=== PATIENT | male | born 1945 | race Caucasian/White ===

== ENCOUNTER → 2020-05-01 11:20 | Outpatient (CLI) | payer MEDICARE, OTHER, SELFPAY ==
[2020-05-03 08:48] LABS: COVID19 Sendout Not Detected (Not Detect)
== END ==
PROVIDERS: Family Provider Internal Medicine; PCP Internal Medicine; Visit Provider Nurse Practitioner
DX: Z01.812 Encounter for preprocedural laboratory examination (principal)
CPT/HCPCS: 87635

== ENCOUNTER 2020-05-04 10:13 | Day surgery (SDC) | payer MEDICARE, OTHER, SELFPAY ==
--- NOTE | 2020-05-03 12:05 | PM.PREOP ---
Pre-operative Note COVID-19 COVID-19 status: Negative Interval Note History & Physical reviewed/Exam performed by Physician: Yes Changes to H&P: No
--- NOTE | 2020-05-03 12:10 | PM.OP.1 ---
Operative Date/Time/Diagnoses Date of procedure: 05/04/20 Time of procedure: 11:45 Procedure & Clinicians Procedure: Preoperative diagnoses: 1. Right complex advanced nuclear sclerotic and cortical cataract. 2. Myopia and astigmatism which he likes to correct with a toric intraocular lens implant with a nearsighted target 3. Atrial fibrillation 4. Coronary artery disease 5. Pre diabetes Postoperative diagnoses: 1. Complex cataract removed by phacoemulsification with placement of a toric posterior chamber intraocular lens. 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 He is a high myope and has high astigmatism The patient wants surgery to improve vision. He chooses a toric intraocular lens implant with a target -2.50. His cataract is very advanced and there was poor red reflex use of capsular extra safety is planned. The patient was taken to the operating room and in a sitting position topical proparacaine drops were placed. Indelible ink amezcua were placed at the 90 and 180 degree meridian. He was then given IV sedation. A drop of proparacaine is planning and he is prepped using Betadine solution, and draped in the usual sterile fashion. Topical lidocaine jelly was then placed. Temporal approach was made, a 1 mm side-port incision was made 90? from the proposed clear corneal incision position. Phenylephrine 1.5% mixed with 1% xylocaine 0.2 cc was placed into the anterior chamber. Due to poor red reflex and air bubble was placed followed by Visudyne capsular dye onto the anterior capsule. This was then irrigated out with BSS. Viscoat followed by Healon was then placed. A 2.6 mm clear incision with a 2.6 mm blade was placed. A 360 degree capsulorrhexis style capsulotomy was then performed with a cystitome needle on a Healon greatly aided by the capsular dye. Hydrodelineation and hydrodissection were performed. The phacoemulsification unit is introduced, and sculpting notice used to groove the central lens. It had a very dense nuclear core. It is then removed in chopping mode. Epi nucleus is removed with epinuclear mode and irrigation aspiration was used to remove the peripheral cortex. The posterior capsule is polished. The intraocular lens is selected, inspected, power confirmed, and placed in the posterior chamber and rotated to the desired axis of 86?. The wound was stromally hydrated and tested for leaks, there was none and it was left sutureless. Vigamox 0.1 cc was placed into the anterior chamber. Kenalog 0.2 cc was placed in the superior subconjunctival space. A drop of antibiotic and was placed and a bandage contact lens placed and the eye shielded. The patient was stable and returned to the recovery room in excellent condition. Dictated by: Nirali Guevara MD Copy to: [facility] Same procedure as scheduled: Yes
[2020-05-04] MEDS: PROPARACAINE 0.5% OPHTH SOL 2 DROPS EYE-OP ×3 (11:12→12:22)
[2020-05-04 11:13] VITALS: BP 118/72; PULSE 66; RESP 16; TEMP 37; O2SAT 99; BMI 29.0
[2020-05-04] MEDS: CATARACT EYE COMPOUND (10 DROPS/SYRINGE) 3 DROPS EYE-OP (11:24)
[2020-05-04] MEDS: CHONDROIDTIN/SOD HYALURONATE 1.05 ML SYRINGE INTRAOCULA ×2 (12:27→13:06)
[2020-05-04] MEDS: ERYTHROMYCIN OPHTH 1 GM OINT 1 APPLIC EYE-RIGHT (12:28)
[2020-05-04] MEDS: HYALURONATE SODIUM 10 MG/ML SYRINGE INJ (12:28)
[2020-05-04] MEDS: LIDOCAINE JELLY 2% 5 ML 1 APPLIC TOP (12:28)
[2020-05-04] MEDS: MOXIFLOXACIN INJ 5 MG/ML VIAL EYE-OP (12:29)
[2020-05-04] MEDS: BALANCED SALT IRRIG SOLN NO.2 500 ML, EPINEPHrine 1 MG IRR (12:29)
[2020-05-04] MEDS: PHENYLEPHRINE/LIDOCAINE VIAL (OR) 0.2 ML EYE-OP (12:29)
[2020-05-04] MEDS: TRIAMCINOLONE 50 MG/5 ML VIAL INJ (12:29)
[2020-05-04] MEDS: TRYPAN BLUE 0.5 ML SYRINGE INJ (12:32)
[2020-05-04 13:18] VITALS: BP 104/66; PULSE 58; RESP 12; TEMP 36.9; O2SAT 97
== END 2020-05-04 13:35 | disposition home or self-care (01) ==
LOC: OR 10:20
PROVIDERS: Family Provider Internal Medicine; PCP Internal Medicine; Referring Provider Ophthalmology; Visit Provider Ophthalmology
PROC: (CPT 66982; principal; 2020-05-04 11:45)
DX: H25.811 Combined forms of age-related cataract, right eye (principal); H52.11 Myopia, right eye; H52.201 Unspecified astigmatism, right eye; I48.91 Unspecified atrial fibrillation; I25.10 Atherosclerotic heart disease of native coronary artery without angina pectoris; R73.03 Prediabetes
CPT/HCPCS: 66982; J0171; J2250; J2704; J3301; V2787

== ENCOUNTER → 2020-05-16 14:51 | Outpatient (CLI) | payer MEDICARE, OTHER, SELFPAY ==
[2020-05-16 16:48] LABS: COVID19 -Nasal RAPID Negative (Negative)
== END ==
PROVIDERS: Family Provider Internal Medicine; PCP Internal Medicine; Visit Provider Physician Assistant
DX: Z11.59 Encounter for screening for other viral diseases (principal)
CPT/HCPCS: 87635

== ENCOUNTER 2020-05-18 08:59 | Day surgery (SDC) | payer MEDICARE, OTHER, SELFPAY ==
--- NOTE | 2020-05-18 07:47 | PM.PREOP ---
Pre-operative Note COVID-19 COVID-19 status: Negative Interval Note History & Physical reviewed/Exam performed by Physician: Yes Changes to H&P: No
--- NOTE | 2020-05-18 07:48 | PM.OP.1 ---
Operative Date/Time/Diagnoses Date of procedure: 05/18/20 Time of procedure: 10:45 Procedure & Clinicians Procedure: Preoperative diagnoses: 1. Complex advanced mature Nuclear sclerotic cataract with need for capsular dye. 2. Astigmatism which is to be corrected with a toric intraocular lens implant. 3. Pre diabetes 4. Multiple vessel coronary artery disease 5. Status post myocardial infarction 6. Atrial fibrillation Postoperative diagnoses: 1. Complex cataract removal with phacoemulsification with toric posterior chamber intraocular lens implant placed and use of capsular dye. Procedure: Complex Phacoemulsification with posterior chamber toric intraocular lens implant. 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 He is a high myope and has had successful surgery in his right eye with a myopic target. The patient wants surgery to improve vision and astigmatism. He desires topical anesthesia and a myopic target. The patient was taken to the operating room and proparacaine drops placed. Indelible ink amezcua were placed at the 90 and 180 degree meridian. The patient was placed on the operating room table and given IV sedation. A additional topical proparacaine was placed , prepped using Betadine solution, and draped in the usual sterile fashion. 2% topical xylocaine jelly and cornea. Temporal approach was made, a 1 mm side-port incision was made 90? from the proposed corneal wound. Phenylephrine 1.5% mixed with 1% xylocaine 0.2 cc was placed into the anterior chamber. An air bubble was placed followed byVisudyne capsular dye. Dye was then irrigated out using BSS. Viscoat followed by Healon was then placed. A 2.6 mm clear incision with a 2.6 mm blade was placed at the 170 degree meridian. A 360 degree capsulorrhexis style capsulotomy was then performed with a cystitome needle on a Healon greatly aided by the capsular dye. Very deep-set orbit. Completed with Utrata forceps Hydrodelineation and hydrodissection were performed. The phacoemulsification unit is introduced, and sculpting used to groove the central lens. It is then removed in chopping mode. Epi nucleus is removed with epinuclear mode and irrigation aspiration was used to remove the peripheral cortex. The posterior capsule is polished. The intraocular lens is selected, inspected, power confirmed, and placed in the posterior chamber at the desired meridian of 092 ?. The pupil was not constricted. The wound was stromally hydrated and tested for leaks, there was none and it was left sutureless. Vigamox 0.1 cc was placed into the anterior chamber. Kenalog 0.2 cc was placed in the superior subconjunctival space. A drop of antibiotic and was placed and the eye was shielded. The patient was stable and returned to the recovery room in excellent condition. Dictated by: Nriali Guevara MD Copy to: [facility] Same procedure as scheduled: Yes
[2020-05-18] MEDS: PROPARACAINE 0.5% OPHTH SOL 2 DROPS EYE-OP ×3 (09:24→10:24)
[2020-05-18 09:26] VITALS: BP 142/68; PULSE 62; RESP 12; TEMP 36.8; O2SAT 99; BMI 28.6
[2020-05-18] MEDS: CATARACT EYE COMPOUND (10 DROPS/SYRINGE) 3 DROPS EYE-OP (09:36)
[2020-05-18] MEDS: MOXIFLOXACIN INJ 5 MG/ML VIAL EYE-OP (10:37)
[2020-05-18] MEDS: HYALURONATE SODIUM 10 MG/ML SYRINGE INJ (10:37)
[2020-05-18] MEDS: CHONDROIDTIN/SOD HYALURONATE 1.05 ML SYRINGE INTRAOCULA (10:37)
[2020-05-18] MEDS: PHENYLEPHRINE/LIDOCAINE VIAL (OR) 0.2 ML EYE-OP (10:38)
[2020-05-18] MEDS: TRIAMCINOLONE 50 MG/5 ML VIAL INJ (10:38)
[2020-05-18] MEDS: BALANCED SALT IRRIG SOLN NO.2 500 ML, EPINEPHrine 1 MG IRR (10:38)
[2020-05-18] MEDS: TRYPAN BLUE 0.5 ML SYRINGE INJ (10:39)
[2020-05-18 14:42] VITALS: BP 98/64; PULSE 67; RESP 12; TEMP 36.6; O2SAT 93
== END 2020-05-18 11:38 | disposition home or self-care (01) ==
LOC: OR 09:07
PROVIDERS: Family Provider Internal Medicine; PCP Internal Medicine; Referring Provider Internal Medicine; Visit Provider Ophthalmology
PROC: (CPT 66982; principal; 2020-05-18 10:45)
DX: H25.12 Age-related nuclear cataract, left eye (principal); I48.91 Unspecified atrial fibrillation; I10 Essential (primary) hypertension; R73.03 Prediabetes; I25.10 Atherosclerotic heart disease of native coronary artery without angina pectoris; I25.2 Old myocardial infarction; G43.909 Migraine, unspecified, not intractable, without status migrainosus
CPT/HCPCS: 66982; J0171; J2250; J3301; V2787

== ENCOUNTER 2022-03-14 13:30 | Emergency (ER) | payer MEDICARE, OTHER, SELFPAY ==
[2022-03-14] VITALS (11 sets, daily range): BP systolic 125–172; BP diastolic 61–92; PULSE 52–72; RESP 12–29; TEMP 37.1; O2SAT 97–99; BMI 29.1
--- NOTE | 2022-03-14 14:20 | DI.RAD.S_ITS ---
PROCEDURE: XR CHEST 1V INDICATIONS: chest pain TECHNIQUE: One view of the chest was acquired. COMPARISON: [facility], , CHEST 1 VIEW, 01/10/2017, 16:10. FINDINGS: Surgical changes and devices: None. Lungs and pleura: Lungs are clear. No pleural effusions or pneumothorax. Mediastinum: Mediastinal contours appear normal. Heart size is normal. Bones and chest wall: No suspicious bony lesions. Overlying soft tissues appear unremarkable. IMPRESSION: No acute cardiopulmonary findings Approved by: Jacob Burt M.D. on 03/14/2022 at 14:20
[2022-03-14 14:44] LABS: Add Manual Diff / Slide Review NO; Basophils Absolute Auto 0 /uL (0-100); Basophils Percent Auto 0.4 % (0-2); Eosinophils Absolute Auto 100 /uL (0-450); Eosinophils Percent Auto 1.9 % (2-4); Hematocrit 39.9 % (41-53); Hemoglobin 13.8 g/dL (13.5-17.5); Lymphocytes Absolute Auto 1500 /uL (1100-4500); Lymphocytes Percent Auto 24.4 % (25-40); Mean Corpuscular HGB Conc 34.5 % (30-36); Mean Corpuscular Hemoglobin 31.1 PG (26-34); Monocytes Absolute Auto 700 /uL (0-900); Monocytes Percent Auto 11.2 % (3-14); Neutrophils Absolute Auto 3800 /uL (1500-7000); Neutrophils Percent Auto 62.1 % (50-75); Platelet Count 157 X10^3/uL (150-400); Red Blood Cell Count 4.43 X10^6/uL (4.5-5.9); White Blood Cell Count 6.1 X10^3/uL (4.5-11.0)
[2022-03-14 14:47] LABS: Prothrombin Time 11.6 SECONDS (10.1-12.7)
[2022-03-14 14:49] LABS: PTT Partial Thromboplastin Tim 32 SECONDS (26-36)
[2022-03-14 14:51] LABS: Alanine Aminotransferase 31 IU/L (<50); Albumin 4.7 g/dL (3.5-5.0); Albumin Globulin Ratio 1.6 (1.0-2.8); Alkaline Phosphatase 47 U/L (38-126); Aspartate Aminotransferase 36 IU/L (17-59); BUN Creatinine Ratio 19.2 (6-22); Bilirubin Total 0.6 mg/dL (0.2-1.3); Blood Urea Nitrogen 24 mg/dL (9-20); Calcium 10.4 mg/dL (8.4-10.2); Carbon Dioxide 30 mmol/L (22-32); Chloride 100 mmol/L (98-107); Creatine Kinase 264 U/L (55-170); Estimated Glomerular Filt Rate > 60 mL/min (>60); Globulin 2.9 g/dL (1.7-4.1); Glucose 93 mg/dL (80-110); HEMOLYSIS < 15 (0-50); Lipase 81 U/L (23-300); Magnesium 2.1 mg/dL (1.6-2.3); Potassium 4.4 mmol/L (3.4-5.1); Sodium 139 mmol/L (137-145); Total Protein 7.6 g/dL (6.3-8.2)
[2022-03-14 15:02] LABS: Troponin I < 0.012 ng/mL (0.01-0.034)
[2022-03-14 15:06] LABS: CKMB % Relative Index 2.2 % (1.5-5.0); Creatine Kinase MB 5.83 ng/mL (<2.37)
--- NOTE | 2022-03-14 17:05 | ED_ITS ---
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 Patient states that he has a history of atrial fibrillation, eventually atrial flutter with 29 cardioversions in his past, no recent sustained arrhythmias but he states he feels his PACs and occasional bigeminy which has captured on his home monitoring device. Patient also endorses history of 5 alcohol ablation for atrial fibrillation and flutter, the 1st time was failed because he had an active MD and instead received a stent to his RCA. Has since had clean cardiac angiography. He is not on anticoagulants. Patient states he has not been able to capture any arrhythmia on EKG yet and he is not had any chest pain, shortness of breath, weakness, nausea, vomiting or other symptom at all. He states he has worn a Holter monitor in the past without any signs of an abnormal rhythm. He states he discontinued this compounded supplement 2 days ago and has had improvement in his episodes PACs. Patient's clothespin drier operator is Dr. Tyrone haddad out of [place], his primary care provider is Dr. Neumann. Related Data Home Medications Medication Instructions Recorded Confirmed metformin 500 mg tablet,extended 500 mg PO BIDAC ##0 09/27/16 05/18/20 release 24 hr (Glucophage XR) [DHEA] 50 mg PO QDAY ##0 01/10/17 05/04/20 [PHOSPHATIDYL SERINE] 100 mg PO HS ##0 01/10/17 05/04/20 [PREGNENOLONE] 100 mg PO QDAY ##0 01/10/17 05/04/20 [ULTRA VITAMIN K] 1 PO QDAY ##0 01/10/17 [VINPOCETINE] 1 tab PO HS ##0 01/10/17 05/04/20 gabapentin 300 mg capsule 600 mg PO BID ##0 01/10/17 05/18/20 (Neurontin) lutein 25 mg-zeaxanthin 5 mg 1 cap PO QDAY ##0 01/10/17 05/18/20 capsule metoprolol succinate 50 mg 50 mg PO BID ##0 01/10/17 05/18/20 tablet,extended release 24 hr dofetilide 250 mcg capsule 500 mcg PO BID ##0 06/02/17 05/18/20 simvastatin 20 mg tablet 20 mg PO BEDTIME ##0 06/02/17 05/18/20 Aspirin Low Dose 81 mg PO DAILY 05/04/20 05/18/20 lisinopril 30 mg tablet 30 mg PO DAILY 05/04/20 05/18/20 levothyroxine 75 mcg capsule 75 mcg PO BID 05/18/20 05/18/20 Allergies Allergy/AdvReac Type Severity Reaction Status Date / Time No Known Drug Allergies Allergy Verified 05/04/20 10:59 Review of Systems <CHAI Collazo - Last Filed: 03/14/22 20:15> Review of Systems Narrative: Review of systems is negative for acute abnormalities unless otherwise noted in HPI Patient History <CHAI Collazo - Last Filed: 03/14/22 20:15> Social History household members: spouse Smoking Status: Former smoker alcohol intake: current Smoking Status: Former smoker alcohol intake frequency: a few times a week Substance Use Type: does not use Exam <CHAI Collazo - Last Filed: 03/14/22 20:15> Narrative Exam Narrative: Reviewed vitals signs and nursing notes. General: cooperative, comfortable, in no acute distress, well groomed HEENT: symmetrical facial expressions, moist mucous membranes Cardiovascular: regular rate and rhythm, occasional PACs on the monitor, transient bigeminy without any persistent arrhythmia, no peripheral edema, warm extremities, S1-S2 without murmur Respiratory: normal effort, able to speak in complete sentences, without wheezing, stridor, or abnormal breath sounds. No retractions or tachypnea. GI: abdomen soft, nontender to palpation, nondistended, without masses, rebound tenderness or exquisite tenderness with exam. MSK: moves all extremities, neurovascularly intact, no weakness, normal tone Skin: brisk capillary refill, without pallor or erythema Neuro: normal speech and cognition, A&O x3, ambulatory, clear speech Psych: mental status is grossly normal, congruent mood, normal affect, pleasant and cooperative Initial Vital Signs Initial Vital Signs: Vital Signs Temperature 98.8 F 03/14/22 14:11 Pulse Rate 60 03/14/22 14:11 Respiratory Rate 16 03/14/22 14:11 Blood Pressure 172/76 H 03/14/22 14:11 Pulse Oximetry 99 03/14/22 14:11 Oxygen Delivery Method 03/14/22 14:11 <Lanette Klein DO - Last Filed: 03/15/22 08:32> Initial Vital Signs Initial Vital Signs: Vital Signs Temperature 98.8 F 03/14/22 14:11 Pulse Rate 60 03/14/22 14:11 Respiratory Rate 16 03/14/22 14:11 Blood Pressure 172/76 H 03/14/22 14:11 Pulse Oximetry 99 03/14/22 14:11 Oxygen Delivery Method 03/14/22 14:11 Scores <CHAI Collazo - Last Filed: 03/14/22 20:15> HEART Score Heart Score history: Slightly Suspicious Heart Score EKG: Normal Heart Score Age: > or = 65 years old Heart Score risk factors: 1-2 risk factors Heart Score troponin: < or = to normal limit Heart Score Total: 3 <Lanette Klein DO - Last Filed: 03/15/22 08:32> HEART Score Heart Score Total: 3 Course <CHAI Collazo - Last Filed: 03/14/22 20:15> Orders Ordered: ED Orders 03/14/22 14:20 XR chest 1V Stat EKG-12 Lead Stat 03/14/22 14:30 Complete Blood Count AUTO DIFF Stat Comprehensive Metabolic Panel Stat Lipase Stat Magnesium Stat Partial Thromboplastin Time Stat Prothrombin Time INR Stat Troponin & CK Cardiac Panel Stat 03/14/22 16:41 UA Complete [Urinalysis and Microscopic] Stat 03/14/22 17:04 EKG-12 Lead Stat 03/14/22 17:05 Consult to Cardiology Stat Vital Signs Vital signs: Vital Signs - 8 hr 03/14/22 14:11 03/14/22 16:00 03/14/22 16:02 Temperature 98.8 F Pulse Rate 60 55 L 72 Respiratory Rate 16 12 12 Blood Pressure 172/76 H 146/68 H 125/63 Pulse Oximetry 99 98 98 Oxygen Delivery Method Room Air Room Air Room Air 03/14/22 16:19 03/14/22 16:31 03/14/22 16:32 Temperature Pulse Rate 52 L 70 Respiratory Rate 13 17 Blood Pressure 135/61 Pulse Oximetry 97 99 Oxygen Delivery Method 03/14/22 16:32 03/14/22 17:00 03/14/22 17:01 Temperature Pulse Rate 60 60 64 Respiratory Rate 14 25 H 29 H Blood Pressure Pulse Oximetry 98 98 98 Oxygen Delivery Method 03/14/22 17:01 03/14/22 17:30 03/14/22 17:31 Temperature Pulse Rate 57 L Respiratory Rate 12 Blood Pressure 168/92 H 125/63 Pulse Oximetry 97 Oxygen Delivery Method 03/14/22 17:31 03/14/22 18:00 03/14/22 18:00 Temperature Pulse Rate 56 L 67 Respiratory Rate 13 23 Blood Pressure 158/85 H Pulse Oximetry 97 97 Oxygen Delivery Method <Lanette Klein, DO - Last Filed: 03/15/22 08:32> Orders Ordered: ED Orders 03/14/22 14:20 XR chest 1V Stat EKG-12 Lead Stat 03/14/22 14:30 Complete Blood Count AUTO DIFF Stat Comprehensive Metabolic Panel Stat Lipase Stat Magnesium Stat Partial Thromboplastin Time Stat Prothrombin Time INR Stat Troponin & CK Cardiac Panel Stat 03/14/22 16:41 UA Complete [Urinalysis and Microscopic] Stat 03/14/22 17:04 EKG-12 Lead Stat 03/14/22 17:05 Consult to Cardiology Stat Vital Signs Vital signs: Vital Signs - 8 hr 03/14/22 14:11 03/14/22 16:00 03/14/22 16:02 Temperature 98.8 F Pulse Rate 60 55 L 72 Respiratory Rate 16 12 12 Blood Pressure 172/76 H 146/68 H 125/63 Pulse Oximetry 99 98 98 Oxygen Delivery Method Room Air Room Air Room Air 03/14/22 16:19 03/14/22 16:31 03/14/22 16:32 Temperature Pulse Rate 52 L 70 Respiratory Rate 13 17 Blood Pressure 135/61 Pulse Oximetry 97 99 Oxygen Delivery Method 03/14/22 16:32 09/14/22 17:00 03/14/22 17:01 Temperature Pulse Rate 60 60 64 Respiratory Rate 14 25 H 29 H Blood Pressure Pulse Oximetry 98 98 98 Oxygen Delivery Method 03/14/22 17:01 03/14/22 17:30 03/14/22 17:31 Temperature Pulse Rate 57 L Respiratory Rate 12 Blood Pressure 168/92 H 125/63 Pulse Oximetry 97 Oxygen Delivery Method 03/14/22 17:31 03/14/22 18:00 03/14/22 18:00 Temperature Pulse Rate 56 L 67 Respiratory Rate 13 23 Blood Pressure 158/85 H Pulse Oximetry 97 97 Oxygen Delivery Method MDM - Arrhythmia/Palpitations <CHAI Collazo - Last Filed: 03/14/22 20:15> Lab Data Result diagrams: 03/14/22 14:30 03/14/22 14:30 Labs: Lab Results 03/14/22 03/14/22 03/14/22 Range/Units 14:30 14:30 14:30 WBC 6.1 (4.5-11.0) X10^3/uL RBC 4.43 L (4.5-5.9) X10^6/uL Hgb 13.8 (13.5-17.5) g/dL Hct 39.9 L (41-53) % MCV 90.0 (80-100) fL MCH 31.1 (26-34) PG MCHC 34.5 (30-36) % RDW 13.0 (11.6-14.8) % Plt Count 157 (150-400) X10^3/uL Neut % (Auto) 62.1 (50-75) % Lymph % (Auto) 24.4 L (25-40) % Williams % (Auto) 11.2 (3-14) % Eos % (Auto) 1.9 L (2-4) % Baso % (Auto) 0.4 (0-2) % Neut # (Auto) 3800 (6232-4046) /uL Lymph # (Auto) 1500 (0262-6545) /uL Williams # (Auto) 700 (0-900) /uL Eos # (Auto) 100 (0-450) /uL Baso # (Auto) 0 (0-100) /uL PT 11.6 (10.1-12.7) SECONDS INR 1.0 (0.9-1.3) APTT 32 (26-36) SECONDS Sodium 139 (137-145) mmol/L Potassium 4.4 (3.4-5.1) mmol/L Chloride 100 (98-107) mmol/L Carbon Dioxide 30 (22-32) mmol/L BUN 24 H (9-20) mg/dL Creatinine 1.25 (0.66-1.25) mg/dL Estimated GFR > 60 (>60) mL/min BUN/Creatinine Ratio 19.2 (6-22) Glucose 93 (80-110) mg/dL Calcium 10.4 H (8.4-10.2) mg/dL Magnesium 2.1 (1.6-2.3) mg/dL Total Bilirubin 0.6 (0.2-1.3) mg/dL AST 36 (17-59) IU/L ALT 31 (<50) IU/L Alkaline Phosphatase 47 (38-126) U/L Total Creatine Kinase 264 H (55-170) U/L CK-MB (CK-2) 5.83 H (<2.37) ng/mL CK-MB (CK-2) Rel Index 2.2 (1.5-5.0) % Troponin I < 0.012 (0.01-0.034) ng/mL Total Protein 7.6 (6.3-8.2) g/dL Albumin 4.7 (3.5-5.0) g/dL Globulin 2.9 (1.7-4.1) g/dL Albumin/Globulin Ratio 1.6 (1.0-2.8) Lipase 81 (23-300) U/L Urine Color Urine Appearance Urine pH (4.5-8.0) Ur Specific [place] (1.000-1.035) Urine Protein (Negative) Urine Glucose (UA) (Negative) g/dL Urine Ketones (NEGATIVE) Urine Occult Blood (Negative) Urine Nitrate (Negative) Urine Bilirubin (NEGATIVE) Urine Urobilinogen (0.2) E.U./dL Ur Leukocyte Esterase (NEGATIVE) Urine RBC (0-5/HPF) Urine WBC (0-5/HPF) Urine Bacteria (None) Ur Culture Indicated? 03/14/22 Range/Units 16:41 WBC (4.5-11.0) X10^3/uL RBC (4.5-5.9) X10^6/uL Hgb (13.5-17.5) g/dL Hct (41-53) % MCV (80-100) fL MCH (26-34) PG MCHC (30-36) % RDW (11.6-14.8) % Plt Count (150-400) X10^3/uL Neut % (Auto) (50-75) % Lymph % (Auto) (25-40) % Williams % (Auto) (3-14) % Eos % (Auto) (2-4) % Baso % (Auto) (0-2) % Neut # (Auto) (5794-0622) /uL Lymph # (Auto) (7632-8269) /uL Williams # (Auto) (0-900) /uL Eos # (Auto) (0-450) /uL Baso # (Auto) (0-100) /uL PT (10.1-12.7) SECONDS INR (0.9-1.3) APTT (26-36) SECONDS Sodium (137-145) mmol/L Potassium (3.4-5.1) mmol/L Chloride (98-107) mmol/L Carbon Dioxide (22-32) mmol/L BUN (9-20) mg/dL Creatinine (0.66-1.25) mg/dL Estimated GFR (>60) mL/min BUN/Creatinine Ratio (6-22) Glucose (80-110) mg/dL Calcium (8.4-10.2) mg/dL Magnesium (1.6-2.3) mg/dL Total Bilirubin (0.2-1.3) mg/dL AST (17-59) IU/L ALT (<50) IU/L Alkaline Phosphatase (38-126) U/L Total Creatine Kinase (55-170) U/L CK-MB (CK-2) (<2.37) ng/mL CK-MB (CK-2) Rel Index (1.5-5.0) % Troponin I (0.01-0.034) ng/mL Total Protein (6.3-8.2) g/dL Albumin (3.5-5.0) g/dL Globulin (1.7-4.1) g/dL Albumin/Globulin Ratio (1.0-2.8) Lipase (23-300) U/L Urine Color Yellow Urine Appearance Clear Urine pH 7.0 (4.5-8.0) Ur Specific [place] 1.010 (1.000-1.035) Urine Protein Negative (Negative) Urine Glucose (UA) Negative (Negative) g/dL Urine Ketones Negative (NEGATIVE) Urine Occult Blood Negative (Negative) Urine Nitrate Negative (Negative) Urine Bilirubin Negative (NEGATIVE) Urine Urobilinogen 0.2 (0.2) E.U./dL Ur Leukocyte Esterase Negative (NEGATIVE) Urine RBC None seen (0-5/HPF) Urine WBC None seen (0-5/HPF) Urine Bacteria None seen (None) Ur Culture Indicated? Cult not indicated Urine Dip Bedside Urine Glucose Negative Bedside Urine Bilirubin - Negative Bedside Urine Ketone - Negative Urine Specific [place] 1.010 Bedside Urine Occult Blood - Negative Bedside Urine pH 6.5 Bedside Urine Protein - Negative Bedside Urine Urobilinogen - Negative Bedside Urine Nitrite - Negative Bedside Urine Leukocytes - Negative Esterase Imaging Data Chest x-ray: Radiologist's Impresson: PROCEDURE:? XR CHEST 1V ? INDICATIONS:? chest pain ? TECHNIQUE:? One view of the chest was acquired.? ? COMPARISON:? [facility], , CHEST 1 VIEW, 01/10/2017, 16:10. ? FINDINGS:? ? Surgical changes and devices:? None.? ? Lungs and pleura:? Lungs are clear.? No pleural effusions or pneumothorax.? ? Mediastinum:? Mediastinal contours appear normal.? Heart size is normal.? ? Bones and chest wall:? No suspicious bony lesions.? Overlying soft tissues appear unremarkable.? ? IMPRESSION:? No acute cardiopulmonary findings ? ? ? Approved by: Jacob Burt M.D. on 03/14/2022 at 14:20 ECG Data Interpretation: EKG independently reviewed by myself at 1431 reveals normal sinus rhythm at 70 bpm with regular axis and intervals. No STEMI, ST segment changes, arrhythmia, or acute ischemic changes. Repeat : EKG independently reviewed by myself at 1737 reveals sinus bradycardia at 59 bpm with regular axis and intervals. No STEMI, ST segment changes, arrhythmia, or acute ischemic changes. MDM Narrative Medical decision making narrative: This is a 76-year-old male presents to the emergency department with concern about increasing PACs, bigeminy, and transient arrhythmia episodes which he has sensation of over the last week since he has been on a supplement called [email or web address] for urinary health. Please see HPI for active ingredients. Patient discontinued this medication 2 days ago and states that he still has sensation of PACs and has capture them on his home monitor which he calls an omicron. In the emergency department today on cardiac monitoring he did have occasional PACs and very short episodes of bigeminy which did not last longer than 10 seconds. Two EKGs were completed approximately 3 hours apart without any PACs, arrhythmia noted. Patient denies any chest pain, shortness of breath, exertional worsening of symptoms, edema in his bilateral extremities, weakness, altered mental status or any other symptom. Patient has recent cardiac catheterization without abnormality. Discussion with on-call clothespin drier operator for Dr. Bar at [facility] who does not recommend any medications today or any treatment today but will forward to Dr. Bar who will arrange for Holter monitoring and follow-up in clinic. Patient understands to also call for scheduled follow-up. Records and images were sent to [facility] and patient will follow-up accordingly. Lab work is reassuring overall, troponin was not elevated without any electrolyte abnormalities. Patient does not have any leukocytosis, INR is 1.0, creatinine is 1.25 above his baseline of 1.1, mild hypercalcemia of 10.4, total CK is elevated at 264 with CK-MB of 5.83, this is elevated and these labs were discussed with cardiology. Troponin of 0.012 and no elevation in liver enzymes, UA is negative for WBCs RBCs and leukocyte esterase. Chest x-ray without acute abnormality, normal heart size. Patient is appropriate and amenable to discharge home. Vital signs are stable on repeat examination is unremarkable. Patient has been informed of results. Patient has been given strict return to ER precautions for any new or worsening symptoms. Patient understands to follow up closely with outpatient providers as instructed. Patient understands plan and agrees to discharge home. All questions and concerns answered at this time. <Lanette Klein, DO - Last Filed: 03/15/22 08:32> Lab Data Labs: Lab Results 03/14/22 03/14/22 03/14/22 Range/Units 14:30 14:30 14:30 WBC 6.1 (4.5-11.0) X10^3/uL RBC 4.43 L (4.5-5.9) X10^6/uL Hgb 13.8 (13.5-17.5) g/dL Hct 39.9 L (41-53) % MCV 90.0 (80-100) fL MCH 31.1 (26-34) PG MCHC 34.5 (30-36) % RDW 13.0 (11.6-14.8) % Plt Count 157 (150-400) X10^3/uL Neut % (Auto) 62.1 (50-75) % Lymph % (Auto) 24.4 L (25-40) % Williams % (Auto) 11.2 (3-14) % Eos % (Auto) 1.9 L (2-4) % Baso % (Auto) 0.4 (0-2) % Neut # (Auto) 3800 (7754-1675) /uL Lymph # (Auto) 1500 (2356-9383) /uL Williams # (Auto) 700 (0-900) /uL Eos # (Auto) 100 (0-450) /uL Baso # (Auto) 0 (0-100) /uL PT 11.6 (10.1-12.7) SECONDS INR 1.0 (0.9-1.3) APTT 32 (26-36) SECONDS Sodium 139 (137-145) mmol/L Potassium 4.4 (3.4-5.1) mmol/L Chloride 100 (98-107) mmol/L Carbon Dioxide 30 (22-32) mmol/L BUN 24 H (9-20) mg/dL Creatinine 1.25 (0.66-1.25) mg/dL Estimated GFR > 60 (>60) mL/min BUN/Creatinine Ratio 19.2 (6-22) Glucose 93 (80-110) mg/dL Calcium 10.4 H (8.4-10.2) mg/dL Magnesium 2.1 (1.6-2.3) mg/dL Total Bilirubin 0.6 (0.2-1.3) mg/dL AST 36 (17-59) IU/L ALT 31 (<50) IU/L Alkaline Phosphatase 47 (38-126) U/L Total Creatine Kinase 264 H (55-170) U/L CK-MB (CK-2) 5.83 H (<2.37) ng/mL CK-MB (CK-2) Rel Index 2.2 (1.5-5.0) % Troponin I < 0.012 (0.01-0.034) ng/mL Total Protein 7.6 (6.3-8.2) g/dL Albumin 4.7 (3.5-5.0) g/dL Globulin 2.9 (1.7-4.1) g/dL Albumin/Globulin Ratio 1.6 (1.0-2.8) Lipase 81 (23-300) U/L Urine Color Urine Appearance Urine pH (4.5-8.0) Ur Specific [place] (1.000-1.035) Urine Protein (Negative) Urine Glucose (UA) (Negative) g/dL Urine Ketones (NEGATIVE) Urine Occult Blood (Negative) Urine Nitrate (Negative) Urine Bilirubin (NEGATIVE) Urine Urobilinogen (0.2) E.U./dL Ur Leukocyte Esterase (NEGATIVE) Urine RBC (0-5/HPF) Urine WBC (0-5/HPF) Urine Bacteria (None) Ur Culture Indicated? 03/14/22 Range/Units 16:41 WBC (4.5-11.0) X10^3/uL RBC (4.5-5.9) X10^6/uL Hgb (13.5-17.5) g/dL Hct (41-53) % MCV (80-100) fL MCH (26-34) PG MCHC (30-36) % RDW (11.6-14.8) % Plt Count (150-400) X10^3/uL Neut % (Auto) (50-75) % Lymph % (Auto) (25-40) % Williams % (Auto) (3-14) % Eos % (Auto) (2-4) % Baso % (Auto) (0-2) % Neut # (Auto) (9013-0706) /uL Lymph # (Auto) (9314-6475) /uL Williams # (Auto) (0-900) /uL Eos # (Auto) (0-450) /uL Baso # (Auto) (0-100) /uL PT (10.1-12.7) SECONDS INR (0.9-1.3) APTT (26-36) SECONDS Sodium (137-145) mmol/L Potassium (3.4-5.1) mmol/L Chloride (98-107) mmol/L Carbon Dioxide (22-32) mmol/L BUN (9-20) mg/dL Creatinine (0.66-1.25) mg/dL Estimated GFR (>60) mL/min BUN/Creatinine Ratio (6-22) Glucose (80-110) mg/dL Calcium (8.4-10.2) mg/dL Magnesium (1.6-2.3) mg/dL Total Bilirubin (0.2-1.3) mg/dL AST (17-59) IU/L ALT (<50) IU/L Alkaline Phosphatase (38-126) U/L Total Creatine Kinase (55-170) U/L CK-MB (CK-2) (<2.37) ng/mL CK-MB (CK-2) Rel Index (1.5-5.0) % Troponin I (0.01-0.034) ng/mL Total Protein (6.3-8.2) g/dL Albumin (3.5-5.0) g/dL Globulin (1.7-4.1) g/dL Albumin/Globulin Ratio (1.0-2.8) Lipase (23-300) U/L Urine Color Yellow Urine Appearance Clear Urine pH 7.0 (4.5-8.0) Ur Specific [place] 1.010 (1.000-1.035) Urine Protein Negative (Negative) Urine Glucose (UA) Negative (Negative) g/dL Urine Ketones Negative (NEGATIVE) Urine Occult Blood Negative (Negative) Urine Nitrate Negative (Negative) Urine Bilirubin Negative (NEGATIVE) Urine Urobilinogen 0.2 (0.2) E.U./dL Ur Leukocyte Esterase Negative (NEGATIVE) Urine RBC None seen (0-5/HPF) Urine WBC None seen (0-5/HPF) Urine Bacteria None seen (None) Ur Culture Indicated? Cult not indicated Urine Dip Bedside Urine Glucose Negative Bedside Urine Bilirubin - Negative Bedside Urine Ketone - Negative Urine Specific [place] 1.010 Bedside Urine Occult Blood - Negative Bedside Urine pH 6.5 Bedside Urine Protein - Negative Bedside Urine Urobilinogen - Negative Bedside Urine Nitrite - Negative Bedside Urine Leukocytes - Negative Esterase ECG Data Interpretation: EKG independently reviewed by myself at 1431 reveals normal sinus rhythm at 70 bpm with regular axis and intervals. No STEMI, ST segment changes, arrhythmia, or acute ischemic changes. Repeat : EKG independently reviewed by myself at 1737 reveals sinus bradycardia at 59 bpm with regular axis and intervals. No STEMI, ST segment changes, arrhythmia, or acute ischemic changes. Latoya EKG 1.:Sinus rhythm rate 70, p.r. interval 144 QRS [address] changes EKG 2: normal sinus rhythm rate 59 TN interval 160 QRS [address] changes no T-wave inversions Discharge Plan Departure Patient Disposition: Home Clinical Impression: History of palpitations Activity Restrictions/Additional Instructions: *You have been diagnosed with palpitations and PACs and PVCs which were visualized on the monitor without any captured on EKG today unfortunately. When comparing your EKGs with priors, there are no acute changes and this is a great thing. Your lab work today is significant for mildly elevated calcium at 10.4, lower limit is 10.2, total CK elevated at 264, CK-MB is 5.83 without any elevation in troponin. Both of your EKGs do not show any arrhythmia but it was visible that you have occasional PACs and bigeminy on the laboratory monitor. Please follow-up with Dr. Haddad and you will likely wear a Holter monitor again. Please continue avoiding the men's formula and see if this was your trigger. Your records have been sent to [facility] your chest x-ray does not show any acute cardiopulmonary changes, your heart size is normal. It was a pleasure to meet you today, thank you for being a good historian and sharing your story and allowing me to consult your providers on your behalf. I wish you the best and look forward to seeing you if you return in the future. I did not give me any additional information as you already know much more about your own arrhythmias then our Handy handouts. Our transaction advisory services manager is Radha, her phone number is [phone], and our current hospital aides and assistants teacher who is going to fulfill her role is Gem and her number is [phone]. *What to do: *Please continue to take your regular medications as directed. [ ] New medication prescriptions sent to your pharmacy: [ ] [ ] New medication written as a paper prescription [x ] No new medications given *Please follow up with your primary care provider in 2-3 days, call for an appointment. Let them know you were seen in the Emergency Department and that we asked that you be seen for follow-up. We will electronically transmit a record of today's note if your PCP is in our system *If you do not have a primary care provider please contact [phone] to establish care with one of the [facility] primary care providers. *Return to Emergency Department if you should have any new, worsening, or concerning symptoms, such as [fever greater than 101F, chills, worsening pain, persistent vomiting or other bothersome symptoms]. Prescriptions: No Action metformin [Glucophage XR] 500 MG tablet extended release 24 hr 500 mg PO BIDAC Qty: 0 [DHEA] 50 mg PO QDAY Qty: 0 metoprolol succinate 50 MG tablet extended release 24 hr 50 mg PO BID Qty: 0 [PREGNENOLONE] 100 mg PO QDAY Qty: 0 gabapentin [Neurontin] 300 MG capsule 600 mg PO BID Qty: 0 lutein-zeaxanthin 1 EACH capsule 1 cap PO QDAY Qty: 0 [PHOSPHATIDYL SERINE] 100 mg PO HS Qty: 0 [ULTRA VITAMIN K] 1 PO QDAY Qty: 0 [VINPOCETINE] 1 tab PO HS Qty: 0 dofetilide 250 MCG capsule 500 mcg PO BID Qty: 0 simvastatin 20 MG tablet 20 mg PO BEDTIME Qty: 0 lisinopril 30 mg Tablet 30 mg PO DAILY Aspirin Low Dose tablet 81 mg PO DAILY levothyroxine 75 mcg Capsule 75 mcg PO BID Referrals: Gertrude Finney MD [Primary Care Provider] - Visit Report Forms: Patient Portal/API <Lanette lKein DO - Last Filed: 03/15/22 08:32> Cosign ED Attending Nadya Attestation: I was immediately available in the department for consultation. Documentation has been reviewed. I agree with assessment and plan.
[2022-03-14 18:10] LABS: Appearance Urine UA CLEAR; Bilirubin Urine UA NEGATIVE (NEGATIVE); Color Urine UA YELLOW; Glucose Urine UA NEGATIVE (Negative); Ketones Urine UA NEGATIVE (NEGATIVE); Leukocyte Esterase Urine UA NEGATIVE (NEGATIVE); Nitrite Urine UA NEGATIVE (Negative); Occult Blood Urine UA NEGATIVE (Negative); Protein Urine UA NEGATIVE (Negative); Urobilinogen Urine UA 0.2 E.U./dL (0.2)
[2022-03-14 18:30] LABS: Bacteria Urine None Seen; Culture Indicated Urine Cult Not Indicated; RBC Urine None Seen (0-5/HPF); WBC Urine None Seen (0-5/HPF)
== END 2022-03-14 18:27 | disposition home or self-care (01) ==
PROVIDERS: Emergency Medicine; Emergency Provider Nurse Practitioner Critical Care Medicine; Family Provider Internal Medicine; PCP Internal Medicine
DX: R00.2 Palpitations (principal); R07.9 Chest pain, unspecified
CPT/HCPCS: 36415; 71045; 80053; 81001; 81003; 82550; 82553; 83690; 83735; 84484; 85025; 85610; 85730; 93005; 99284

== ENCOUNTER 2022-10-04 11:00 | Emergency (ER) | payer MEDICARE, OTHER, SELFPAY ==
[2022-10-04] VITALS (14 sets, daily range): BP systolic 108–158; BP diastolic 58–76; PULSE 51–76; RESP 14–21; TEMP 36.3; O2SAT 97–100; BMI 29.7
--- NOTE | 2022-10-04 11:07 | DI.RAD.S_ITS ---
PROCEDURE: XR CHEST 1V INDICATIONS: chest pain TECHNIQUE: One view of the chest was acquired. COMPARISON: [facility], CR, XR CHEST 1V, 03/14/2022, 14:41. FINDINGS: Surgical changes and devices: None. Lungs and pleura: Lungs are clear. No pleural effusions or pneumothorax. Mediastinum: Mediastinal contours appear normal. Heart size is normal. Bones and chest wall: No suspicious bony lesions. Overlying soft tissues appear unremarkable. IMPRESSION: No evidence acute pulmonary process. Dictated by: Jaek Lin M.D. on 10/04/2022 at 11:36 Approved by: Jake Lin M.D. on 10/04/2022 at 11:36
--- NOTE | 2022-10-04 11:08 | DI.US.S_ITS ---
PROCEDURE: US ABDOMEN LIMITED INDICATIONS: RUQ PAIN TECHNIQUE: Real-time focused scanning was performed of the abdomen, with image documentation. COMPARISON: None. FINDINGS: Liver is diffusely echogenic, consistent with fatty change. No focal liver mass. Gallbladder is unremarkable without stones or wall thickening. Common duct is not dilated, measuring 4 mm. Visualized portions the pancreas are unremarkable. IMPRESSION: 1. Echogenic liver suggests probable diffuse hepatic steatosis. 2. No evidence of gallstone disease. Dictated by: Jake Lin M.D. on 10/04/2022 at 13:44 Approved by: Jake Lin M.D. on 10/04/2022 at 13:45
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
[2022-10-04 11:23] LABS: Add Manual Diff / Slide Review NO; Basophils Absolute Auto 0 /uL (0-100); Basophils Percent Auto 0.5 % (0-2); Eosinophils Absolute Auto 100 /uL (0-450); Eosinophils Percent Auto 1.9 % (2-4); Hematocrit 40.3 % (41-53); Hemoglobin 13.8 g/dL (13.5-17.5); Lymphocytes Absolute Auto 1600 /uL (1100-4500); Lymphocytes Percent Auto 24.3 % (25-40); Mean Corpuscular HGB Conc 34.3 % (30-36); Mean Corpuscular Hemoglobin 30.9 PG (26-34); Mean Corpuscular Volume 90.1 fL (80-100); Monocytes Absolute Auto 600 /uL (0-900); Monocytes Percent Auto 8.3 % (3-14); Neutrophils Absolute Auto 4300 /uL (1500-7000); Platelet Count 183 X10^3/uL (150-400); Red Blood Cell Count 4.47 X10^6/uL (4.5-5.9); Red Cell Distribution Width 12.8 % (11.6-14.8); White Blood Cell Count 6.7 X10^3/uL (4.5-11.0)
[2022-10-04 11:30] LABS: INR 0.9 (0.9-1.3); Prothrombin Time 10.7 SECONDS (10.1-12.7)
[2022-10-04 11:33] LABS: PTT Partial Thromboplastin Tim 31 SECONDS (26-36)
[2022-10-04 11:35] LABS: Alanine Aminotransferase 46 IU/L (<50); Albumin 4.7 g/dL (3.5-5.0); Albumin Globulin Ratio 1.5 (1.0-2.8); Alkaline Phosphatase 52 U/L (38-126); Aspartate Aminotransferase 45 IU/L (17-59); BUN Creatinine Ratio 16.9 (6-22); Bilirubin Total 0.5 mg/dL (0.2-1.3); Blood Urea Nitrogen 21 mg/dL (9-20); Calcium 10.2 mg/dL (8.4-10.2); Carbon Dioxide 31 mmol/L (22-32); Chloride 99 mmol/L (98-107); Creatine Kinase 277 U/L (55-170); Estimated Glomerular Filt Rate > 60 mL/min (>60); Globulin 3.2 g/dL (1.7-4.1); Glucose 118 mg/dL (80-110); Lipase 87 U/L (23-300); Magnesium 2.2 mg/dL (1.6-2.3); Potassium 4.3 mmol/L (3.4-5.1); Sodium 136 mmol/L (137-145); Total Protein 7.9 g/dL (6.3-8.2)
[2022-10-04 11:46] LABS: Troponin I < 0.012 ng/mL (0.01-0.034)
[2022-10-04 11:50] LABS: CKMB % Relative Index 1.9 % (1.5-5.0); HEMOLYSIS 29 (0-50)
--- NOTE | 2022-10-04 12:16 | ED.CHESTPAIN ---
HPI - Chest Pain General Chief Complaint: Chest Pain Stated Complaint: chest pain T-7 getting worse Time Seen by Provider: 10/04/22 11:08 Source: patient Mode of arrival: Ambulatory Limitations: no limitations History of Present Illness HPI narrative: This is a 76-year-old male with cardiac history of coronary artery disease prior stent, patient has had 31 cardioversions for paroxysmal atrial fibrillation that then had proceeded to atrial flutter. He is had cryo and radiofrequency ablation in the past. Patient has currently on aspirin 81 mg, dofetilide, simvastatin, metoprolol and lisinopril as his daily medications. States for the past week he is had intermittent left-sided chest pressure or pain which has become more frequent and persistent without any clear exacerbating alleviating factors. Patient states yesterday radiated to his left elbow which was the 1st time that had occurred. Otherwise he has not had any radiation. He denies shortness of breath, no diaphoresis, no nausea or vomiting, no lightheadedness or passing out. It has been happening several times daily. It does not seem to be associated specifically with exertion although he notes he exercise today while it was present got worse and then got better when he stopped. Patient states he is had 1 cardiac stent he was told he had 3 vessels that had some partial occlusion but warned stentable. He would follow up with his sheet metal installer Dr. Viera at [facility] last month had EKG and echo which he states had improved from his priors. He had a nuclear med stress test in November of 2021 which showed some residual change but no new changes. He states he is had some prior hand and finger surgeries. L3-L4 disc surgery in 1996. No known drug allergies. No tobacco, 1 or 2 alcoholic drinks weekly, no illicit. Related Data Home Medications Medication Instructions Recorded Confirmed metformin 500 mg tablet,extended 500 mg PO BIDAC ##0 09/27/16 05/18/20 release 24 hr (Glucophage XR) [DHEA] 50 mg PO QDAY ##0 01/10/17 05/04/20 [PHOSPHATIDYL SERINE] 100 mg PO HS ##0 01/10/17 05/04/20 [PREGNENOLONE] 100 mg PO QDAY ##0 01/10/17 05/04/20 [ULTRA VITAMIN K] 1 PO QDAY ##0 01/10/17 [VINPOCETINE] 1 tab PO HS ##0 01/10/17 05/04/20 gabapentin 300 mg capsule 600 mg PO BID ##0 01/10/17 05/18/20 (Neurontin) lutein 25 mg-zeaxanthin 5 mg 1 cap PO QDAY ##0 01/10/17 05/18/20 capsule metoprolol succinate 50 mg 50 mg PO BID ##0 01/10/17 05/18/20 tablet,extended release 24 hr dofetilide 250 mcg capsule 500 mcg PO BID ##0 06/02/17 05/18/20 simvastatin 20 mg tablet 20 mg PO BEDTIME ##0 06/02/17 05/18/20 Aspirin Low Dose 81 mg PO DAILY 05/04/20 05/18/20 lisinopril 30 mg tablet 30 mg PO DAILY 05/04/20 05/18/20 levothyroxine 75 mcg capsule 75 mcg PO BID 05/18/20 05/18/20 Previous Rx's Medication Instructions Recorded nitroglycerin 0.4 mg sublingual 0.4 mg sublingual Q5-15M PRN chest 10/04/22 tablet pain #10 tabs Allergies Allergy/AdvReac Type Severity Reaction Status Date / Time No Known Drug Allergies Allergy Verified 10/04/22 11:08 Review of Systems Review of Systems ROS Unobtainable: All systems reviewed & are unremarkable except as noted in HPI and below Patient History Social History household members: spouse Smoking Status: Former smoker alcohol intake: current Smoking Status: Former smoker alcohol intake frequency: a few times a week Substance Use Type: does not use Exam Narrative Exam Narrative: GENERAL: Alert and oriented x three, well-nourished, well-appearing male in mild distress. HEENT: Head normocephalic, atraumatic, EOMI, pupils reactive, face symmetric, moist mucous membranes NECK: Supple, full range of motion CARDIOVASCULAR: Regular rate and rhythm without murmurs, rubs or gallops. No reproducible chest pain. RESPIRATORY: Breath sounds equal bilaterally, no wheezes rales or rhonchi. No tachypnea or accessory muscle use. ABDOMEN: Soft, nontender. Normoactive bowel sounds all 4 quadrants. No guarding or rebound, rigidity, no mass, no bruit or pulsatile mass. : No CVA tenderness EXTREMITIES: Normal range of motion, no clubbing or edema. Neurovascularly intact NEUROLOGICAL: Cranial nerves II through XII grossly intact. Moving all extremities SKIN: Warm, dry, no petechiae, no rashes or lesions. Initial Vital Signs Initial Vital Signs: Vital Signs Temperature 97.4 F L 10/04/22 11:02 Pulse Rate 76 10/04/22 11:02 Respiratory Rate 16 10/04/22 11:02 Blood Pressure 158/76 H 10/04/22 11:02 Pulse Oximetry 99 10/04/22 11:02 Oxygen Delivery Method Room Air 10/04/22 11:02 Course Orders Ordered: ED Orders 10/04/22 11:07 XR chest 1V Stat 10/04/22 11:08 US abdomen limited Stat 10/04/22 11:16 Complete Blood Count AUTO DIFF Stat Comprehensive Metabolic Panel Stat Lipase Stat Magnesium Stat PTT Partial Thromboplastin Javy Stat Prothrombin Time INR Stat Troponin & CK Cardiac Panel Stat 10/04/22 13:19 EKG-12 Lead Stat EKG-12 Lead Stat 10/04/22 13:30 Trop I [Troponin I] Stat Discontinued Medications Aspirin (Aspirin 81 Mg Chew Tab) 324 mg PO NOW ONE Stop: 10/04/22 11:08 Last Admin: 10/04/22 13:28 Dose: Not Given Documented By: KOSTA Aspirin (Aspirin 81 Mg Chew Tab) 324 mg PO NOW ONE Stop: 10/04/22 13:21 Last Admin: 10/04/22 13:33 Dose: 324 mg Documented By: KOSTA Ketorolac Tromethamine (Ketorolac 30 Mg/Ml Vial) 15 mg IV NOW ONE Stop: 10/04/22 11:09 Last Admin: 10/04/22 11:23 Dose: Not Given Documented By: CECIL Metoprolol Succinate (Metoprolol Er 50 Mg Tablet) 50 mg PO NOW ONE Stop: 10/04/22 13:42 Last Admin: 10/04/22 14:25 Dose: 50 mg Documented By: KOSTA(2) Nitroglycerin (Nitroglycerin 0.4 Mg Sl Tab) 0.4 mg SL [id number] PRN PRN Reason: Chest Pain Vital Signs Vital signs: Vital Signs - 8 hr 10/04/22 11:02 10/04/22 14:25 10/04/22 11:05 Temperature 97.4 F L Pulse Rate 76 55 L Respiratory Rate 16 Blood Pressure 158/76 H 108/60 158/76 H Pulse Oximetry 99 Oxygen Delivery Method Room Air 10/04/22 11:05 10/04/22 11:30 10/04/22 12:18 Temperature Pulse Rate 69 59 L Respiratory Rate 16 Blood Pressure 118/58 L Pulse Oximetry 100 98 Oxygen Delivery Method 10/04/22 12:18 10/04/22 12:30 10/04/22 13:00 Temperature Pulse Rate 57 L 58 L 63 Respiratory Rate 21 16 19 Blood Pressure Pulse Oximetry 99 98 98 Oxygen Delivery Method 10/04/22 13:30 10/04/22 13:31 10/04/22 13:31 Temperature Pulse Rate 54 L 57 L Respiratory Rate 20 16 Blood Pressure 134/64 Pulse Oximetry 98 97 Oxygen Delivery Method 10/04/22 13:35 10/04/22 13:35 10/04/22 14:00 Temperature Pulse Rate 62 Respiratory Rate 21 Blood Pressure 141/67 H 108/60 Pulse Oximetry 99 Oxygen Delivery Method 10/04/22 14:00 10/04/22 14:30 10/04/22 14:30 Temperature Pulse Rate 52 L 51 L Respiratory Rate 18 16 Blood Pressure 124/58 L Pulse Oximetry 97 97 Oxygen Delivery Method 10/04/22 15:00 10/04/22 15:00 10/04/22 15:49 Temperature Pulse Rate 52 L 56 L Respiratory Rate 14 18 Blood Pressure 115/60 Pulse Oximetry 99 97 Oxygen Delivery Method Room Air MDM - Chest Pain Lab Data 10/04/22 11:16 10/04/22 11:16 Labs: Lab Results 10/04/22 10/04/22 10/04/22 Range/Units 11:16 11:16 11:16 WBC 6.7 (4.5-11.0) X10^3/uL RBC 4.47 L (4.5-5.9) X10^6/uL Hgb 13.8 (13.5-17.5) g/dL Hct 40.3 L (41-53) % MCV 90.1 (80-100) fL MCH 30.9 (26-34) PG MCHC 34.3 (30-36) % RDW 12.8 (11.6-14.8) % Plt Count 183 (150-400) X10^3/uL Neut % (Auto) 65.0 (50-75) % Lymph % (Auto) 24.3 L (25-40) % [place] % (Auto) 8.3 (3-14) % Eos % (Auto) 1.9 L (2-4) % Baso % (Auto) 0.5 (0-2) % Neut # (Auto) 4300 (3211-2210) /uL Lymph # (Auto) 1600 (6710-0272) /uL [place] # (Auto) 600 (0-900) /uL Eos # (Auto) 100 (0-450) /uL Baso # (Auto) 0 (0-100) /uL PT 10.7 (10.1-12.7) SECONDS INR 0.9 (0.9-1.3) APTT 31 (26-36) SECONDS Sodium 136 L (137-145) mmol/L Potassium 4.3 (3.4-5.1) mmol/L Chloride 99 (98-107) mmol/L Carbon Dioxide 31 (22-32) mmol/L BUN 21 H (9-20) mg/dL Creatinine 1.24 (0.66-1.25) mg/dL Estimated GFR > 60 (>60) mL/min BUN/Creatinine Ratio 16.9 (6-22) Glucose 118 H (80-110) mg/dL Calcium 10.2 (8.4-10.2) mg/dL Magnesium 2.2 (1.6-2.3) mg/dL Total Bilirubin 0.5 (0.2-1.3) mg/dL AST 45 (17-59) IU/L ALT 46 (<50) IU/L Alkaline Phosphatase 52 (38-126) U/L Total Creatine Kinase 277 H (55-170) U/L CK-MB (CK-2) 5.40 H (<2.37) ng/mL CK-MB (CK-2) Rel Index 1.9 (1.5-5.0) % Troponin I < 0.012 (0.01-0.034) ng/mL Total Protein 7.9 (6.3-8.2) g/dL Albumin 4.7 (3.5-5.0) g/dL Globulin 3.2 (1.7-4.1) g/dL Albumin/Globulin Ratio 1.5 (1.0-2.8) Lipase 87 (23-300) U/L 10/04/22 Range/Units 13:30 WBC (4.5-11.0) X10^3/uL RBC (4.5-5.9) X10^6/uL Hgb (13.5-17.5) g/dL Hct (41-53) % MCV (80-100) fL MCH (26-34) PG MCHC (30-36) % RDW (11.6-14.8) % Plt Count (150-400) X10^3/uL Neut % (Auto) (50-75) % Lymph % (Auto) (25-40) % [place] % (Auto) (3-14) % Eos % (Auto) (2-4) % Baso % (Auto) (0-2) % Neut # (Auto) (8867-9712) /uL Lymph # (Auto) (9604-0375) /uL [place] # (Auto) (0-900) /uL Eos # (Auto) (0-450) /uL Baso # (Auto) (0-100) /uL PT (10.1-12.7) SECONDS INR (0.9-1.3) APTT (26-36) SECONDS Sodium (137-145) mmol/L Potassium (3.4-5.1) mmol/L Chloride (98-107) mmol/L Carbon Dioxide (22-32) mmol/L BUN (9-20) mg/dL Creatinine (0.66-1.25) mg/dL Estimated GFR (>60) mL/min BUN/Creatinine Ratio (6-22) Glucose (80-110) mg/dL Calcium (8.4-10.2) mg/dL Magnesium (1.6-2.3) mg/dL Total Bilirubin (0.2-1.3) mg/dL AST (17-59) IU/L ALT (<50) IU/L Alkaline Phosphatase (38-126) U/L Total Creatine Kinase (55-170) U/L CK-MB (CK-2) (<2.37) ng/mL CK-MB (CK-2) Rel Index (1.5-5.0) % Troponin I < 0.012 (0.01-0.034) ng/mL Total Protein (6.3-8.2) g/dL Albumin (3.5-5.0) g/dL Globulin (1.7-4.1) g/dL Albumin/Globulin Ratio (1.0-2.8) Lipase (23-300) U/L Imaging Data Chest x-ray: Radiologist's Impression: [place] [id number] [place] [id number] XRay Report Signed Patient: Froy Scanlon MR#: [id number] : 1945 Acct:[id number] Age/Sex: 76 / M Date of Service: 10/04/22 Loc: ED Accession Number: [id number] ?? Procedure: XR chest 1V Ordering Provider: Claribel Curtis D.O. PROCEDURE:? XR CHEST 1V ? INDICATIONS:? chest pain ? TECHNIQUE:? One view of the chest was acquired.? ? COMPARISON:? [facility], CR, XR CHEST 1V, 03/14/2022, 14:41. ? FINDINGS:? ? Surgical changes and devices:? None.? ? Lungs and pleura:? Lungs are clear.? No pleural effusions or pneumothorax.? ? Mediastinum:? Mediastinal contours appear normal.? Heart size is normal.? ? Bones and chest wall:? No suspicious bony lesions.? Overlying soft tissues appear unremarkable.? ? IMPRESSION:? No evidence acute pulmonary process. ? ? ? Dictated by: Jake Lni M.D. on 10/04/2022 at 11:36 ? ? Approved by: Jake Lin M.D. on 10/04/2022 at 11:36?? ECG Data Attestation: I personally reviewed and interpreted this ECG as follows: Prior ECG tracings: available for review Interpretation: Sinus bradycardia rate of 59 GA 164 QRS of 96 and QTC of 437. Patient's only changes T-wave is inverted in V1 was little bit more upright on prior EKG from 09/04/2022 which patient provided from [facility]. Sinus bradycardia rate of 57 GA 160 QRS of 98 QTC 445. No acute ST changes appreciated. No dynamic changes. MDM Narrative Medical decision making narrative: This is a 76-year-old male with known coronary artery disease who presents with intermittent chest discomfort not clearly exacerbated or worsened with exertion. Patient's initial workup including chest x-ray and EKG do not show clear changes, labs including CBC, CMP and troponin show sodium 136 BUN 21 glucose of 118, renal functions normal, CK-MB is elevated 5.4 CK index is 1.9 with a troponin initially negative. EKG and troponin are repeated is negative no dynamic changes. Patient notes his max chest pain was 5/10 today unresolved here with arrival. Patient case was discussed with hospitalist, Dr. Angulo for stress testing. We have stress testing available Saturday there are no additional test available tomorrow. Spoke with his cardiology team, Dr. Cheek, we discussed return to get a stress test locally but will be available until Saturday. This would be everyone's preference but isn't available. Dr. Cheek will order as an outpatient, they do recommend adding nitrates sublingual to his current medications we reviewed all of these. Patient is comfortable and agreeable with this plan and does not wish to stay throughout the weekend. Discussed strict return precautions and patient to picker and sorter load and unload nitro SL today. Discharge Plan Departure Patient Disposition: Home Clinical Impression: Chest pain Instructions: DI for Chest Pain Activity Restrictions/Additional Instructions: Follow up with your cardiology team. They should be reaching out to set up a stress test. Continue home medications as prescribed. You may take nitro sublingual 1 every 5 minutes for chest pain. If you require more than 2 or 3 nitro or your chest pain is persisting please return to the ER. Prescription sent to [email or web address] in [place]. Please return for new or worsening chest pain, shortness of breath, lightheadedness or passing out, if you require multiple doses of sublingual nitro, new swelling of the extremities or other new or concerning changes. Prescriptions: New nitroglycerin 0.4 mg tablet, sublingual 0.4 mg sublingual Q5-15M PRN (Reason: chest pain) Qty: 10 0RF Rx Instructions: do not exceed 3 doses per episode No Action metformin [Glucophage XR] 500 MG tablet extended release 24 hr 500 mg PO BIDAC Qty: 0 [DHEA] 50 mg PO QDAY Qty: 0 metoprolol succinate 50 MG tablet extended release 24 hr 50 mg PO BID Qty: 0 [PREGNENOLONE] 100 mg PO QDAY Qty: 0 gabapentin [Neurontin] 300 MG capsule 600 mg PO BID Qty: 0 lutein-zeaxanthin 1 EACH capsule 1 cap PO QDAY Qty: 0 [PHOSPHATIDYL SERINE] 100 mg PO HS Qty: 0 [ULTRA VITAMIN K] 1 PO QDAY Qty: 0 [VINPOCETINE] 1 tab PO HS Qty: 0 dofetilide 250 MCG capsule 500 mcg PO BID Qty: 0 simvastatin 20 MG tablet 20 mg PO BEDTIME Qty: 0 lisinopril 30 mg Tablet 30 mg PO DAILY Aspirin Low Dose tablet 81 mg PO DAILY levothyroxine 75 mcg Capsule 75 mcg PO BID Referrals: Gertrude Finney MD [Primary Care Provider] - Stand Alone Forms: Patient Portal/API
[2022-10-04] MEDS: ASPIRIN 81 MG CHEW TAB 324 MG PO (13:33)
[2022-10-04 14:03] LABS: Troponin I < 0.012 ng/mL (0.01-0.034)
--- NOTE | 2022-10-04 14:24 | PC.NURSE ---
Pts HR 53 BP 108/systolic. Order for Metoprolol 50mg. Vitals outside of admin parameters. Spoke to Dr Curtis. This is pt's home med and it is to be given.
[2022-10-04] MEDS: METOPROLOL ER 50 MG TABLET PO (14:25)
== END 2022-10-04 15:50 | disposition home or self-care (01) ==
PROVIDERS: Emergency Provider Emergency Medicine; Family Provider Internal Medicine; PCP Internal Medicine
DX: R07.9 Chest pain, unspecified (principal); R00.1 Bradycardia, unspecified; I25.10 Atherosclerotic heart disease of native coronary artery without angina pectoris
CPT/HCPCS: 36415; 71045; 76705; 80053; 82550; 82553; 83690; 83735; 84484; 85025; 85610; 85730; 93005; 99284

== ENCOUNTER 2023-07-01 10:17 | Emergency (ER) | payer MEDICARE, OTHER, SELFPAY ==
[2023-07-01] VITALS (15 sets, daily range): BP systolic 112–147; BP diastolic 71–88; PULSE 101–109; RESP 14–24; TEMP 36.4; O2SAT 98–100; BMI 29.4
--- NOTE | 2023-07-01 10:22 | DI.RAD.S_ITS ---
PROCEDURE: XR CHEST 1V INDICATIONS: chest pain TECHNIQUE: One view of the chest was acquired. COMPARISON: [facility], CR, XR CHEST 1V, 03/14/2022, 14:41. [facility], CR, XR CHEST 1V, 10/04/2022, 11:07. FINDINGS: Surgical changes and devices: None. Lungs and pleura: An incomplete inspiratory result is noted, causing a crowded appearance to the lung markings. No focal infiltrates are seen. No pneumothorax or significant pleural effusions are seen. Mediastinum: Mediastinal contours appear normal. Heart size is normal. Bones and chest wall: No suspicious bony lesions. Age-appropriate bony degenerative changes are seen. Overlying soft tissues appear unremarkable. IMPRESSION: Low lung volumes, without an acute abnormality seen by plain film. Dictated by: Moiz Cruz M.D. on 07/01/2023 at 9:41 Approved by: Moiz Cruz M.D. on 07/01/2023 at 9:41
[2023-07-01 10:50] LABS: Add Manual Diff / Slide Review NO; Basophils Absolute Auto 0 /uL (0-100); Basophils Percent Auto 0.6 % (0-2); Eosinophils Absolute Auto 200 /uL (0-450); Eosinophils Percent Auto 2.1 % (2-4); Hematocrit 41.1 % (41-53); Lymphocytes Absolute Auto 2000 /uL (1100-4500); Lymphocytes Percent Auto 25.7 % (25-40); Mean Corpuscular HGB Conc 34.1 % (30-36); Mean Corpuscular Hemoglobin 30.3 PG (26-34); Mean Corpuscular Volume 88.8 fL (80-100); Monocytes Absolute Auto 800 /uL (0-900); Monocytes Percent Auto 10.7 % (3-14); Neutrophils Absolute Auto 4700 /uL (1500-7000); Neutrophils Percent Auto 60.9 % (50-75); Platelet Count 187 X10^3/uL (150-400); Red Blood Cell Count 4.62 X10^6/uL (4.5-5.9); Red Cell Distribution Width 12.9 % (11.6-14.8); White Blood Cell Count 7.7 X10^3/uL (4.5-11.0)
[2023-07-01 10:53] LABS: PTT Partial Thromboplastin Tim 29 SECONDS (25.1-36.5)
[2023-07-01 10:54] LABS: Alanine Aminotransferase 45 IU/L (<50); Albumin 4.3 g/dL (3.5-5.0); Albumin Globulin Ratio 1.4 (1.0-2.8); Alkaline Phosphatase 60 U/L (38-126); Aspartate Aminotransferase 35 IU/L (17-59); BUN Creatinine Ratio 22.2 (6-22); Bilirubin Total 0.6 mg/dL (0.2-1.3); Blood Urea Nitrogen 26 mg/dL (9-20); Calcium 10.3 mg/dL (8.4-10.2); Carbon Dioxide 27 mmol/L (22-32); Chloride 99 mmol/L (98-107); Creatine Kinase 134 U/L (55-170); Estimated Glomerular Filt Rate > 60 mL/min (>60); Globulin 3.1 g/dL (1.7-4.1); Glucose 127 mg/dL (80-110); HEMOLYSIS < 15 (0-50); Lipase 70 U/L (23-300); Magnesium 2.2 mg/dL (1.6-2.3); Potassium 4.4 mmol/L (3.4-5.1); Sodium 134 mmol/L (137-145); Total Protein 7.4 g/dL (6.3-8.2)
[2023-07-01 11:06] LABS: Troponin I < 0.012 ng/mL (0.01-0.034)
--- NOTE | 2023-07-01 11:28 | ED_ITS ---
HPI - Arrhythmia/Palpitations General Chief Complaint: Arrhythmia/Palpitations Stated Complaint: tachi arythmia Time Seen by Provider: 07/01/23 10:24 Source: patient Mode of arrival: Ambulatory History of Present Illness HPI narrative: Patient is 77-year-old male history of paroxysmal atrial flutter he has been cardioverted greater than 30 times not continuously taking Eliquis on dofetilide presents today with elevated heart rate. He is reports that for the last 4 days he has had a steady heart rate of 108-109. It is unchanged. He is followed by [facility] cardiology, his health concierge previously gave him prescription for metoprolol to take when his heart rate elevated. He took 4 doses yesterday without any change. Today he came here for evaluation. He has not dizzy or lightheaded. But he says his normal heart rate is in the 60s. He feels just an elevated heart rate. He has an bottle of Eliquis at home that is over 6 years old. He says he has been very well controlled and in sinus rhythm on dofetilide for a long time. Related Data Home Medications Medication Instructions Recorded Confirmed metformin 500 mg tablet,extended 500 mg PO BIDAC ##0 09/27/16 07/01/23 release 24 hr (Glucophage XR) [DHEA] 50 mg PO QDAY ##0 01/10/17 05/04/20 [PHOSPHATIDYL SERINE] 100 mg PO HS ##0 01/10/17 05/04/20 [PREGNENOLONE] 100 mg PO QDAY ##0 01/10/17 05/04/20 [ULTRA VITAMIN K] 1 PO QDAY ##0 01/10/17 [VINPOCETINE] 1 tab PO HS ##0 01/10/17 05/04/20 gabapentin 300 mg capsule 900 mg PO BID ##0 01/10/17 07/01/23 (Neurontin) lutein 25 mg-zeaxanthin 5 mg 1 cap PO QDAY ##0 01/10/17 05/18/20 capsule metoprolol succinate 50 mg 50 mg PO BID ##0 01/10/17 07/01/23 tablet,extended release 24 hr dofetilide 250 mcg capsule 500 mcg PO BID ##0 06/02/17 07/01/23 simvastatin 20 mg tablet 20 mg PO BEDTIME ##0 06/02/17 07/01/23 lisinopril 30 mg tablet 30 mg PO BEDTIME 05/04/20 07/01/23 aspirin 81 mg tablet 81 mg PO DAILY 07/01/23 07/01/23 thyroid (pork) 120 mg tablet (Niva 120 mg PO BID 07/01/23 07/01/23 Thyroid) zolpidem 10 mg tablet 10 mg PO ONCE PM PRN Insomnia 07/01/23 07/01/23 Previous Rx's Medication Instructions Recorded nitroglycerin 0.4 mg sublingual 0.4 mg sublingual Q5-15M PRN chest 10/04/22 tablet pain #10 tabs apixaban 5 mg tablet (Eliquis) 5 mg PO BID #60 tabs 07/01/23 Allergies Allergy/AdvReac Type Severity Reaction Status Date / Time No Known Drug Allergies Allergy Verified 07/01/23 12:01 Patient History Social History household members: spouse Smoking Status: Former smoker alcohol intake: current Smoking Status: Former smoker alcohol intake frequency: a few times a week Substance Use Type: does not use Exam Initial Vital Signs Initial Vital Signs: Vital Signs Pulse Rate 109 H 07/01/23 10:23 Respiratory Rate 24 07/01/23 10:23 Pulse Oximetry 99 07/01/23 10:23 Course Orders Ordered: ED Orders 07/01/23 10:22 XR chest 1V Stat 07/01/23 10:29 Complete Blood Count AUTO DIFF Stat Comprehensive Metabolic Panel Stat Lipase Stat Magnesium Stat PTT Partial Thromboplastin Javy Stat Prothrombin Time INR Stat Troponin & CK Cardiac Panel Stat EKG-12 Lead Stat 07/01/23 11:53 EKG-12 Lead Stat 07/01/23 12:44 EKG-12 Lead Stat Discontinued Medications Apixaban (Apixaban 5 Mg Tablet) 5 mg PO NOW ONE Stop: 07/01/23 12:04 Last Admin: 07/01/23 12:10 Dose: 5 mg Documented By: CECIL Diltiazem HCl (Diltiazem 5 Mg/Ml Sdv) 10 mg IV NOW ONE Stop: 07/01/23 12:03 Last Admin: 07/01/23 12:12 Dose: 10 mg Documented By: CECIL Vital Signs Vital signs: Vital Signs - 8 hr 07/01/23 10:23 07/01/23 10:26 07/01/23 10:26 Temperature Pulse Rate 109 H 108 H Respiratory Rate 24 22 Blood Pressure 147/84 H Pulse Oximetry 99 99 Oxygen Delivery Method Room Air 07/01/23 10:29 07/01/23 10:30 07/01/23 10:30 Temperature 97.6 F Pulse Rate 109 H 108 H Respiratory Rate 18 15 Blood Pressure 147/84 H 142/84 H Pulse Oximetry 100 100 Oxygen Delivery Method Room Air Room Air 07/01/23 11:00 07/01/23 11:00 07/01/23 11:30 Temperature Pulse Rate 109 H Respiratory Rate Blood Pressure 127/72 120/75 Pulse Oximetry 99 Oxygen Delivery Method 07/01/23 11:30 07/01/23 12:00 07/01/23 12:00 Temperature Pulse Rate 109 H 108 H Respiratory Rate 19 Blood Pressure 120/71 Pulse Oximetry 99 99 Oxygen Delivery Method 07/01/23 12:10 07/01/23 12:10 07/01/23 12:12 Temperature Pulse Rate 109 H 108 H Respiratory Rate 18 Blood Pressure 122/75 122/75 Pulse Oximetry 98 Oxygen Delivery Method 07/01/23 12:13 07/01/23 12:15 07/01/23 12:15 Temperature Pulse Rate 108 H 107 H Respiratory Rate 14 19 Blood Pressure 122/75 135/88 Pulse Oximetry 99 Oxygen Delivery Method Room Air 07/01/23 12:30 07/01/23 12:30 07/01/23 12:45 Temperature Pulse Rate 106 H Respiratory Rate Blood Pressure 114/73 112/75 Pulse Oximetry Oxygen Delivery Method 07/01/23 12:45 07/01/23 13:00 07/01/23 13:00 Temperature Pulse Rate 101 H 106 H Respiratory Rate 14 16 Blood Pressure 120/81 Pulse Oximetry Oxygen Delivery Method 07/01/23 13:05 07/01/23 13:05 Temperature Pulse Rate 106 H Respiratory Rate 16 Blood Pressure 116/81 Pulse Oximetry Oxygen Delivery Method MDM - Arrhythmia/Palpitations Lab Data 07/01/23 10:29 07/01/23 10:29 Labs: Lab Results 07/01/23 Range/Units 10:29 WBC 7.7 (4.5-11.0) X10^3/uL RBC 4.62 (4.5-5.9) X10^6/uL Hgb 14.0 (13.5-17.5) g/dL Hct 41.1 (41-53) % MCV 88.8 (80-100) fL MCH 30.3 (26-34) PG MCHC 34.1 (30-36) % RDW 12.9 (11.6-14.8) % Plt Count 187 (150-400) X10^3/uL Neut % (Auto) 60.9 (50-75) % Lymph % (Auto) 25.7 (25-40) % [place] % (Auto) 10.7 (3-14) % Eos % (Auto) 2.1 (2-4) % Baso % (Auto) 0.6 (0-2) % Neut # (Auto) 4700 (1049-7480) /uL Lymph # (Auto) 2000 (7954-2438) /uL [place] # (Auto) 800 (0-900) /uL Eos # (Auto) 200 (0-450) /uL Baso # (Auto) 0 (0-100) /uL PT 11.0 (9.4-12.5) SECONDS INR 1.0 (0.9-1.3) APTT 29 (25.1-36.5) SECONDS Sodium 134 L (137-145) mmol/L Potassium 4.4 (3.4-5.1) mmol/L Chloride 99 (98-107) mmol/L Carbon Dioxide 27 (22-32) mmol/L BUN 26 H (9-20) mg/dL Creatinine 1.17 (0.66-1.25) mg/dL Estimated GFR > 60 (>60) mL/min BUN/Creatinine Ratio 22.2 H (6-22) Glucose 127 H (80-110) mg/dL Calcium 10.3 H (8.4-10.2) mg/dL Magnesium 2.2 (1.6-2.3) mg/dL Total Bilirubin 0.6 (0.2-1.3) mg/dL AST 35 (17-59) IU/L ALT 45 (<50) IU/L Alkaline Phosphatase 60 (38-126) U/L Total Creatine Kinase 134 (55-170) U/L Troponin I < 0.012 (0.01-0.034) ng/mL Total Protein 7.4 (6.3-8.2) g/dL Albumin 4.3 (3.5-5.0) g/dL Globulin 3.1 (1.7-4.1) g/dL Albumin/Globulin Ratio 1.4 (1.0-2.8) Lipase 70 (23-300) U/L Imaging Data Chest x-ray: Radiologist's Impresson: PROCEDURE: XR CHEST 1V INDICATIONS: chest pain TECHNIQUE: One view of the chest was acquired. COMPARISON: [facility], CR, XR CHEST 1V, 03/14/2022, 14:41. [facility], CR, XR CHEST 1V, 10/04/2022, 11:07. FINDINGS: Surgical changes and devices: None. Lungs and pleura: An incomplete inspiratory result is noted, causing a crowded appearance to the lung markings. No focal infiltrates are seen. No pneumothorax or significant pleural effusions are seen. Mediastinum: Mediastinal contours appear normal. Heart size is normal. Bones and chest wall: No suspicious bony lesions. Age-appropriate bony degenerative changes are seen. Overlying soft tissues appear unremarkable. IMPRESSION: Low lung volumes, without an acute abnormality seen by plain film. Dictated by: Moiz Cruz M.D. on 07/01/2023 at 9:41 ECG Data Interpretation: EKG 1. Atrial flutter 2-[address] changes do not agree with sinus rhythm rate EKG 2. Atrial flutter rate 109 similar to prior EKG 3. Atrial flutter rate 80 MDM Narrative Medical decision making narrative: Patient is 77-year-old male history of paroxysmal atrial flutter multiple cardioversions on dofetilide noncompliant with Eliquis presents today with ongoing elevated heart rate. He is out of the window for cardioversion symptoms have been ongoing for about 4 days and not currently taking Eliquis. Heart rate seems to be control he is minimally symptomatic. Heart rate very consistently no weight 08/01/2008 in the emergency department. I do suspect that there is an atrial flutter with a 2-1 block on his EKGs. He was given a small dose Cardizem which he actually did respond to in heart rate slowed into the 50s and was very clear atrial flutter on the EKGs. He is closely followed with health concierge at [facility]. At this time recommend he follow up with Cardiology in regards to medication changes. Blood work has been reviewed no clinical significant abnormalities Chest x-ray reviewed no clinical significance Patient is given copies of his EKGs Discharge Plan Departure Patient Disposition: Home Clinical Impression: Atrial flutter Instructions: DI for Atrial Flutter Activity Restrictions/Additional Instructions: *You have been diagnosed with atrial flutter *What to do: At this time please call your health concierge tomorrow may or may not need medication adjustment. You did not respond to Cardizem *Continue to take medications as directed Eliquis 5 mg twice a day--> [facility] *Follow up with your primary care provider in 2-3 days or call [phone] *Return to ER if you should have increasing palpitations dizziness chest pain shortness of breath [or] any new, worsening or concerning symptoms Prescriptions: New Eliquis 5 mg tablet 5 mg PO BID Qty: 60 0RF No Action metformin [Glucophage XR] 500 MG tablet extended release 24 hr 500 mg PO BIDAC Qty: 0 [DHEA] 50 mg PO QDAY Qty: 0 metoprolol succinate 50 MG tablet extended release 24 hr 50 mg PO BID Qty: 0 [PREGNENOLONE] 100 mg PO QDAY Qty: 0 gabapentin [Neurontin] 300 MG capsule 900 mg PO BID Qty: 0 lutein-zeaxanthin 1 EACH capsule 1 cap PO QDAY Qty: 0 [PHOSPHATIDYL SERINE] 100 mg PO HS Qty: 0 [ULTRA VITAMIN K] 1 PO QDAY Qty: 0 [VINPOCETINE] 1 tab PO HS Qty: 0 dofetilide 250 MCG capsule 500 mcg PO BID Qty: 0 simvastatin 20 MG tablet 20 mg PO BEDTIME Qty: 0 lisinopril 30 mg Tablet 30 mg PO BEDTIME nitroglycerin 0.4 mg tablet, sublingual 0.4 mg sublingual Q5-15M PRN (Reason: chest pain) Qty: 10 0RF Rx Instructions: do not exceed 3 doses per episode Adult Low Dose Aspirin 81 mg Tablet 81 mg PO DAILY thyroid (pork) [Niva Thyroid] 120 mg tablet 120 mg PO BID zolpidem 10 mg tablet 10 mg PO ONCE PM PRN (Reason: Insomnia) Referrals: Gertrude Garcia MD [Primary Care Provider] - Stand Alone Forms: Patient Portal/API
[2023-07-01] MEDS: APIXABAN 5 MG TABLET PO (12:10)
[2023-07-01] MEDS: dilTIAZem 5 MG/ML SDV 10 MG IV (12:12)
== END 2023-07-01 13:18 | disposition home or self-care (01) ==
PROVIDERS: Emergency Provider Emergency Medicine; Family Provider Internal Medicine; PCP Internal Medicine
DX: I48.92 Unspecified atrial flutter (principal)
CPT/HCPCS: 36415; 71045; 80053; 82550; 83690; 83735; 84484; 85025; 85610; 85730; 93005; 96374; 99284

== ENCOUNTER 2023-08-29 23:35 | Emergency (ER) | payer MEDICARE, OTHER, SELFPAY ==
[2023-08-29 23:44] VITALS: BP 98/68; PULSE 63; RESP 18; TEMP 36.6; O2SAT 97; BMI 29.5
[2023-08-29 23:50] VITALS: PULSE 75; O2SAT 97
[2023-08-30] VITALS (9 sets, daily range): BP systolic 96–153; BP diastolic 58–73; PULSE 54–88; RESP 14–27; O2SAT 93–98
--- NOTE | 2023-08-30 00:02 | ED.ARRPALP ---
HPI - Arrhythmia/Palpitations General Chief Complaint: Arrhythmia/Palpitations Stated Complaint: pvc Time Seen by Provider: 08/29/23 23:50 Source: patient Mode of arrival: Ambulatory History of Present Illness HPI narrative: 77-year-old male. History of atrial fibrillation. Also has a history of frequent PVCs. Is on multiple medications for these who is here for evaluation of increasing frequency of PVCs over the past several hours/day. No lightheadedness. No chest pain. No shortness of breath. He is taking all of his medications as directed. He does take metoprolol 2 times a day. Related Data Home Medications Medication Instructions Recorded Confirmed metformin 500 mg tablet,extended 500 mg PO BIDAC ##0 09/27/16 07/01/23 release 24 hr (Glucophage XR) [DHEA] 50 mg PO QDAY ##0 01/10/17 05/04/20 [PHOSPHATIDYL SERINE] 100 mg PO HS ##0 01/10/17 05/04/20 [PREGNENOLONE] 100 mg PO QDAY ##0 01/10/17 05/04/20 [ULTRA VITAMIN K] 1 PO QDAY ##0 01/10/17 [VINPOCETINE] 1 tab PO HS ##0 01/10/17 05/04/20 gabapentin 300 mg capsule 900 mg PO BID ##0 01/10/17 07/01/23 (Neurontin) lutein 25 mg-zeaxanthin 5 mg 1 cap PO QDAY ##0 01/10/17 05/18/20 capsule metoprolol succinate 50 mg 50 mg PO BID ##0 01/10/17 07/01/23 tablet,extended release 24 hr dofetilide 250 mcg capsule 500 mcg PO BID ##0 06/02/17 07/01/23 simvastatin 20 mg tablet 20 mg PO BEDTIME ##0 06/02/17 07/01/23 lisinopril 30 mg tablet 30 mg PO BEDTIME 05/04/20 07/01/23 aspirin 81 mg tablet 81 mg PO DAILY 07/01/23 07/01/23 thyroid (pork) 120 mg tablet (Niva 120 mg PO BID 07/01/23 07/01/23 Thyroid) zolpidem 10 mg tablet 10 mg PO ONCE PM PRN Insomnia 07/01/23 07/01/23 Previous Rx's Medication Instructions Recorded nitroglycerin 0.4 mg sublingual 0.4 mg sublingual Q5-15M PRN chest 10/04/22 tablet pain #10 tabs apixaban 5 mg tablet (Eliquis) 5 mg PO BID #60 tabs 07/01/23 metoprolol succinate 25 mg 25 mg PO DAILY PRN Palpitations 08/30/23 tablet,extended release 24 hr #30 tabs Allergies Allergy/AdvReac Type Severity Reaction Status Date / Time No Known Drug Allergies Allergy Verified 07/01/23 12:01 Review of Systems Constitutional Constitutional: Reports system reviewed and no additional complaints, except as documented Cardiovascular Cardiovascular: Reports system reviewed and no additional complaints, except as documented Respiratory Respiratory: Reports system reviewed and no additional complaints, except as documented Gastrointestinal Gastrointestinal: Reports system reviewed and no additional complaints, except as documented Integumentary/Breasts Skin/Breast: Reports system reviewed and no additional complaints, except as documented Neurologic Neurologic: Reports system reviewed and no additional complaints, except as documented Hematologic/Lymphatic On Anticoagulants: Yes Patient History Social History household members: spouse Smoking Status: Former smoker alcohol intake: current Smoking Status: Former smoker alcohol intake frequency: a few times a week Substance Use Type: does not use Exam Initial Vital Signs Initial Vital Signs: Vital Signs Temperature 97.8 F 08/29/23 23:44 Pulse Rate 63 08/29/23 23:44 Respiratory Rate 18 08/29/23 23:44 Blood Pressure 98/68 08/29/23 23:44 Pulse Oximetry 97 08/29/23 23:44 Oxygen Delivery Method Room Air 08/29/23 23:44 Const General: cooperative, comfortable and No ill appearing [facility] Head: normal to inspection Resp Effort & Inspection: normal respiratory effort Auscultation: clear to auscultation bilaterally Cardio Rate: regular rate Rhythm: regular rhythm Skin General: no rashes or lesions noted Neuro General: patient alert, patient awake, patient oriented x3 and moves all extremities Course Orders Ordered: ED Orders 08/29/23 23:50 EKG-12 Lead Stat 08/30/23 00:50 Basic Metabolic Panel Stat Complete Blood Count AUTO DIFF Stat Magnesium Stat Discontinued Medications Metoprolol Succinate (Metoprolol Er 25 Mg Tablet) 25 mg PO NOW ONE Stop: 08/30/23 00:04 Last Admin: 08/30/23 00:35 Dose: 25 mg Documented By: STEPHANIE Vital Signs Vital signs: Vital Signs - 8 hr 08/29/23 23:44 08/29/23 23:50 08/30/23 00:00 Temperature 97.8 F Pulse Rate 63 75 79 Respiratory Rate 18 17 Blood Pressure 98/68 Pulse Oximetry 97 97 98 Oxygen Delivery Method Room Air 08/30/23 00:30 08/30/23 00:35 08/30/23 01:00 Temperature Pulse Rate 65 87 88 Respiratory Rate 14 27 H Blood Pressure 96/68 Pulse Oximetry 96 96 Oxygen Delivery Method 08/30/23 01:13 08/30/23 01:13 08/30/23 01:15 Temperature Pulse Rate 67 54 L Respiratory Rate 14 Blood Pressure 117/58 L 153/63 H Pulse Oximetry 94 Oxygen Delivery Method Room Air 08/30/23 01:30 08/30/23 01:31 08/30/23 01:31 Temperature Pulse Rate 58 L 68 Respiratory Rate 15 14 Blood Pressure 153/63 H Pulse Oximetry 93 94 Oxygen Delivery Method Room Air 08/30/23 02:00 08/30/23 02:00 Temperature Pulse Rate 56 L Respiratory Rate 23 Blood Pressure 145/73 H Pulse Oximetry 97 Oxygen Delivery Method Room Air MDM - Arrhythmia/Palpitations Lab Data Attestation: I reviewed the patient's lab results. 08/30/23 00:50 08/30/23 00:50 Labs: Lab Results 08/30/23 Range/Units 00:50 WBC 6.7 (4.5-11.0) X10^3/uL RBC 4.46 L (4.5-5.9) X10^6/uL Hgb 13.9 (13.5-17.5) g/dL Hct 40.2 L (41-53) % MCV 90.3 (80-100) fL MCH 31.1 (26-34) PG MCHC 34.4 (30-36) % RDW 13.6 (11.6-14.8) % Plt Count 171 (150-400) X10^3/uL Neut % (Auto) 60.7 (50-75) % Lymph % (Auto) 25.3 (25-40) % [place] % (Auto) 9.7 (3-14) % Eos % (Auto) 2.5 (2-4) % Baso % (Auto) 1.8 (0-2) % Neut # (Auto) 4100 (1483-7566) /uL Lymph # (Auto) 1700 (3486-0725) /uL [place] # (Auto) 700 (0-900) /uL Eos # (Auto) 200 (0-450) /uL Baso # (Auto) 100 (0-100) /uL Sodium 137 (137-145) mmol/L Potassium 4.5 (3.4-5.1) mmol/L Chloride 101 (98-107) mmol/L Carbon Dioxide 31 (22-32) mmol/L BUN 26 H (9-20) mg/dL Creatinine 1.45 H (0.66-1.25) mg/dL Estimated GFR 50 L (>60) mL/min BUN/Creatinine Ratio 17.9 (6-22) Glucose 116 H (80-110) mg/dL Calcium 10.9 H (8.4-10.2) mg/dL Magnesium 2.2 (1.6-2.3) mg/dL ECG Data Attestation: I personally reviewed and interpreted this ECG as follows: Interpretation: Sinus rhythm Ventricular rate is 78 Normal axis Normal QRS Normal QTC No ST T wave changes MDM Narrative Medical decision making narrative: Upon arrival patient was not having frequent PVCs. He has not in AFib. Not tachycardic. Labs are unremarkable. During his time here he did start to have more frequent PVCs and was also in an occasional bigeminy pattern. He did feel these PVCs but otherwise was asymptomatic. He was given 1 extra dose of his metoprolol. Heart rate did decrease some however seemed to tolerate this very well. Discussed PVCs. Will discharge home with a prescription for 25 mg metoprolol tablets that he can take as needed if he starts to have very frequent PVCs. I feel that his blood pressure and heart rate can support this. He was instructed that he may need to contact his director of business continuity if his symptoms persist. He was given return precautions. He expressed understanding and agreement. Discharge Plan Departure Patient Disposition: Home Clinical Impression: Frequent unifocal PVCs Instructions: Premature Ventricular Beats Activity Restrictions/Additional Instructions: Recommend that you continue with your current metoprolol regiment to include the 50 mg extended-release tablets in the morning and 50 mg in the evening. If you start to feel the PVCs happening more frequently you can do 1 extra dose of the 25 mg metoprolol that you were given a prescription for this evening. If this is not improving your symptoms I recommend that you talk with your director of business continuity as you may need more specific changes to your current medication regimen. Return to the emergency department for lightheadedness or if you ever pass out. Prescriptions: New metoprolol succinate 25 mg tablet extended release 24 hr 25 mg PO DAILY PRN (Reason: Palpitations) Qty: 30 2RF No Action metformin [Glucophage XR] 500 MG tablet extended release 24 hr 500 mg PO BIDAC Qty: 0 [DHEA] 50 mg PO QDAY Qty: 0 metoprolol succinate 50 MG tablet extended release 24 hr 50 mg PO BID Qty: 0 [PREGNENOLONE] 100 mg PO QDAY Qty: 0 gabapentin [Neurontin] 300 MG capsule 900 mg PO BID Qty: 0 lutein-zeaxanthin 1 EACH capsule 1 cap PO QDAY Qty: 0 [PHOSPHATIDYL SERINE] 100 mg PO HS Qty: 0 [ULTRA VITAMIN K] 1 PO QDAY Qty: 0 [VINPOCETINE] 1 tab PO HS Qty: 0 dofetilide 250 MCG capsule 500 mcg PO BID Qty: 0 simvastatin 20 MG tablet 20 mg PO BEDTIME Qty: 0 lisinopril 30 mg Tablet 30 mg PO BEDTIME nitroglycerin 0.4 mg tablet, sublingual 0.4 mg sublingual Q5-15M PRN (Reason: chest pain) Qty: 10 0RF Rx Instructions: do not exceed 3 doses per episode Adult Low Dose Aspirin 81 mg Tablet 81 mg PO DAILY thyroid (pork) [Niva Thyroid] 120 mg tablet 120 mg PO BID zolpidem 10 mg tablet 10 mg PO ONCE PM PRN (Reason: Insomnia) Eliquis 5 mg tablet 5 mg PO BID Qty: 60 0RF Referrals: Gertrude Garcia MD [Primary Care Provider] - Stand Alone Forms: Patient Portal/API
[2023-08-30] MEDS: METOPROLOL ER 25 MG TABLET PO (00:35)
[2023-08-30 01:06] LABS: Add Manual Diff / Slide Review NO; Basophils Absolute Auto 100 /uL (0-100); Basophils Percent Auto 1.8 % (0-2); Eosinophils Absolute Auto 200 /uL (0-450); Eosinophils Percent Auto 2.5 % (2-4); Hematocrit 40.2 % (41-53); Hemoglobin 13.9 g/dL (13.5-17.5); Lymphocytes Absolute Auto 1700 /uL (1100-4500); Lymphocytes Percent Auto 25.3 % (25-40); Mean Corpuscular HGB Conc 34.4 % (30-36); Mean Corpuscular Hemoglobin 31.1 PG (26-34); Mean Corpuscular Volume 90.3 fL (80-100); Monocytes Absolute Auto 700 /uL (0-900); Monocytes Percent Auto 9.7 % (3-14); Neutrophils Absolute Auto 4100 /uL (1500-7000); Neutrophils Percent Auto 60.7 % (50-75); Platelet Count 171 X10^3/uL (150-400); Red Blood Cell Count 4.46 X10^6/uL (4.5-5.9); Red Cell Distribution Width 13.6 % (11.6-14.8); White Blood Cell Count 6.7 X10^3/uL (4.5-11.0)
[2023-08-30 01:12] LABS: BUN Creatinine Ratio 17.9 (6-22); Blood Urea Nitrogen 26 mg/dL (9-20); Calcium 10.9 mg/dL (8.4-10.2); Carbon Dioxide 31 mmol/L (22-32); Chloride 101 mmol/L (98-107); Estimated Glomerular Filt Rate 50 mL/min (>60); Glucose 116 mg/dL (80-110); HEMOLYSIS < 15 (0-50); Magnesium 2.2 mg/dL (1.6-2.3); Potassium 4.5 mmol/L (3.4-5.1); Sodium 137 mmol/L (137-145)
--- NOTE | 2023-08-30 01:56 | PC.NURSE ---
MD Tierney at bedside.
== END 2023-08-30 02:18 | disposition home or self-care (01) ==
PROVIDERS: Emergency Provider Emergency Medicine; Family Provider Internal Medicine; PCP Internal Medicine
DX: I49.3 Ventricular premature depolarization (principal)
CPT/HCPCS: 80048; 83735; 85025; 93005; 99283; 99284

== ENCOUNTER 2023-09-21 11:02 | Inpatient (IN) | payer MEDICARE, OTHER, SELFPAY ==
[2023-09-21] VITALS (19 sets, daily range): BP systolic 119–174; BP diastolic 66–81; PULSE 80–112; RESP 9–30; TEMP 36.4–37.2; O2SAT 97–100; BMI 29.4; BMI 29.6
--- NOTE | 2023-09-21 11:25 | ED_ITS ---
HPI - GI Bleed General Chief complaint: GI Bleed Stated complaint: Weakness Time Seen by Provider: 09/21/23 11:06 Source: patient and EMS Mode of arrival: EMS History of Present Illness HPI Narrative: 77yoM with PMH a fib on dofetilide presents by EMS from home for dark tarry stools since today. Patient reports feeling rectal pressure in the middle of the night and had multiple bowel movements that he described as dark and tarry. He states that he felt like his heart beat was racing and took a single pill of Xarelto thinking that this was a cardiac event. Patient reports being placed on Xarelto last year after going into atrial fibrillation, but he has been off of Xarelto since cardioversion in July of 2023. Patient states that yesterday he did not eat or drink very much, but did have a dose of ibuprofen on an empty stomach as well as 2 IPAs at dinnertime. Related Data Home Medications Medication Instructions Recorded Confirmed [DHEA] 50 mg PO QDAY ##0 01/10/17 09/21/23 [PHOSPHATIDYL SERINE] 100 mg PO HS ##0 01/10/17 09/21/23 [PREGNENOLONE] 100 mg PO QDAY ##0 01/10/17 09/21/23 [ULTRA VITAMIN K] 1 tab PO QDAY ##0 01/10/17 09/21/23 [VINPOCETINE] 1 tab PO HS ##0 01/10/17 09/21/23 gabapentin 300 mg capsule 900 mg PO BID ##0 01/10/17 09/21/23 (Neurontin) lutein 25 mg-zeaxanthin 5 mg 1 cap PO QDAY ##0 01/10/17 09/21/23 capsule metoprolol succinate 50 mg 50 mg PO BID ##0 01/10/17 09/21/23 tablet,extended release 24 hr dofetilide 250 mcg capsule 500 mcg PO BID ##0 06/02/17 09/21/23 simvastatin 20 mg tablet 20 mg PO BEDTIME ##0 06/02/17 09/21/23 lisinopril 30 mg tablet 30 mg PO BEDTIME 05/04/20 09/21/23 aspirin 81 mg tablet 81 mg PO DAILY 07/01/23 09/21/23 thyroid (pork) 120 mg tablet (Niva 120 mg PO BID 07/01/23 09/21/23 Thyroid) zolpidem 10 mg tablet 10 mg PO ONCE PM PRN Insomnia 07/01/23 09/21/23 Previous Rx's Medication Instructions Recorded nitroglycerin 0.4 mg sublingual 0.4 mg sublingual Q5-15M PRN chest 10/04/22 tablet pain #10 tabs metoprolol succinate 25 mg 25 mg PO DAILY PRN Palpitations 08/30/23 tablet,extended release 24 hr #30 tabs Allergies Allergy/AdvReac Type Severity Reaction Status Date / Time No Known Drug Allergies Allergy Verified 07/01/23 12:01 Review of Systems Review of Systems Narrative: Negative except as noted above Patient History Social History household members: spouse Smoking Status: Former smoker alcohol intake: current Smoking Status: Former smoker alcohol intake frequency: a few times a week Substance Use Type: does not use Exam Initial Vital Signs Initial Vital Signs: Vital Signs Temperature 97.5 F L 09/21/23 11:10 Pulse Rate 88 09/21/23 11:10 Respiratory Rate 14 09/21/23 11:10 Blood Pressure 174/81 H 09/21/23 11:10 Pulse Oximetry 99 09/21/23 11:10 Oxygen Delivery Method Room Air 09/21/23 11:10 Const: Awake, alert, no acute distress, nontoxic appearing Cardiac: regular rate, regular rhythm RESP: unlabored, clear bilaterally, no wheezing GI: Soft, nontender, nondistended, no rebound, no guarding Rectal: Water Resource Consultant present, small non thrombosed hemorrhoid present, dark melanotic stool on digital exam Skin: Warm, Dry, intact, no rashes Neuro: AO x3, CN II-XII grossly intact, moves all extremities Course Orders Ordered: ED Orders 09/21/23 11:12 Complete Blood Count AUTO DIFF Stat Comprehensive Metabolic Panel Stat PTT Partial Thromboplastin Javy Stat Prothrombin Time INR Stat Type and Screen Stat 09/21/23 11:15 EKG-12 Lead Stat 09/21/23 11:36 CT abdomen pelvis w con Stat Acetaminophen (Acetaminophen 325 Mg Tablet) 650 mg PO Q6H PRN PRN Reason: Fever/Mild Pain (1-3) Atorvastatin Calcium (Atorvastatin 20 Mg Tablet) 10 mg PO BEDTIME ANDRÉS Gabapentin (Gabapentin 300 Mg Capsule) 900 mg PO BID ANDRÉS Sodium Chloride (Normal Saline 0.9%) 1,000 mls @ 100 mls/hr IV CONT [facility] Last Admin: 09/21/23 17:11 Dose: 100 mls/hr Documented By: JOSÉ ANTONIO Naloxone HCl (Naloxone 0.4 Mg/Ml Vial) 0.2 mg IV Q2MIN PRN PRN Reason: Opiate Reversal Nf - Dofetilide 250 (Mcg Capsule) 500 mcg PO BID [facility] Ondansetron HCl (Ondansetron 4 Mg/2 Ml Inj) 4 mg IV NOW PRN PRN Reason: Nausea And Vomiting Ondansetron HCl (Ondansetron 4 Mg Odt) 4 mg SL NOW PRN PRN Reason: Nausea And Vomiting Pantoprazole Sodium (Pantoprazole 40 Mg Vial) 40 mg IV BID [facility] Thyroid (Thyroid, Pork 30 Mg Tablet) 120 mg PO BID [facility] Zolpidem Tartrate (Zolpidem 5 Mg Tablet) 10 mg PO BEDTIME PRN PRN Reason: Insomnia Discontinued Medications Dextrose/Sodium Chloride (Dextrose 5%-0.9% Ns) 1,000 mls @ 100 mls/hr IV CONT [facility] Last Admin: 09/21/23 17:08 Dose: Not Given Documented By: JOSÉ ANTONIO Pantoprazole Sodium (Pantoprazole 40 Mg Vial) 80 mg IV NOW ONE Stop: 09/21/23 11:16 Last Admin: 09/21/23 11:32 Dose: 80 mg Documented By: Vital Signs Vital signs: Vital Signs - 8 hr 09/21/23 11:10 09/21/23 11:11 09/21/23 11:12 Temperature 97.5 F L Pulse Rate 88 89 87 Respiratory Rate 14 18 9 L Blood Pressure 174/81 H Pulse Oximetry 99 100 100 Oxygen Delivery Method Room Air 09/21/23 11:12 09/21/23 11:15 09/21/23 11:30 Temperature Pulse Rate 88 84 Respiratory Rate 16 14 Blood Pressure 174/81 H Pulse Oximetry 100 99 Oxygen Delivery Method Room Air 09/21/23 11:30 09/21/23 11:40 09/21/23 11:45 Temperature 98.6 F Pulse Rate 82 81 Respiratory Rate 13 10 L Blood Pressure 157/69 H 157/69 H Pulse Oximetry 97 100 Oxygen Delivery Method Room Air 09/21/23 12:00 09/21/23 12:00 09/21/23 12:18 Temperature Pulse Rate 80 89 Respiratory Rate 13 Blood Pressure 151/71 H Pulse Oximetry 98 100 Oxygen Delivery Method 09/21/23 12:48 09/21/23 12:49 09/21/23 12:49 Temperature Pulse Rate 112 H 112 H Respiratory Rate 10 L 9 L Blood Pressure 157/67 H Pulse Oximetry 99 100 Oxygen Delivery Method 09/21/23 13:00 09/21/23 13:00 09/21/23 13:15 Temperature Pulse Rate 99 H 94 H Respiratory Rate 11 L 20 Blood Pressure 150/72 H Pulse Oximetry 100 99 Oxygen Delivery Method 09/21/23 13:30 09/21/23 13:30 09/21/23 13:45 Temperature Pulse Rate 86 89 Respiratory Rate 14 30 H Blood Pressure 147/69 H Pulse Oximetry 99 99 Oxygen Delivery Method 09/21/23 14:00 09/21/23 14:00 09/21/23 14:15 Temperature Pulse Rate 83 88 Respiratory Rate 13 22 Blood Pressure 125/66 Pulse Oximetry 99 98 Oxygen Delivery Method MDM - GI Bleed Differential Diagnosis Differential diagnosis: Likely hemorrhoids, infectious diarrhea and esophageal varices Lab Data 09/21/23 11:12 09/21/23 11:12 Labs: Lab Results 09/21/23 Range/Units 11:12 WBC 9.6 (4.5-11.0) X10^3/uL RBC 3.14 L (4.5-5.9) X10^6/uL Hgb 9.7 L (13.5-17.5) g/dL Hct 28.4 L (41-53) % MCV 90.4 (80-100) fL MCH 31.0 (26-34) PG MCHC 34.3 (30-36) % RDW 13.2 (11.6-14.8) % Plt Count 182 (150-400) X10^3/uL Neut % (Auto) 77.4 H (50-75) % Lymph % (Auto) 15.9 L (25-40) % [place] % (Auto) 6.2 (3-14) % Eos % (Auto) 0.3 L (2-4) % Baso % (Auto) 0.2 (0-2) % Neut # (Auto) 7400 H (4841-5670) /uL Lymph # (Auto) 1500 (0268-5403) /uL [place] # (Auto) 600 (0-900) /uL Eos # (Auto) 0 (0-450) /uL Baso # (Auto) 0 (0-100) /uL PT 15.4 H (9.4-12.5) SECONDS INR 1.3 (0.9-1.3) APTT 34 (25.1-36.5) SECONDS Sodium 136 L (137-145) mmol/L Potassium 4.1 (3.4-5.1) mmol/L Chloride 106 (98-107) mmol/L Carbon Dioxide 26 (22-32) mmol/L BUN 43 H (9-20) mg/dL Creatinine 1.12 (0.66-1.25) mg/dL Estimated GFR > 60 (>60) mL/min BUN/Creatinine Ratio 38.4 H (6-22) Glucose 148 H (80-110) mg/dL Calcium 10.4 H (8.4-10.2) mg/dL Total Bilirubin 0.4 (0.2-1.3) mg/dL AST 28 (17-59) IU/L ALT 27 (<50) IU/L Alkaline Phosphatase 47 (38-126) U/L Total Protein 5.9 L (6.3-8.2) g/dL Albumin 3.6 (3.5-5.0) g/dL Globulin 2.3 (1.7-4.1) g/dL Albumin/Globulin Ratio 1.6 (1.0-2.8) Blood Type A Positive Antibody Screen Negative Urine Dip Bedside Urine Glucose Negative Bedside Urine Bilirubin - Negative Bedside Urine Ketone - Negative Urine Specific [place] 1.010 Bedside Urine Occult Blood - Negative Bedside Urine pH 7.5 Bedside Urine Protein - Negative Bedside Urine Urobilinogen - Negative Bedside Urine Nitrite - Negative Bedside Urine Leukocytes - Negative Esterase Imaging Data CT scan - abdomen/pelvis: Radiologist's Impression: PROCEDURE: CT ABDOMEN PELVIS W CON INDICATIONS: 'RECTAL PRESSURE', DARK STOOLS TECHNIQUE: After the administration of intravenous contrast, axial sections acquired from the lung bases to the pubic symphysis. Coronal and sagittal reformats were performed. For radiation dose reduction, the following was used: automated exposure control, adjustment of mA and/or kV according to patient size. COMPARISON: None. FINDINGS: Image quality: Diagnostic. Lower Chest: No significant findings. ABDOMEN: Liver: No solid mass. Gallbladder: No radiopaque gallstones or wall thickening. Biliary ducts: No biliary dilation. Pancreas: No ductal dilation. Spleen: Size is within normal limits. Adrenal Glands: No adrenal nodules. Kidneys and Ureters: No hydronephrosis. No solid mass. No complex renal cystic lesion which requires follow up. Stomach and Bowel: No bowel obstruction. There is slight bowel wall thickening of the sigmoid colon. Scattered colonic diverticula. Peritoneum: No abnormal intraperitoneal fluid. No free air. Ventral Wall: No significant ventral hernia. Abdominal Nodes: No retroperitoneal or mesenteric adenopathy by size criteria. Vessels: Aorta and inferior vena cava are normal in size. PELVIS: Pelvic Organs: Unremarkable. Bladder: No bladder wall thickening, accounting for underdistention. Pelvic Nodes: No enlarged lymph nodes. Miscellaneous: No inguinal hernias are seen. Bones: No aggressive osseous abnormality. IMPRESSION: Slight wall thickening of sigmoid colon which may be exaggerated by underdistention versus colitis or simple diverticulitis Dictated by: Fernando Coelho M.D. on 09/21/2023 at 11:34 Approved by: Fernando Coelho M.D. on 09/21/2023 at 11:38 MDM Narrative Medical decision making narrative: Dark tarry stools as well as generalized weakness and lightheadedness when changing positions or exerting himself. Abdomen is soft, no reproducible tenderness to palpation, however given patient's reported symptoms as well as suspicion for possible GI bleed we will order labs and CT imaging. Protonix ordered. At this time since patient only took 1 single dose of Xarelto and is not chronically anticoagulated I do not anticipate needing to reverse anticoagulation at this time. Laboratory work is significant for hemoglobin of 9.7, decreased from 13.9 on 08/30/2023. Other labs are significant for WBC count 9.6, sodium 136, BUN 43, creatinine 1.12 with BUN creatinine ratio 38.4. Patient attempted to have a bowel movement but was unsuccessful. Rectal exam shows melanotic stool present without gross blood. CT scan shows slight wall thickening of the sigmoid colon which could be under distention versus colitis. With soft exam as well as reported multiple bowel movements last night believe this to be underdistention rather than any infectious process, especially without leukocytosis. Discussed case with general surgery Dr. Montilla, who requests patient be made NPO at midnight and can take patient for endoscopy tomorrow morning. Patient admitted for further treatment of his condition. Discharge Plan Departure Patient Disposition: Admitted as Observation Clinical Impression: Acute upper GI bleeding, Anemia Admit Date/Time: 09/21/23 14:24 Admit Provider: Elpidio Nelson
[2023-09-21 11:26] LABS: Add Manual Diff / Slide Review NO; Basophils Absolute Auto 0 /uL (0-100); Basophils Percent Auto 0.2 % (0-2); Eosinophils Absolute Auto 0 /uL (0-450); Eosinophils Percent Auto 0.3 % (2-4); Hematocrit 28.4 % (41-53); Hemoglobin 9.7 g/dL (13.5-17.5); Lymphocytes Absolute Auto 1500 /uL (1100-4500); Lymphocytes Percent Auto 15.9 % (25-40); Mean Corpuscular HGB Conc 34.3 % (30-36); Mean Corpuscular Volume 90.4 fL (80-100); Monocytes Absolute Auto 600 /uL (0-900); Monocytes Percent Auto 6.2 % (3-14); Neutrophils Absolute Auto 7400 /uL (1500-7000); Neutrophils Percent Auto 77.4 % (50-75); Platelet Count 182 X10^3/uL (150-400); Red Blood Cell Count 3.14 X10^6/uL (4.5-5.9); Red Cell Distribution Width 13.2 % (11.6-14.8); White Blood Cell Count 9.6 X10^3/uL (4.5-11.0)
[2023-09-21 11:32] LABS: INR 1.3 (0.9-1.3); Prothrombin Time 15.4 SECONDS (9.4-12.5)
[2023-09-21] MEDS: PANTOPRAZOLE 40 MG VIAL 80 MG IV (11:32)
[2023-09-21 11:34] LABS: PTT Partial Thromboplastin Tim 34 SECONDS (25.1-36.5)
--- NOTE | 2023-09-21 11:36 | DI.CT.S_ITS ---
PROCEDURE: CT ABDOMEN PELVIS W CON INDICATIONS: 'RECTAL PRESSURE', DARK STOOLS TECHNIQUE: After the administration of intravenous contrast, axial sections acquired from the lung bases to the pubic symphysis. Coronal and sagittal reformats were performed. For radiation dose reduction, the following was used: automated exposure control, adjustment of mA and/or kV according to patient size. COMPARISON: None. FINDINGS: Image quality: Diagnostic. Lower Chest: No significant findings. ABDOMEN: Liver: No solid mass. Gallbladder: No radiopaque gallstones or wall thickening. Biliary ducts: No biliary dilation. Pancreas: No ductal dilation. Spleen: Size is within normal limits. Adrenal Glands: No adrenal nodules. Kidneys and Ureters: No hydronephrosis. No solid mass. No complex renal cystic lesion which requires follow up. Stomach and Bowel: No bowel obstruction. There is slight bowel wall thickening of the sigmoid colon. Scattered colonic diverticula. Peritoneum: No abnormal intraperitoneal fluid. No free air. Ventral Wall: No significant ventral hernia. Abdominal Nodes: No retroperitoneal or mesenteric adenopathy by size criteria. Vessels: Aorta and inferior vena cava are normal in size. PELVIS: Pelvic Organs: Unremarkable. Bladder: No bladder wall thickening, accounting for underdistention. Pelvic Nodes: No enlarged lymph nodes. Miscellaneous: No inguinal hernias are seen. Bones: No aggressive osseous abnormality. IMPRESSION: Slight wall thickening of sigmoid colon which may be exaggerated by underdistention versus colitis or simple diverticulitis Dictated by: Fernando Coelho M.D. on 09/21/2023 at 11:34 Approved by: Fernando Coelho M.D. on 09/21/2023 at 11:38
[2023-09-21 11:39] LABS: Alanine Aminotransferase 27 IU/L (<50); Albumin 3.6 g/dL (3.5-5.0); Albumin Globulin Ratio 1.6 (1.0-2.8); Alkaline Phosphatase 47 U/L (38-126); Aspartate Aminotransferase 28 IU/L (17-59); BUN Creatinine Ratio 38.4 (6-22); Bilirubin Total 0.4 mg/dL (0.2-1.3); Blood Urea Nitrogen 43 mg/dL (9-20); Calcium 10.4 mg/dL (8.4-10.2); Carbon Dioxide 26 mmol/L (22-32); Chloride 106 mmol/L (98-107); Estimated Glomerular Filt Rate > 60 mL/min (>60); Globulin 2.3 g/dL (1.7-4.1); Glucose 148 mg/dL (80-110); HEMOLYSIS < 15 (0-50); Potassium 4.1 mmol/L (3.4-5.1); Sodium 136 mmol/L (137-145); Total Protein 5.9 g/dL (6.3-8.2)
--- NOTE | 2023-09-21 16:16 | PM.HP.1 ---
History of Present Illness History of Present Illness Date Patient Seen: 10/01/23 Time Patient Seen: 16:16 Chief complaint: Weakness Narrative: The patient is a 77-year-old male with a past history of paroxysmal atrial fibrillation and flutter, as well as CAD. 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 The patient has no history of peptic ulcer disease or melena. He was prescribed Xarelto but does not take this routinely. He coincidentally took 1 dose yesterday after his 1st melena episode thinking it was palpitations and his paroxysmal atrial fibrillation. He has a history of numerous ablations and many cardioversions in the past. The patient got up to go to the bathroom and middle of the night and then had a dark stool. He essentially crawl back to bed and repeated these episodes 2 more times. The patient became quite lightheaded and ultimately came to the hospital where he was found to be orthostatic, have melena on rectal exam, and have a drop in his baseline hemoglobin. The patient denies any abdominal pain but was having a fair amount of lower suprapubic pressure prior to each evacuation of melena. He has not taken his Xarelto routinely since July of 2023 but again took 1 dose on sales and customer relations rep of September 20. He arrives in the unit comfortable when lying flat but continues to have symptoms of dyspnea and palpitations if he sits up or tries to move. He denies any chest pain or pressure. He does have a history of an LAD stent and mild coronary artery disease to multiple other vessels. He denies abuse of anti-inflammatories but does take aspirin daily for CAD. [facility] Social History household members: spouse Smoking Status: Former smoker alcohol intake: current Meds Home Medications and Allergies Home Medications Medication Instructions Recorded Confirmed Type [DHEA] 50 mg PO QDAY ##0 01/10/17 09/21/23 History [PHOSPHATIDYL SERINE] 100 mg PO HS ##0 01/10/17 09/21/23 History [PREGNENOLONE] 100 mg PO QDAY ##0 01/10/17 09/21/23 History [ULTRA VITAMIN K] 1 tab PO QDAY ##0 01/10/17 09/21/23 History [VINPOCETINE] 1 tab PO HS ##0 01/10/17 09/21/23 History gabapentin 300 mg capsule 900 mg PO BID ##0 01/10/17 09/21/23 History (Neurontin) lutein 25 mg-zeaxanthin 5 mg 1 cap PO QDAY ##0 01/10/17 09/21/23 History capsule metoprolol succinate 50 mg 50 mg PO BID ##0 01/10/17 09/21/23 History tablet,extended release 24 hr dofetilide 250 mcg capsule 500 mcg PO BID ##0 06/02/17 09/21/23 History simvastatin 20 mg tablet 20 mg PO BEDTIME ##0 06/02/17 09/21/23 History lisinopril 30 mg tablet 30 mg PO BEDTIME 05/04/20 09/21/23 History nitroglycerin 0.4 mg sublingual 0.4 mg sublingual Q5-15M PRN chest 10/04/22 09/21/23 Rx tablet pain #10 tabs aspirin 81 mg tablet 81 mg PO DAILY 07/01/23 09/21/23 History thyroid (pork) 120 mg tablet (Niva 120 mg PO BID 07/01/23 09/21/23 History Thyroid) zolpidem 10 mg tablet 10 mg PO ONCE PM PRN Insomnia 07/01/23 09/21/23 History metoprolol succinate 25 mg 25 mg PO DAILY PRN Palpitations 08/30/23 09/21/23 Rx tablet,extended release 24 hr #30 tabs Allergies Allergy/AdvReac Type Severity Reaction Status Date / Time No Known Drug Allergies Allergy Verified 07/01/23 12:01 Review of Systems Review of Systems Narrative: All else reviewed and otherwise unremarkable except as noted in the history and physical. Exam Vital Signs (past 8 hours): - 09/21/23 11:10 09/21/23 11:11 09/21/23 11:12 Temperature 97.5 F L Pulse Rate 88 89 87 Respiratory Rate 14 18 9 L Blood Pressure 174/81 H Pulse Oximetry 99 100 100 Oxygen Delivery Method Room Air 09/21/23 11:12 09/21/23 11:15 09/21/23 11:30 Temperature Pulse Rate 88 84 Respiratory Rate 16 14 Blood Pressure 174/81 H Pulse Oximetry 100 99 Oxygen Delivery Method Room Air 09/21/23 11:30 09/21/23 11:40 09/21/23 11:45 Temperature 98.6 F Pulse Rate 82 81 Respiratory Rate 13 10 L Blood Pressure 157/69 H 157/69 H Pulse Oximetry 97 100 Oxygen Delivery Method Room Air 09/21/23 12:00 09/21/23 12:00 09/21/23 12:18 Temperature Pulse Rate 80 89 Respiratory Rate 13 Blood Pressure 151/71 H Pulse Oximetry 98 100 Oxygen Delivery Method 09/21/23 12:48 09/21/23 12:49 09/21/23 12:49 Temperature Pulse Rate 112 H 112 H Respiratory Rate 10 L 9 L Blood Pressure 157/67 H Pulse Oximetry 99 100 Oxygen Delivery Method 09/21/23 13:00 09/21/23 13:00 09/21/23 13:15 Temperature Pulse Rate 99 H 94 H Respiratory Rate 11 L 20 Blood Pressure 150/72 H Pulse Oximetry 100 99 Oxygen Delivery Method 09/21/23 13:30 09/21/23 13:30 09/21/23 13:45 Temperature Pulse Rate 86 89 Respiratory Rate 14 30 H Blood Pressure 147/69 H Pulse Oximetry 99 99 Oxygen Delivery Method 09/21/23 14:00 09/21/23 14:00 09/21/23 14:15 Temperature Pulse Rate 83 88 Respiratory Rate 13 22 Blood Pressure 125/66 Pulse Oximetry 99 98 Oxygen Delivery Method Oxygen Delivery Method Room Air Narrative Exam Narrative: NAD, alert and oriented, fluent speech, calm. Normocephalic skull, EOMI, anicteric sclera, symmetric pupils. Oropharynx unremarkable, no droop. Neck supple, midline trachea, no adenopathy. Lungs clear, normal rate and effort. Heart regular, no murmur gallop or rub. Abdomen is soft, non distended and non tender. Extremities are free of edema. Skin is free of rash or lesions. Joints are not swollen or deformed. Judgment appears to be normal. Objective Labs 09/21/23 11:12 09/21/23 11:12 Labs: Laboratory Results - last 24 hr 09/21/23 11:12 WBC 9.6 RBC 3.14 L Hgb 9.7 L Hct 28.4 L MCV 90.4 MCH 31.0 MCHC 34.3 RDW 13.2 Plt Count 182 Neut % (Auto) 77.4 H Lymph % (Auto) 15.9 L [place] % (Auto) 6.2 Eos % (Auto) 0.3 L Baso % (Auto) 0.2 Neut # (Auto) 7400 H Lymph # (Auto) 1500 [place] # (Auto) 600 Eos # (Auto) 0 Baso # (Auto) 0 PT 15.4 H INR 1.3 APTT 34 Sodium 136 L Potassium 4.1 Chloride 106 Carbon Dioxide 26 BUN 43 H Creatinine 1.12 Estimated GFR > 60 BUN/Creatinine Ratio 38.4 H Glucose 148 H Calcium 10.4 H Total Bilirubin 0.4 AST 28 ALT 27 Alkaline Phosphatase 47 Total Protein 5.9 L Albumin 3.6 Globulin 2.3 Albumin/Globulin Ratio 1.6 Blood Type A Positive Antibody Screen Negative Assessment & Plan Assessment & Plan narrative: 1. Melanotic bleed, present on admission and active. 2. Blood loss anemia, present on admission and active. 3. CAD, present on admission and stable. 4. Paroxysmal atrial fibrillation, atrial flutter. Not present on admission and stable. 5. DM 2, present on admission and stable. Plan: -clear liquids for dinner, NPO at midnight. -surgery is consulted in the ED and we will perform endoscopy tomorrow. -Protonix 80 mg IV given in the ED, we will continue 40 IV q.12 hours. -monitor serial hemoglobin, blood transfusion if indicated. We will use symptoms of chest pain or threshold of 8.0 (CAD). -hold aspirin today, hold antihypertensive medications. He is full resuscitation, confirmed today. Proxy is his . 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 Time Spent With Patient Time with patient: 30 to 49 minutes with 50% spent counseling/coordinating care Quality VTE Deep Vein Thrombosis/Pulmonary Embolism Present on Admission: No MIPS - Admit I confirm the patient?s Advance Care Plan is present, Code status is documented, Surrogate decision maker is in patient?s record [If Yes, STOP here]: Yes MIPS - Meds 'Current medications' to include all prescriptions, [id number] products, herbals, cannabis/cannabidiol products, and vitamin/mineral/dietary (nutritional) supplements. I have utilized all available resources to obtain, update, or review the patient?s current medications. [If Yes, STOP here]: Yes
[2023-09-21] MEDS: SODIUM CHLORIDE 0.9% 1,000 ML 100 ML IV (17:11)
[2023-09-21] MEDS: THYROID, PORK 30 MG TABLET 120 MG PO (21:16)
[2023-09-21] MEDS: PANTOPRAZOLE 40 MG VIAL IV (21:16)
[2023-09-21] MEDS: ATORVASTATIN 20 MG TABLET 10 MG PO (21:16)
[2023-09-21] MEDS: GABAPENTIN 300 MG CAPSULE 900 MG PO (21:16)
[2023-09-21] MEDS: DOFETILIDE 500 MCG 500 EACH PO (22:00)
[2023-09-22] VITALS (17 sets, daily range): BP systolic 113–158; BP diastolic 45–80; PULSE 72–89; RESP 14–20; TEMP 36.3–37; O2SAT 96–100
--- NOTE | 2023-09-22 | PATH_ITS ---
[facility] Accession Number: [id number] No. of containers..02 Tissue . 01 Material submitted: . PART A: duodenum - DUODENUM PART B: stomach - ANTRUM . 01 Diagnosis: A. DUODENUM, BIOPSY: Duodenal mucosa with no diagnostic abnormality. Negative for active inflammation, features of sprue, dysplasia, or malignancy. . B. ANTRUM, BIOPSY: Gastric mucosa with mild chronic inflammation. No Helicobacter pylori organisms identified on immunohistochemical evaluation. No intestinal metaplasia, dysplasia, or malignancy. . MRV 09/26/2023 1333 Local . 01 Electronically signed: . Shauna Razo MD, Pathologist NPI- [id number] . 01 Gross description: . Part A: DUODENUM: Received in formalin are 3 fragment(s) of escalante, soft tissue measuring 0.1 x 0.1 x 0.1 cm to 0.3 x 0.1 x 0.1 cm submitted entirely in 1 cassette(s) Part B: ANTRUM: Received in formalin are 4 fragment(s) of escalante, soft tissue measuring 0.2 x 0.2 x 0.2 cm to 0.4 x 0.3 x 0.2 cm submitted entirely in 1 cassette(s) /ARLENE 09/24/2023 1901 Local . 01 Microscopic: . B. An immunohistochemical stain was performed to evaluate for Helicobacter organisms and is negative. The control stain showed appropriate reactivity. . * This test was developed and its performance characteristics determined by [employer] (previously [employer]). It has not been cleared or approved by the U.S. Food and Drug Administration. The FDA has determined that such clearance or approval is not necessary. This test is used for clinical purposes. It should not be regarded as investigational or for research. . 01 Pathologist provided ICD-10: K29.70 . 01 CPT . 240745, 213346, [id number] Specimen Comment: A courtesy copy of this report has been sent to [phone] Performed at: 01 [facility] [address] [place] [address], [place], [place] [id number] MD Kirk Fraser MD Phone: [phone]
[2023-09-22 00:28] LABS: Hematocrit 22.5 % (41-53); Hemoglobin 7.8 g/dL (13.5-17.5)
[2023-09-22] MEDS: SODIUM CHLORIDE 0.9% 1,000 ML 100 ML IV (01:42)
[2023-09-22 04:46] LABS: Add Manual Diff / Slide Review NO; Basophils Absolute Auto 0 /uL (0-100); Basophils Percent Auto 0.5 % (0-2); Eosinophils Absolute Auto 100 /uL (0-450); Eosinophils Percent Auto 1.4 % (2-4); Hematocrit 21.9 % (41-53); Hemoglobin 7.6 g/dL (13.5-17.5); Lymphocytes Absolute Auto 1600 /uL (1100-4500); Lymphocytes Percent Auto 22.1 % (25-40); Mean Corpuscular HGB Conc 34.6 % (30-36); Mean Corpuscular Hemoglobin 31.2 PG (26-34); Monocytes Absolute Auto 600 /uL (0-900); Monocytes Percent Auto 8.7 % (3-14); Neutrophils Absolute Auto 5000 /uL (1500-7000); Neutrophils Percent Auto 67.3 % (50-75); Platelet Count 144 X10^3/uL (150-400); Red Blood Cell Count 2.43 X10^6/uL (4.5-5.9); Red Cell Distribution Width 13.1 % (11.6-14.8); White Blood Cell Count 7.4 X10^3/uL (4.5-11.0)
[2023-09-22 05:01] LABS: BUN Creatinine Ratio 27.8 (6-22); Blood Urea Nitrogen 32 mg/dL (9-20); Calcium 8.9 mg/dL (8.4-10.2); Carbon Dioxide 26 mmol/L (22-32); Chloride 108 mmol/L (98-107); Estimated Glomerular Filt Rate > 60 mL/min (>60); Glucose 140 mg/dL (80-110); HEMOLYSIS < 15 (0-50); Potassium 4.1 mmol/L (3.4-5.1); Sodium 136 mmol/L (137-145)
--- NOTE | 2023-09-22 07:56 | PM.PN.1 ---
Subjective Subjective Interval history: He feels better than yesterday, less orthostatic symptoms when moving around. He would 1 melanotic stool overnight which was small volume. He has no abdominal pain, dyspnea or chest pain. H/H dropped overnight to 7.6/21. Exam Vital Signs (past 8 hours): - 09/22/23 00:00 09/22/23 04:00 Temperature 98.4 F 97.4 F L Pulse Rate 75 75 Respiratory Rate 17 18 Blood Pressure 128/64 125/64 Pulse Oximetry 98 96 Oxygen Delivery Method Room Air Oxygen Flow Rate 0 Narrative Exam Narrative: NAD, alert and oriented. Fluent speech. Lungs are clear, normal rate and effort. Heart is regular, no murmur gallop or rub. Abdomen is soft, non distended. Extremities are free of edema. Objective Labs 09/22/23 04:36 09/22/23 04:36 Labs: Laboratory Results - last 24 hr 09/21/23 09/22/23 09/22/23 11:12 00:20 04:36 WBC 9.6 7.4 RBC 3.14 L 2.43 L Hgb 9.7 L 7.8 L 7.6 L Hct 28.4 L 22.5 L 21.9 L MCV 90.4 90.0 MCH 31.0 31.2 MCHC 34.3 34.6 RDW 13.2 13.1 Plt Count 182 144 L Neut % (Auto) 77.4 H 67.3 Lymph % (Auto) 15.9 L 22.1 L [place] % (Auto) 6.2 8.7 Eos % (Auto) 0.3 L 1.4 L Baso % (Auto) 0.2 0.5 Neut # (Auto) 7400 H 5000 Lymph # (Auto) 1500 1600 [place] # (Auto) 600 600 Eos # (Auto) 0 100 Baso # (Auto) 0 0 PT 15.4 H INR 1.3 APTT 34 Sodium 136 L 136 L Potassium 4.1 4.1 Chloride 106 108 H Carbon Dioxide 26 26 BUN 43 H 32 H Creatinine 1.12 1.15 Estimated GFR > 60 > 60 BUN/Creatinine Ratio 38.4 H 27.8 H Glucose 148 H 140 H Calcium 10.4 H 8.9 Total Bilirubin 0.4 AST 28 ALT 27 Alkaline Phosphatase 47 Total Protein 5.9 L Albumin 3.6 Globulin 2.3 Albumin/Globulin Ratio 1.6 Blood Type A Positive Antibody Screen Negative [facility] Social History household members: spouse Smoking Status: Former smoker alcohol intake: current Assessment & Plan Assessment & Plan narrative: 1. Melanotic bleed, present on admission and active. 2. Acute blood loss anemia, present on admission and active. 3. CAD, present on admission and stable. 4. Paroxysmal atrial fibrillation, atrial flutter. Not present on admission and stable. 5. DM 2, present on admission and stable. Plan: -transfuse this AM. Monitor H/H. -surgery was consulted in the ED and we will perform EGD this AM. -Protonix 80 mg IV given in the ED, continue 40 IV q.12 hours. -hold aspirin, hold antihypertensive medications. He is full resuscitation, confirmed today. Proxy is his . 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 ARTEMIO (estimated date of discharge): 09/22. Assuming H/H stable and bleeding resolved. Quality VTE Deep Vein Thrombosis/Pulmonary Embolism Present on Admission: No
[2023-09-22] MEDS: diphenhydrAMINE 25 MG TABLET 50 MG PO (08:40)
--- NOTE | 2023-09-22 09:06 | PM.CN ---
History of Present Illness Consult details Date Patient Seen: 09/22/23 Time Patient Seen: 09:07 Chief complaint: Weakness Narrative: Froy is a 77-year-old man who presented with fatigue, anemia and melena. He first developed symptoms on Saturday when he was at an 8 cm. He became dizzy and had to sit down. That night he had 3 episodes of dark, tarry stool and came to the ER. He was found to be anemic and has received 1 unit of packed red blood cell so far. Has been taking more Motrin for migraines lately. He also takes a baby aspirin. He is not on any blood thinners. He has never had prior episode of GI bleed. He has never had an EGD or colonoscopy. He denies abdominal pain. Meds Home Medications and Allergies Home Medications Medication Instructions Recorded Confirmed Type [DHEA] 50 mg PO QDAY ##0 01/10/17 09/21/23 History [PHOSPHATIDYL SERINE] 100 mg PO HS ##0 01/10/17 09/21/23 History [PREGNENOLONE] 100 mg PO QDAY ##0 01/10/17 09/21/23 History [ULTRA VITAMIN K] 1 tab PO QDAY ##0 01/10/17 09/21/23 History [VINPOCETINE] 1 tab PO HS ##0 01/10/17 09/21/23 History gabapentin 300 mg capsule 900 mg PO BID ##0 01/10/17 09/21/23 History (Neurontin) lutein 25 mg-zeaxanthin 5 mg 1 cap PO QDAY ##0 01/10/17 09/21/23 History capsule metoprolol succinate 50 mg 50 mg PO BID ##0 01/10/17 09/21/23 History tablet,extended release 24 hr dofetilide 250 mcg capsule 500 mcg PO BID ##0 06/02/17 09/21/23 History simvastatin 20 mg tablet 20 mg PO BEDTIME ##0 06/02/17 09/21/23 History lisinopril 30 mg tablet 30 mg PO BEDTIME 05/04/20 09/21/23 History nitroglycerin 0.4 mg sublingual 0.4 mg sublingual Q5-15M PRN chest 10/04/22 09/21/23 Rx tablet pain #10 tabs aspirin 81 mg tablet 81 mg PO DAILY 07/01/23 09/21/23 History thyroid (pork) 120 mg tablet (Niva 120 mg PO BID 07/01/23 09/21/23 History Thyroid) zolpidem 10 mg tablet 10 mg PO ONCE PM PRN Insomnia 07/01/23 09/21/23 History metoprolol succinate 25 mg 25 mg PO DAILY PRN Palpitations 08/30/23 09/21/23 Rx tablet,extended release 24 hr #30 tabs Allergies Allergy/AdvReac Type Severity Reaction Status Date / Time No Known Drug Allergies Allergy Verified 07/01/23 12:01 Exam Vital Signs (past 8 hours): - 09/22/23 04:00 09/22/23 08:49 Temperature 97.4 F L 98.1 F Pulse Rate 75 88 Respiratory Rate 18 16 Blood Pressure 125/64 135/66 Pulse Oximetry 96 Oxygen Delivery Method Room Air Oxygen Flow Rate 0 Const General: healthy appearing Resp Effort & Inspection: normal respiratory effort Objective Labs 09/22/23 04:36 09/22/23 04:36 Labs: Laboratory Results - last 24 hr 09/21/23 09/22/23 09/22/23 11:12 00:20 04:36 WBC 9.6 7.4 RBC 3.14 L 2.43 L Hgb 9.7 L 7.8 L 7.6 L Hct 28.4 L 22.5 L 21.9 L MCV 90.4 90.0 MCH 31.0 31.2 MCHC 34.3 34.6 RDW 13.2 13.1 Plt Count 182 144 L Neut % (Auto) 77.4 H 67.3 Lymph % (Auto) 15.9 L 22.1 L [place] % (Auto) 6.2 8.7 Eos % (Auto) 0.3 L 1.4 L Baso % (Auto) 0.2 0.5 Neut # (Auto) 7400 H 5000 Lymph # (Auto) 1500 1600 [place] # (Auto) 600 600 Eos # (Auto) 0 100 Baso # (Auto) 0 0 PT 15.4 H INR 1.3 APTT 34 Sodium 136 L 136 L Potassium 4.1 4.1 Chloride 106 108 H Carbon Dioxide 26 26 BUN 43 H 32 H Creatinine 1.12 1.15 Estimated GFR > 60 > 60 BUN/Creatinine Ratio 38.4 H 27.8 H Glucose 148 H 140 H Calcium 10.4 H 8.9 Total Bilirubin 0.4 AST 28 ALT 27 Alkaline Phosphatase 47 Total Protein 5.9 L Albumin 3.6 Globulin 2.3 Albumin/Globulin Ratio 1.6 Blood Type A Positive Antibody Screen Negative Crossmatch See Detail PFSH Social History household members: spouse Tobacco & Substance Use Smoking Status: Former smoker alcohol intake: current Assessment & Plan Assessment and plan (1) Acute upper GI bleeding: Status: Acute Plan I suspect the most likely etiology for his anemia and melena is peptic ulcers given his history of NSAID use. We reviewed the risks and benefits of an esophagogastroduodenoscopy to evaluate for an upper GI bleed. He would like to proceed.
--- NOTE | 2023-09-22 09:53 | P.OP.EGD_ITS ---
Operative Date/Time/Diagnoses Date of procedure: 09/22/23 Time of procedure: 09:53 Pre-op diagnosis: Melena Post-op diagnosis: same Procedure & Clinicians Study performed: Esophagogastroduodenoscopy Same procedure as scheduled: Yes Surgeon: Russell Montilla Procedure Notes Procedure in detail: Surgeon: Russell Montilla MD Anesthesia: Meliton Bourne D.O. A timeout was performed. A bite blocked was placed. The patient was positioned in the left lateral decubitus position. Anesthesia was administered. The endoscope was inserted through the bite block and passed through the esophagus and stomach and into the duodenum. Moderate duodenitis was noted in the duodenal bulb and first portion of the duodenum. No ulcerations were seen. The second and third portions of the duodenal appeared normal. Random biopsies were taken from the duodenal bulb and first portion of the duodenum with cold fo rceps. The scope was withdrawn into the stomach. A single patch of mild antritis was noted in one quadrant of the antrum. No ulcerations were seen. Random biopsies were taken with cold forceps from the antrum. The rest of the stomach was normal. The scope was retroflexed and no hiatal hernia was seen. The scope was withdrawn into the esophagus and no abnormalities were seen. The remainder of the esophagus was normal. The scope was withdrawn. The patient was awakened and brought to recovery. Sedation time: 9 minutes Findings: Moderate duodenitis and mild antritis, no obvious ulcerations Post-procedure Disposition: PACU
[2023-09-22] MEDS: DOFETILIDE 500 MCG 500 EACH PO ×2 (11:14→21:11)
[2023-09-22] MEDS: THYROID, PORK 30 MG TABLET 120 MG PO (11:15)
[2023-09-22] MEDS: GABAPENTIN 300 MG CAPSULE 900 MG PO ×2 (11:15→21:12)
[2023-09-22] MEDS: PANTOPRAZOLE 40 MG VIAL IV (11:15)
[2023-09-22] MEDS: LACTATED RINGERS 1,000 ML 42 ML IV (11:16)
--- NOTE | 2023-09-22 14:10 | CM.DANOTE ---
Patient is a 77 yo male who was admitted on 09/21/23 for Weakness. Pt has MCR and COMM for insurance and his PCP is Gertrude Garcia. EMR was reviewed. Per MD, pt with hx of AFIB with multiple ablations and cardioversions and admitted for GI Bleed and anemia. Per Surgeon, pt to have scope today to determine source of bleed and if any active bleed. 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 Pt does not use DME for ambulation and independent with ADLs and drives and typically does home exercise workout daily with weights. Pt does not anticipate any discharge planning needs pending his scope and preference is to discharge home when medically stable via spouse POV. Plan: SW to follow closely for scope results towards confirming safe d/c home with spouse and any further identified discharge planning needs. ELODIA Brito Discharge Planning/Care Management CM Discharge Assessment Start: 09/22/23 14:05 Freq: Status: Active Protocol: Document 09/22/23 14:06 BF (Rec: 09/22/23 14:10 [id number]) Discharge Planning Assessment Assigned Senior Windows Engineer ELODIA Chowdary DPOA/Assigned Designee Name spouse Leigh Advance Directives? Yes: Advance Directive Advance Directives on File Yes History Provided By Patient,Medical Record Has Patient been admitted in last 30 No days? Prior Living Arrangements House Household Members spouse Type of transporation used prior to Drives own vehicle admit Independent with ADL's Yes Is patient alert and oriented? Yes Caregiver for Another No Barriers to Discharge No Discharge Plan Home Transportation Arrangement Likely spouse at d/c Referrals Initiated None needed Additional Comment Pending scope with Surgeon Whiteboard Updated in Patient Room with Yes name and ext. # of Senior Windows Engineer Review Status In Process Please Provide Date Initial DC 09/22/23 Assessment Was Performed Next Review Type Continued Stay Review
[2023-09-22 18:02] LABS: Hematocrit 24.6 % (41-53); Hemoglobin 8.5 g/dL (13.5-17.5)
[2023-09-22] MEDS: ATORVASTATIN 20 MG TABLET 10 MG PO (21:12)
[2023-09-22] MEDS: PANTOPRAZOLE DR 40 MG TABLET PO (21:12)
[2023-09-22] MEDS: SODIUM CHLORIDE 0.9% FLUSH 10 ML IV (22:20)
--- NOTE | 2023-09-22 22:56 | PC.NURSE ---
Addendum entered by Eusebia Kincaid R.N. 09/23/23 05:57: Dr. Oneill notified at 1948 of troponin of 0.028 and determined that no further troponin was needed. Contacted later by coordinator, Sharonda, after discussion and order received for troponin to be done this morning. Notified at 0555 that 3rd troponin was elevated at 0.068. Original Note: Patient is alert and oriented. Breath sounds CTA with RA sat of 96%. Denies SOB unless he walks fast but stated if he takes it slow he does not become SOB. HRR with telemetry reading of SR. Denies nausea or abdominal tenderness. BT hypoactive; reports he had black stool on previous shift but none since 1899. Is voiding without dysuria. Is independent with mobility so declines use of SCD's. Denies pain. Fall risk score is low.
[2023-09-23] VITALS (11 sets, daily range): BP systolic 108–138; BP diastolic 53–69; PULSE 68–84; RESP 12–20; TEMP 36.1–37.3; O2SAT 97–99
[2023-09-23 04:36] LABS: Add Manual Diff / Slide Review NO; Basophils Absolute Auto 0 /uL (0-100); Basophils Percent Auto 0.5 % (0-2); Eosinophils Absolute Auto 300 /uL (0-450); Eosinophils Percent Auto 3.6 % (2-4); Hematocrit 21.6 % (41-53); Hemoglobin 7.6 g/dL (13.5-17.5); Lymphocytes Absolute Auto 1800 /uL (1100-4500); Lymphocytes Percent Auto 21.6 % (25-40); Mean Corpuscular HGB Conc 35.1 % (30-36); Mean Corpuscular Hemoglobin 31.5 PG (26-34); Mean Corpuscular Volume 89.5 fL (80-100); Monocytes Absolute Auto 800 /uL (0-900); Monocytes Percent Auto 10.1 % (3-14); Neutrophils Absolute Auto 5200 /uL (1500-7000); Neutrophils Percent Auto 64.2 % (50-75); Platelet Count 139 X10^3/uL (150-400); Red Blood Cell Count 2.41 X10^6/uL (4.5-5.9); Red Cell Distribution Width 13.2 % (11.6-14.8); White Blood Cell Count 8.1 X10^3/uL (4.5-11.0)
[2023-09-23 04:54] LABS: BUN Creatinine Ratio 19.8 (6-22); Blood Urea Nitrogen 25 mg/dL (9-20); Calcium 9.3 mg/dL (8.4-10.2); Carbon Dioxide 28 mmol/L (22-32); Chloride 107 mmol/L (98-107); Estimated Glomerular Filt Rate 59 mL/min (>60); Glucose 113 mg/dL (80-110); HEMOLYSIS < 15 (0-50); Potassium 4.1 mmol/L (3.4-5.1); Sodium 136 mmol/L (137-145)
--- NOTE | 2023-09-23 05:59 | PC.NURSE ---
Addendum entered by Eusebia Kincaid R.N. 09/23/23 06:00: Dr. Oneill notified at 0524 of h&h this morning being 7.6/21.6. No new orders received as of this time. Original Note: 2256: Patient is alert and oriented. Breath sounds CTA with RA sat of 96%. Denies SOB unless he walks fast but stated if he takes it slow he does not become SOB. HRR with telemetry reading of SR. Denies nausea or abdominal tenderness. BT hypoactive; reports he had black stool on previous shift but none since 1899. Is voiding without dysuria. Is independent with mobility so declines use of SCD's. Denies pain. Fall risk score is low.
[2023-09-23] MEDS: THYROID, PORK 30 MG TABLET 120 MG PO ×2 (08:59→21:26)
[2023-09-23] MEDS: GABAPENTIN 300 MG CAPSULE 900 MG PO ×2 (09:00→20:21)
[2023-09-23] MEDS: PANTOPRAZOLE DR 40 MG TABLET PO ×2 (09:00→20:22)
[2023-09-23] MEDS: DOFETILIDE 500 MCG 500 EACH PO ×2 (09:00→20:21)
[2023-09-23] MEDS: SODIUM CHLORIDE 0.9% FLUSH 10 ML IV ×2 (09:00→20:00)
[2023-09-23 10:18] LABS: Hemoglobin 7.8 g/dL (13.5-17.5)
[2023-09-23] MEDS: diphenhydrAMINE 50 MG/ML VIAL IV (16:42)
--- NOTE | 2023-09-23 18:10 | P.PN_ITS ---
Subjective Subjective Interval history: Hgb stable at 7.8. Another unit of blood ordered to get >8 due to patient's history of CAD. He denies any further melena. Having more PVC's since his metoprolol was held. Exam Vital Signs (past 8 hours): - 09/23/23 12:00 09/23/23 16:00 09/23/23 16:31 Temperature 97.5 F L 98.8 F 98.8 F Pulse Rate 83 82 82 Respiratory Rate 18 18 17 Blood Pressure 132/59 L 126/57 L 126/57 L Pulse Oximetry 99 Oxygen Flow Rate 0 09/23/23 16:56 09/23/23 17:24 Temperature 99.1 F 97.6 F Pulse Rate 74 84 Respiratory Rate 16 Blood Pressure 134/53 L 124/55 L Pulse Oximetry Oxygen Flow Rate Oxygen Delivery Method Room Air Oxygen Flow Rate 0 Narrative Exam Narrative: NAD, alert and oriented. Fluent speech. Lungs are clear, normal rate and effort. Heart is regular, no murmur gallop or rub. Abdomen is soft, non distended. Extremities are free of edema. Objective Labs 09/23/23 10:05 09/23/23 04:19 Labs: Laboratory Results - last 24 hr 09/21/23 09/23/23 09/23/23 11:12 04:19 10:05 WBC 8.1 RBC 2.41 L Hgb 7.6 L 7.8 L Hct 21.6 L MCV 89.5 MCH 31.5 MCHC 35.1 RDW 13.2 Plt Count 139 L Neut % (Auto) 64.2 Lymph % (Auto) 21.6 L [place] % (Auto) 10.1 Eos % (Auto) 3.6 Baso % (Auto) 0.5 Neut # (Auto) 5200 Lymph # (Auto) 1800 [place] # (Auto) 800 Eos # (Auto) 300 Baso # (Auto) 0 Sodium 136 L Potassium 4.1 Chloride 107 Carbon Dioxide 28 BUN 25 H Creatinine 1.26 H Estimated GFR 59 L BUN/Creatinine Ratio 19.8 Glucose 113 H Calcium 9.3 Blood Type A Positive Antibody Screen Negative Crossmatch See Detail PFSH Social History household members: spouse Smoking Status: Former smoker alcohol intake: current Assessment & Plan Assessment & Plan narrative: 1. Melanotic bleed, present on admission and improving. 2. Acute blood loss anemia, present on admission and active. 3. CAD, present on admission and stable. 4. Paroxysmal atrial fibrillation, atrial flutter. Not present on admission and stable. 5. DM 2, present on admission and stable. Plan: -s/p 2 units PRBC's to get Hgb >8 due to CAD history -surgery was consulted in the ED, performed EGD which showed only mod duodenitis and mild antritis, no evidence of bleeding -Protonix 80 mg IV given in the ED, continue 40 IV q.12 hours. -hold aspirin, hold lisinopril but restarted metoprolol due to PVC's He is full resuscitation Proxy is his . 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 Dispo: Home on 09/23 if morning Hgb stable. Quality VTE Deep Vein Thrombosis/Pulmonary Embolism Present on Admission: No
[2023-09-23] MEDS: ATORVASTATIN 20 MG TABLET 10 MG PO (20:21)
--- NOTE | 2023-09-23 23:35 | PC.NURSE ---
Addendum entered by Eusebia Kincaid R.N. 09/23/23 23:41: Correction to previous charting: Fall risk score is low. Original Note: Patient is alert and oriented although sleepy at time of assessment related to taking Benadryl earlier. Blood transfusion completed at 1999. Breath sounds CTA with RA sat of 97. HRR but telemetry reading was SR with occasional PVC's. BP soft at 108/54 so hs Metoprolol held. Denied nausea. BT present and passing flatus but no further black stools. Voiding without dysuria. Is independent with mobility and steady on feet. Does reports he is still SOB if he walks too fast but denies SOB if he takes his time during exertion. SCD's not on as patient is now independent. Denies pain. Fall risk score is moderate but alarm not activated at this time.
[2023-09-24] VITALS: BP 139/67; PULSE 70; RESP 16; TEMP 36.2; O2SAT 97
[2023-09-24 04:33] VITALS: BP 130/59; PULSE 72; RESP 16; TEMP 36.7; O2SAT 98
[2023-09-24 04:44] LABS: Add Manual Diff / Slide Review NO; Basophils Absolute Auto 0 /uL (0-100); Basophils Percent Auto 0.6 % (0-2); Eosinophils Absolute Auto 200 /uL (0-450); Eosinophils Percent Auto 3.5 % (2-4); Hematocrit 22.8 % (41-53); Lymphocytes Absolute Auto 1700 /uL (1100-4500); Lymphocytes Percent Auto 24.7 % (25-40); Mean Corpuscular HGB Conc 35.1 % (30-36); Mean Corpuscular Hemoglobin 31.4 PG (26-34); Mean Corpuscular Volume 89.6 fL (80-100); Monocytes Absolute Auto 600 /uL (0-900); Neutrophils Absolute Auto 4200 /uL (1500-7000); Neutrophils Percent Auto 62.2 % (50-75); Platelet Count 146 X10^3/uL (150-400); Red Blood Cell Count 2.54 X10^6/uL (4.5-5.9); Red Cell Distribution Width 13.5 % (11.6-14.8); White Blood Cell Count 6.7 X10^3/uL (4.5-11.0)
[2023-09-24 04:54] LABS: BUN Creatinine Ratio 17.7 (6-22); Blood Urea Nitrogen 20 mg/dL (9-20); Calcium 9.1 mg/dL (8.4-10.2); Carbon Dioxide 26 mmol/L (22-32); Chloride 110 mmol/L (98-107); Estimated Glomerular Filt Rate > 60 mL/min (>60); Glucose 139 mg/dL (80-110); HEMOLYSIS < 15 (0-50); Potassium 4.1 mmol/L (3.4-5.1); Sodium 136 mmol/L (137-145)
[2023-09-24 08:00] VITALS: BP 148/69; PULSE 75; RESP 16; TEMP 36.2; O2SAT 98
[2023-09-24] MEDS: DOFETILIDE 500 MCG 500 EACH PO (09:25)
[2023-09-24] MEDS: THYROID, PORK 30 MG TABLET 120 MG PO (09:25)
[2023-09-24 09:26] VITALS: BP 148/69; PULSE 75
[2023-09-24] MEDS: GABAPENTIN 300 MG CAPSULE 900 MG PO (09:26)
[2023-09-24] MEDS: METOPROLOL ER 50 MG TABLET PO (09:26)
[2023-09-24] MEDS: PANTOPRAZOLE DR 40 MG TABLET PO (09:26)
[2023-09-24] MEDS: SODIUM CHLORIDE 0.9% FLUSH 10 ML IV (09:27)
--- NOTE | 2023-09-24 10:04 | PM.DS.1 ---
History of Present Illness History of Present Illness Chief complaint: Weakness Narrative: The patient is a 77-year-old male with a past history of paroxysmal atrial fibrillation and flutter, as well as CAD. 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 The patient has no history of peptic ulcer disease or melena. He was prescribed Xarelto but does not take this routinely. He coincidentally took 1 dose yesterday after his 1st melena episode thinking it was palpitations and his paroxysmal atrial fibrillation. He has a history of numerous ablations and many cardioversions in the past. The patient got up to go to the bathroom and middle of the night and then had a dark stool. He essentially crawl back to bed and repeated these episodes 2 more times. The patient became quite lightheaded and ultimately came to the hospital where he was found to be orthostatic, have melena on rectal exam, and have a drop in his baseline hemoglobin. The patient denies any abdominal pain but was having a fair amount of lower suprapubic pressure prior to each evacuation of melena. 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 He arrives in the unit comfortable when lying flat but continues to have symptoms of dyspnea and palpitations if he sits up or tries to move. He denies any chest pain or pressure. He does have a history of an LAD stent and mild coronary artery disease to multiple other vessels. He denies abuse of anti-inflammatories but does take aspirin daily for CAD. Discharge Providers Provider Date of admission: 09/21/23 14:24 Discharge Date: 09/24/23 Primary care physician: Gertrude Garcia MD Consults: Surgery for EGD. Discharge provider: Elpidio Nelson MD Summary Hospital Course Discharge Diagnosis: 1. Melanotic bleed, present on admission and improving. 2. Acute blood loss anemia, present on admission and active. 3. CAD, present on admission and stable. 4. Paroxysmal atrial fibrillation, atrial flutter. Not present on admission and stable. 5. DM 2, present on admission and stable. Hospital Course: He was admitted with melena and required transfusion. The patient was seen by surgery and underwent EGD revealing gastritis. He was treated with Protonix 40 b.i.d.. The patient stabilized his hemoglobin and had improvement of his melena. He was able to ambulate without feeling dizzy or weak. He was felt to be stable for discharge on September 23 with close follow up and repeat hemoglobin. Status at Discharge Cognitive/behavioral status at discharge: oriented Functional status at discharge: independent ambulation Overall status at discharge: patient is progressing back to baseline Time Spent with Patient Time spent: Greater than 30 minutes Exam Vital Signs (past 8 hours): - 09/24/23 04:33 09/24/23 04:33 09/24/23 08:00 Temperature 98.0 F 97.2 F L Pulse Rate 72 75 Respiratory Rate 16 16 Blood Pressure 130/59 L 148/69 H Pulse Oximetry 98 98 Oxygen Flow Rate 0 0 09/24/23 09:26 Temperature Pulse Rate 75 Respiratory Rate Blood Pressure 148/69 H Pulse Oximetry Oxygen Flow Rate Oxygen Delivery Method Room Air Oxygen Flow Rate 0 Narrative Exam Narrative: NAD, alert and oriented. Fluent speech. Lungs are clear, normal rate and effort. Heart is regular, no murmur gallop or rub. Abdomen is soft, non distended. Extremities are free of edema. Objective Labs 09/24/23 04:26 09/24/23 04:26 Labs: Laboratory Results - last 24 hr 09/21/23 09/23/23 09/24/23 11:12 10:05 04:26 WBC 6.7 RBC 2.54 L Hgb 7.8 L 8.0 L Hct 22.8 L MCV 89.6 MCH 31.4 MCHC 35.1 RDW 13.5 Plt Count 146 L Neut % (Auto) 62.2 Lymph % (Auto) 24.7 L [place] % (Auto) 9.0 Eos % (Auto) 3.5 Baso % (Auto) 0.6 Neut # (Auto) 4200 Lymph # (Auto) 1700 [place] # (Auto) 600 Eos # (Auto) 200 Baso # (Auto) 0 Sodium 136 L Potassium 4.1 Chloride 110 H Carbon Dioxide 26 BUN 20 Creatinine 1.13 Estimated GFR > 60 BUN/Creatinine Ratio 17.7 Glucose 139 H Calcium 9.1 Blood Type A Positive Antibody Screen Negative Crossmatch See Detail PFSH Social History household members: spouse Smoking Status: Former smoker alcohol intake: current Discharge Assessment & Plan Assessment and Plan Assessment: 1. Melanotic bleed, present on admission and improving. 2. Acute blood loss anemia, present on admission and active. 3. CAD, present on admission and stable. 4. Paroxysmal atrial fibrillation, atrial flutter. Not present on admission and stable. 5. DM 2, present on admission and stable. Plan of Treatment: Stable for discharge home on September 23 with Protonix 40 b.i.d., anticipate a 3 month course. Follow up with PCP within 5-6 days with repeat hemoglobin. Monitor for evidence of increased bleeding which would include dyspnea, dyspnea on exertion, chest pain, fatigue, or dizziness as well as rectal bleeding or melena. Discharge Plan Discharge Plan Patient Disposition: Home Provider Discharge Comment: Stable for discharge home. Your hemoglobin is remaining stable. We will have you follow up with her primary care within the next 5 days for repeat hemoglobin. Continue to monitor your stools. Discharge orders & Medications Prescriptions: New pantoprazole 40 mg Tablet,Delayed Release (Dr/Ec) 40 mg PO BID Qty: 60 2RF Continued [DHEA] 50 mg PO QDAY Qty: 0 metoprolol succinate 50 MG tablet extended release 24 hr 50 mg PO BID Qty: 0 [PREGNENOLONE] 100 mg PO QDAY Qty: 0 gabapentin [Neurontin] 300 MG capsule 900 mg PO BID Qty: 0 lutein-zeaxanthin 1 EACH capsule 1 cap PO QDAY Qty: 0 [PHOSPHATIDYL SERINE] 100 mg PO HS Qty: 0 [ULTRA VITAMIN K] 1 tab PO QDAY Qty: 0 [VINPOCETINE] 1 tab PO HS Qty: 0 dofetilide 250 MCG capsule 500 mcg PO BID Qty: 0 simvastatin 20 MG tablet 20 mg PO BEDTIME Qty: 0 lisinopril 30 mg Tablet 30 mg PO BEDTIME metoprolol succinate 25 mg tablet extended release 24 hr 25 mg PO DAILY PRN (Reason: Palpitations) Qty: 30 2RF nitroglycerin 0.4 mg tablet, sublingual 0.4 mg sublingual Q5-15M PRN (Reason: chest pain) Qty: 10 0RF Rx Instructions: do not exceed 3 doses per episode aspirin 81 mg Tablet 81 mg PO DAILY thyroid (pork) [Niva Thyroid] 120 mg tablet 120 mg PO BID zolpidem 10 mg tablet 10 mg PO ONCE PM PRN (Reason: Insomnia) Follow up/Referrals: Gertrude Garcia MD [Primary Care Provider] - Discharge Health Status Multidrug resistant organism: No MDRO Diet/Activity/Treatments Diet: Diet as Tolerated Activity: As tolerated. Visit Report/Discharge Packet Instructions: DI for Gastritis, DI for Esophagitis Stand Alone Forms: Patient Portal/API Discharge Data Primary Care Provider: Gertrude Garcia Quality VTE Deep Vein Thrombosis/Pulmonary Embolism Present on Admission: No
--- NOTE | 2023-09-24 11:14 | CM.DPC ---
DCP Cont. Reviewed EMR and team rounds for status updates. Pt has been medically cleared and will d/c home in the next few hours, his will transport him home. No further DCP needs identified at this time. .
== END 2023-09-24 11:50 | disposition home or self-care (01) | DRG 378 ==
LOC: ED 13:55 → AC 09-22 08:25
PROVIDERS: Student in an Organized Health Care Education/Training Program; Surgery; Admitting Provider Hospitalist; Emergency Provider Emergency Medicine; Family Provider Internal Medicine; PCP Internal Medicine; Referring Provider Emergency Medicine; Visit Provider Hospitalist
PROC: 0DJ08ZZ Inspection of Upper Intestinal Tract, Via Natural or Artificial Opening Endoscopic (ICD-10-PCS; CPT 43235; principal; 2023-09-22 09:00)
DX: K29.71 Gastritis, unspecified, with bleeding (principal); D62 Acute posthemorrhagic anemia; I48.92 Unspecified atrial flutter; K29.81 Duodenitis with bleeding; I25.10 Atherosclerotic heart disease of native coronary artery without angina pectoris; I48.0 Paroxysmal atrial fibrillation; E11.9 Type 2 diabetes mellitus without complications; Z79.01 Long term (current) use of anticoagulants; Z87.891 Personal history of nicotine dependence; Z95.5 Presence of coronary angioplasty implant and graft
CPT/HCPCS: 36415; 36430; 74177; 80048; 80053; 81003; 85014; 85018; 85025; 85610; 85730; 86850; 86900; 86901; 96374; 99284; 99285; P9016; C9113; J1200; J2704; Q9967

== ENCOUNTER 2023-10-09 19:42 | Emergency (ER) | payer MEDICARE, OTHER, SELFPAY ==
[2023-09-21 14:34] VITALS: BMI 29.6
[2023-10-09 20:02] VITALS: BP 154/72; PULSE 96; RESP 18; TEMP 36.8; O2SAT 99; BMI 29.5
--- NOTE | 2023-10-09 20:10 | DI.RAD.S_ITS ---
PROCEDURE: XR CHEST 1V INDICATIONS: chest pain TECHNIQUE: One view of the chest was acquired. COMPARISON: [facility], CR, XR CHEST 1V, 07/01/2023, 10:24. FINDINGS: Surgical changes and devices: None. Lungs and pleura: Lungs are clear. No pleural effusions or pneumothorax. Mediastinum: Mediastinal contours appear normal. Heart size is normal. Bones and chest wall: No suspicious bony lesions. Overlying soft tissues appear unremarkable. IMPRESSION: No acute cardiopulmonary abnormality is seen. Dictated by: Caitlyn Dang M.D. on 10/09/2023 at 20:29 Approved by: Caitlyn Dang M.D. on 10/09/2023 at 20:30
[2023-10-09 20:52] LABS: Add Manual Diff / Slide Review NO; Basophils Absolute Auto 0 /uL (0-100); Basophils Percent Auto 0.5 % (0-2); Eosinophils Absolute Auto 100 /uL (0-450); Eosinophils Percent Auto 2.2 % (2-4); Hematocrit 29.8 % (41-53); Hemoglobin 10.3 g/dL (13.5-17.5); Lymphocytes Absolute Auto 1400 /uL (1100-4500); Lymphocytes Percent Auto 20.9 % (25-40); Mean Corpuscular HGB Conc 34.5 % (30-36); Mean Corpuscular Hemoglobin 31.4 PG (26-34); Mean Corpuscular Volume 90.8 fL (80-100); Monocytes Absolute Auto 900 /uL (0-900); Monocytes Percent Auto 13.5 % (3-14); Neutrophils Absolute Auto 4200 /uL (1500-7000); Neutrophils Percent Auto 62.9 % (50-75); Platelet Count 194 X10^3/uL (150-400); Prothrombin Time 11.1 SECONDS (9.4-12.5); Red Blood Cell Count 3.28 X10^6/uL (4.5-5.9); Red Cell Distribution Width 13.9 % (11.6-14.8); White Blood Cell Count 6.7 X10^3/uL (4.5-11.0)
[2023-10-09 20:54] LABS: PTT Partial Thromboplastin Tim 32 SECONDS (25.1-36.5)
[2023-10-09 20:57] LABS: Alanine Aminotransferase 29 IU/L (<50); Albumin 4.1 g/dL (3.5-5.0); Albumin Globulin Ratio 1.6 (1.0-2.8); Alkaline Phosphatase 56 U/L (38-126); Aspartate Aminotransferase 34 IU/L (17-59); Bilirubin Total 0.5 mg/dL (0.2-1.3); Blood Urea Nitrogen 23 mg/dL (9-20); Calcium 9.9 mg/dL (8.4-10.2); Carbon Dioxide 26 mmol/L (22-32); Chloride 104 mmol/L (98-107); Creatine Kinase 293 U/L (55-170); Estimated Glomerular Filt Rate 47 mL/min (>60); Globulin 2.6 g/dL (1.7-4.1); Glucose 116 mg/dL (80-110); HEMOLYSIS < 15 (0-50); Lipase 154 U/L (23-300); Magnesium 2.1 mg/dL (1.6-2.3); Potassium 4.3 mmol/L (3.4-5.1); Sodium 135 mmol/L (137-145); Total Protein 6.7 g/dL (6.3-8.2)
[2023-10-09 21:08] LABS: Troponin I < 0.012 ng/mL (0.01-0.034)
--- NOTE | 2023-10-09 21:32 | ED_ITS ---
HPI - Arrhythmia/Palpitations General Chief Complaint: Arrhythmia/Palpitations Stated Complaint: recurrent arythmia Time Seen by Provider: 10/09/23 20:45 Source: patient Mode of arrival: Ambulatory History of Present Illness HPI narrative: Patient is a 77-year-old male. Has had history of atrial fibrillation. Has had multiple ablations in the past. Is on metoprolol twice a day and also lisinopril. Is here for evaluation because he has had increasing palpitations and irregular heart rhythms at home for the past couple days. He has been taking all of his medications. He has not on anticoagulation. He has had issues with a GI bleed and also anemia. He also having some achiness in his chest. No shortness of breath. Related Data Home Medications Medication Instructions Recorded Confirmed [DHEA] 50 mg PO QDAY ##0 01/10/17 09/21/23 [PHOSPHATIDYL SERINE] 100 mg PO HS ##0 01/10/17 09/21/23 [PREGNENOLONE] 100 mg PO QDAY ##0 01/10/17 09/21/23 [ULTRA VITAMIN K] 1 tab PO QDAY ##0 01/10/17 09/21/23 [VINPOCETINE] 1 tab PO HS ##0 01/10/17 09/21/23 gabapentin 300 mg capsule 900 mg PO BID ##0 01/10/17 09/21/23 (Neurontin) lutein 25 mg-zeaxanthin 5 mg 1 cap PO QDAY ##0 01/10/17 09/21/23 capsule metoprolol succinate 50 mg 50 mg PO BID ##0 01/10/17 09/21/23 tablet,extended release 24 hr dofetilide 250 mcg capsule 500 mcg PO BID ##0 06/02/17 09/21/23 simvastatin 20 mg tablet 20 mg PO BEDTIME ##0 06/02/17 09/21/23 lisinopril 30 mg tablet 30 mg PO BEDTIME 05/04/20 09/21/23 aspirin 81 mg tablet 81 mg PO DAILY 07/01/23 09/21/23 thyroid (pork) 120 mg tablet (Niva 120 mg PO BID 07/01/23 09/21/23 Thyroid) zolpidem 10 mg tablet 10 mg PO ONCE PM PRN Insomnia 07/01/23 09/21/23 Previous Rx's Medication Instructions Recorded nitroglycerin 0.4 mg sublingual 0.4 mg sublingual Q5-15M PRN chest 10/04/22 tablet pain #10 tabs metoprolol succinate 25 mg 25 mg PO DAILY PRN Palpitations 08/30/23 tablet,extended release 24 hr #30 tabs pantoprazole 40 mg tablet,delayed 40 mg PO BID #60 tabs 09/24/23 release Allergies Allergy/AdvReac Type Severity Reaction Status Date / Time No Known Drug Allergies Allergy Verified 07/01/23 12:01 Review of Systems Review of Systems ROS Unobtainable: All systems reviewed & are unremarkable except as noted in HPI and below Patient History Social History household members: spouse Smoking Status: Former smoker alcohol intake: current Smoking Status: Former smoker alcohol intake frequency: a few times a week Substance Use Type: does not use Exam Initial Vital Signs Initial Vital Signs: Vital Signs Temperature 98.2 F 10/09/23 20:02 Pulse Rate 96 H 10/09/23 20:02 Respiratory Rate 18 10/09/23 20:02 Blood Pressure 154/72 H 10/09/23 20:02 Pulse Oximetry 99 10/09/23 20:02 Oxygen Delivery Method Room Air 10/09/23 20:02 Const General: cooperative, comfortable and No ill appearing HENMT Head: normal to inspection and normocephalic Resp Effort & Inspection: normal respiratory effort Auscultation: clear to auscultation bilaterally Cardio Rate: regular rate Rhythm: abnormal rhythm Skin General: no rashes or lesions noted Neuro General: patient alert, patient awake, patient oriented x3 and moves all extremities Extrem General: No edema Course Orders Ordered: ED Orders 10/09/23 20:10 XR chest 1V Stat EKG-12 Lead Stat 10/09/23 20:34 Complete Blood Count AUTO DIFF Stat Comprehensive Metabolic Panel Stat Lipase Stat Magnesium Stat PTT Partial Thromboplastin Javy Stat Prothrombin Time INR Stat Troponin & CK Cardiac Panel Stat 10/09/23 22:29 Troponin & CK Cardiac Panel Stat Discontinued Medications Aspirin (Aspirin 81 Mg Chew Tab) 324 mg PO NOW ONE Stop: 10/09/23 20:11 Last Admin: 10/09/23 21:43 Dose: Not Given Documented By: THELMA Vital Signs Vital signs: Vital Signs - 8 hr 10/09/23 20:02 10/09/23 23:03 10/09/23 23:03 Temperature 98.2 F Pulse Rate 96 H 97 H Respiratory Rate 18 20 Blood Pressure 154/72 H 116/76 Pulse Oximetry 99 97 Oxygen Delivery Method Room Air Room Air 10/09/23 23:30 10/09/23 23:30 Temperature Pulse Rate 94 H Respiratory Rate 13 Blood Pressure 113/57 L Pulse Oximetry 98 Oxygen Delivery Method Room Air MDM - Arrhythmia/Palpitations Medical Records Attestation: I reviewed the patient's medical records. Lab Data Attestation: I reviewed the patient's lab results. 10/09/23 20:34 10/09/23 20:34 Labs: Lab Results 10/09/23 10/09/23 Range/Units 20:34 22:29 WBC 6.7 (4.5-11.0) X10^3/uL RBC 3.28 L (4.5-5.9) X10^6/uL Hgb 10.3 L (13.5-17.5) g/dL Hct 29.8 L (41-53) % MCV 90.8 (80-100) fL MCH 31.4 (26-34) PG MCHC 34.5 (30-36) % RDW 13.9 (11.6-14.8) % Plt Count 194 (150-400) X10^3/uL Neut % (Auto) 62.9 (50-75) % Lymph % (Auto) 20.9 L (25-40) % [place] % (Auto) 13.5 (3-14) % Eos % (Auto) 2.2 (2-4) % Baso % (Auto) 0.5 (0-2) % Neut # (Auto) 4200 (2607-2693) /uL Lymph # (Auto) 1400 (9874-2562) /uL [place] # (Auto) 900 (0-900) /uL Eos # (Auto) 100 (0-450) /uL Baso # (Auto) 0 (0-100) /uL PT 11.1 (9.4-12.5) SECONDS INR 1.0 (0.9-1.3) APTT 32 (25.1-36.5) SECONDS Sodium 135 L (137-145) mmol/L Potassium 4.3 (3.4-5.1) mmol/L Chloride 104 (98-107) mmol/L Carbon Dioxide 26 (22-32) mmol/L BUN 23 H (9-20) mg/dL Creatinine 1.53 H (0.66-1.25) mg/dL Estimated GFR 47 L (>60) mL/min BUN/Creatinine Ratio 15.0 (6-22) Glucose 116 H (80-110) mg/dL Calcium 9.9 (8.4-10.2) mg/dL Magnesium 2.1 (1.6-2.3) mg/dL Total Bilirubin 0.5 (0.2-1.3) mg/dL AST 34 (17-59) IU/L ALT 29 (<50) IU/L Alkaline Phosphatase 56 (38-126) U/L Total Creatine Kinase 293 H 257 H (55-170) U/L Troponin I < 0.012 < 0.012 (0.01-0.034) ng/mL Total Protein 6.7 (6.3-8.2) g/dL Albumin 4.1 (3.5-5.0) g/dL Globulin 2.6 (1.7-4.1) g/dL Albumin/Globulin Ratio 1.6 (1.0-2.8) Lipase 154 (23-300) U/L Imaging Data Chest x-ray: Radiologist's Impresson: PROCEDURE: XR CHEST 1V INDICATIONS: chest pain TECHNIQUE: One view of the chest was acquired. COMPARISON: [facility], , XR CHEST 1V, 07/01/2023, 10:24. FINDINGS: Surgical changes and devices: None. Lungs and pleura: Lungs are clear. No pleural effusions or pneumothorax. Mediastinum: Mediastinal contours appear normal. Heart size is normal. Bones and chest wall: No suspicious bony lesions. Overlying soft tissues appear unremarkable. IMPRESSION: No acute cardiopulmonary abnormality is seen. MDM Narrative Medical decision making narrative: Patient is having occasional PVCs but actually having frequent PACs in a bigeminy pattern. He has not in atrial fibrillation. There was no indication for cardioversion. No indication for anticoagulation. His electrolytes are unremarkable. Troponin is negative x2. Chest x-ray shows no signs of heart failure. I discuss this with the patient. 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 Patient is safe for discharge home. He was given return precautions. He expressed understanding. Discharge Plan Departure Patient Disposition: Home Clinical Impression: PAC (premature atrial contraction) Instructions: Arrhythmias Activity Restrictions/Additional Instructions: I recommend that you continue to take all of your medications as directed. You can consider increasing your long-acting metoprolol to 100 mg twice a day. Also recommend you contact your primary doctor/dramatic art teacher for a follow-up to discuss the indications of a Holter monitor. Return to the emergency department for new symptoms. Prescriptions: No Action [DHEA] 50 mg PO QDAY Qty: 0 metoprolol succinate 50 MG tablet extended release 24 hr 50 mg PO BID Qty: 0 [PREGNENOLONE] 100 mg PO QDAY Qty: 0 gabapentin [Neurontin] 300 MG capsule 900 mg PO BID Qty: 0 lutein-zeaxanthin 1 EACH capsule 1 cap PO QDAY Qty: 0 [PHOSPHATIDYL SERINE] 100 mg PO HS Qty: 0 [ULTRA VITAMIN K] 1 tab PO QDAY Qty: 0 [VINPOCETINE] 1 tab PO HS Qty: 0 dofetilide 250 MCG capsule 500 mcg PO BID Qty: 0 simvastatin 20 MG tablet 20 mg PO BEDTIME Qty: 0 lisinopril 30 mg Tablet 30 mg PO BEDTIME metoprolol succinate 25 mg tablet extended release 24 hr 25 mg PO DAILY PRN (Reason: Palpitations) Qty: 30 2RF nitroglycerin 0.4 mg tablet, sublingual 0.4 mg sublingual Q5-15M PRN (Reason: chest pain) Qty: 10 0RF Rx Instructions: do not exceed 3 doses per episode aspirin 81 mg Tablet 81 mg PO DAILY thyroid (pork) [Niva Thyroid] 120 mg tablet 120 mg PO BID zolpidem 10 mg tablet 10 mg PO ONCE PM PRN (Reason: Insomnia) pantoprazole 40 mg Tablet,Delayed Release (Dr/Ec) 40 mg PO BID Qty: 60 2RF Referrals: Gertrude Garcia MD [Primary Care Provider] - Stand Alone Forms: Patient Portal/API
[2023-10-09 22:43] LABS: Creatine Kinase 257 U/L (55-170)
[2023-10-09 22:55] LABS: Troponin I < 0.012 ng/mL (0.01-0.034)
[2023-10-09 23:03] VITALS: BP 116/76; PULSE 97; RESP 20; O2SAT 97
[2023-10-09 23:30] VITALS: BP 113/57; PULSE 94; RESP 13; O2SAT 98
== END 2023-10-10 00:02 | disposition home or self-care (01) ==
PROVIDERS: Emergency Provider Emergency Medicine; Family Provider Internal Medicine; PCP Internal Medicine
DX: I49.1 Atrial premature depolarization (principal); R07.9 Chest pain, unspecified
CPT/HCPCS: 36415; 71045; 80053; 82550; 83690; 83735; 84484; 85025; 85610; 85730; 93005; 93010; 99284

== ENCOUNTER 2023-12-05 11:54 | Emergency (ER) | payer MEDICARE, OTHER, SELFPAY ==
[2023-09-21 14:34] VITALS: BMI 29.6
[2023-12-05] VITALS (20 sets, daily range): BP systolic 113–178; BP diastolic 57–83; PULSE 49–65; RESP 9–28; TEMP 36.6; O2SAT 94–100; BMI 29.7
--- NOTE | 2023-12-05 11:58 | DI.CT.S_ITS ---
PROCEDURE: CT HEAD/BRAIN WO CON INDICATIONS: new left visual field deficits TECHNIQUE: Noncontrast 4.5 mm thick angled axial sections acquired from the foramen magnum to the vertex, with coronal and sagittal reformats. For radiation dose reduction, the following was used: automated exposure control, adjustment of mA and/or kV according to patient size. COMPARISON: [facility], CT, CT ANGIO HEAD AND NECK, 12/05/2023, 12:54. FINDINGS: Image quality: Diagnostic. CSF spaces: Basal cisterns are patent. No extra-axial fluid collections. The ventricles are symmetric in size and shape. Brain: No intracranial bleeds or masses. There is cerebral volume loss for age, with resultant ventricular and sulcal prominence. No significant abnormalities of the occipital lobes or the optic chiasm can be seen. There are periventricular and deep white matter chronic small vessel ischemic changes. There is intracranial internal carotid artery atherosclerosis. Skull and face: Calvarium and visualized facial bones appear intact, without suspicious lesions. Sinuses: Visualized sinuses and mastoids are clear. IMPRESSION: No imaging explanation is found for this patient's presenting symptoms. No acute intracranial hemorrhage is seen. No acute intracranial process is seen. Dictated by: Moiz Cruz M.D. on 12/05/2023 at 12:14 Approved by: Moiz Cruz M.D. on 12/05/2023 at 12:15
--- NOTE | 2023-12-05 12:00 | DI.MRI.S_ITS ---
PROCEDURE: MR HEAD/BRAIN WO CON INDICATIONS: new left visual field deficits TECHNIQUE: Non-contrast axial T1 spin echo, axial T2 fast spin echo, sagittal and axial FLAIR, coronal T2 fast spin echo, axial gradient echo, axial diffusion and ADC through the brain. COMPARISON: [facility], CT, CT HEAD/BRAIN WO CON, 12/05/2023, 12:54. [facility], CT, CT ANGIO HEAD AND NECK, 12/05/2023, 12:54. FINDINGS: Image quality: Excellent. CSF spaces: Ventricles appear symmetric in size and shape. Basal cisterns are patent. No extra-axial fluid collections. Brain: No intracranial bleeds or mass effects. There is cerebral volume loss for age. There are periventricular and deep white matter chronic small vessel ischemic changes. Brainstem appears normal. Diffusion-weighted images show no acute infarct. No chronic ischemic insults. Normal intravascular flow voids are present. Skull and face: Calvarial bone marrow is normal in signal. Orbits are normal. Note is made of bilateral lens replacements. Sinuses: Sinuses and mastoids are clear. IMPRESSION: No findings of acute or subacute infarction can be seen. Dictated by: Moiz Cruz M.D. on 12/05/2023 at 13:55 Approved by: Moiz Cruz M.D. on 12/05/2023 at 13:56
--- NOTE | 2023-12-05 12:00 | DI.CT.S_ITS ---
PROCEDURE: CT ANGIO HEAD AND NECK INDICATIONS: new left visual field deficits TECHNIQUE: After the administration of intravenous contrast, 1 mm thick sections acquired from the aortic arch through the [place] of [place]. 3-dimensional pkmafwa-isatnnqqf-wwevvdwwye (MIP) and/or volume rendering reformats were acquired of the central intracranial vasculature and neck separately. For radiation dose reduction, the following was used: automated exposure control, adjustment of mA and/or kV according to patient size. COMPARISON: [facility], CT, CT HEAD/BRAIN WO CON, 12/05/2023, 12:54. FINDINGS: Image quality: There is artifact associated with the metallic hardware. Artifact from the metallic hardware is reduced by metal reconstruction algorithm. Limited by bolus timing, with venous contamination. BRAIN: CSF spaces: Ventricles are normal in size and shape. Basal cisterns are patent. No extra-axial fluid collections. Brain: No significant abnormality of the brain can be seen. Skull and face: Calvarium and facial bones appear intact, without suspicious lesions. Orbits appear normal. Sinuses: Sinuses and mastoids are clear. HEAD CT ANGIOGRAPHY: Anterior circulation: Intracranial internal carotid arteries are normal in size and flow. The flow within the paired anterior cerebral arteries is normal and symmetric. The flow within the middle cerebral arteries is normal and symmetric. The anterior communicating artery is seen. No aneurysms are seen. Posterior circulation: Visualized portions of the vertebral arteries demonstrate normal caliber, and join to form a normal appearing basilar artery. Flow within the posterior cerebral arteries is normal and symmetric. No aneurysms are seen. NECK CT ANGIOGRAPHY: Carotid system: The great vessels demonstrate a conventional anatomy as they arise from the aortic arch. The origins of the common carotid arteries appear patent. The common carotid arteries demonstrate normal caliber and courses. The bifurcation regions are both widely patent. The internal carotid arteries demonstrate normal calibers and courses. Posterior circulation: The origins of the vertebral arteries both appear widely patent. The more superior extracranial portions of both vertebral arteries also demonstrate normal courses and calibers. The left vertebral artery is dominant to the right. Soft tissues: Visualized neck soft tissues demonstrate no suspicious abnormalities. Bones: No suspicious bony lesions. Visualized cervical spine appears normally aligned. There is at least moderate cervical spine degenerative change seen, which is worst inferiorly. IMPRESSION: No significant intracranial arterial abnormality is seen. No significant abnormality is seen within the arteries of the neck. Any quantitative measurements of stenosis were performed using NASCET criteria. Dictated by: Moiz Cruz M.D. on 12/05/2023 at 12:16 Approved by: Moiz Cruz M.D. on 12/05/2023 at 12:18
[2023-12-05 12:28] LABS: Add Manual Diff / Slide Review NO; Basophils Absolute Auto 0 /uL (0-100); Basophils Percent Auto 0.5 % (0-2); Eosinophils Absolute Auto 100 /uL (0-450); Eosinophils Percent Auto 2.1 % (2-4); Hematocrit 37.6 % (41-53); Hemoglobin 12.5 g/dL (13.5-17.5); Lymphocytes Absolute Auto 1300 /uL (1100-4500); Lymphocytes Percent Auto 22.4 % (25-40); Mean Corpuscular HGB Conc 33.2 % (30-36); Mean Corpuscular Hemoglobin 28.5 PG (26-34); Mean Corpuscular Volume 85.9 fL (80-100); Monocytes Absolute Auto 700 /uL (0-900); Monocytes Percent Auto 11.6 % (3-14); Neutrophils Absolute Auto 3600 /uL (1500-7000); Neutrophils Percent Auto 63.4 % (50-75); Platelet Count 181 X10^3/uL (150-400); Red Blood Cell Count 4.38 X10^6/uL (4.5-5.9); Red Cell Distribution Width 14.1 % (11.6-14.8); White Blood Cell Count 5.7 X10^3/uL (4.5-11.0)
[2023-12-05 12:36] LABS: Prothrombin Time 11.3 SECONDS (9.4-12.5)
[2023-12-05 12:39] LABS: PTT Partial Thromboplastin Tim 34 SECONDS (25.1-36.5)
[2023-12-05 12:42] LABS: Alanine Aminotransferase 37 IU/L (<50); Albumin 4.6 g/dL (3.5-5.0); Albumin Globulin Ratio 1.7 (1.0-2.8); Alkaline Phosphatase 63 U/L (38-126); Aspartate Aminotransferase 41 IU/L (17-59); BUN Creatinine Ratio 20.9 (6-22); Bilirubin Total 0.4 mg/dL (0.2-1.3); Blood Urea Nitrogen 24 mg/dL (9-20); Calcium 9.7 mg/dL (8.4-10.2); Carbon Dioxide 29 mmol/L (22-32); Chloride 104 mmol/L (98-107); Creatine Kinase 375 U/L (55-170); Estimated Glomerular Filt Rate > 60 mL/min (>60); Ethanol (ETOH) < 10 mg/dL; Globulin 2.7 g/dL (1.7-4.1); Glucose 104 mg/dL (80-110); HEMOLYSIS < 15 (0-50); Potassium 4.4 mmol/L (3.4-5.1); Sodium 136 mmol/L (137-145); Total Protein 7.3 g/dL (6.3-8.2)
[2023-12-05 12:53] LABS: Troponin I < 0.012 ng/mL (0.01-0.034)
--- NOTE | 2023-12-05 13:06 | ED_ITS ---
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 History of classic migraines for many years, usually with blurred vision to both eyes visual badillo, lasting a few minutes, not necessarily progressing to headaches, typical pattern until about July when he had an episodic loss of vision to portion of the visual field in the left eye, no problems seeing out of the right eye, lasting about 30 minutes, to these episodes happened in July, 2 these episodes happened in August, then 2 days ago this also happened. He was evaluated in the office of Dr. Guevara ophthalmology, who dilated his eyes this morning, and mapped out visual field deficit in the left eye inferior region medial and lateral. Patient has history of atrial fibrillation, prior cardioversion, does not believe himself to be in atrial fibrillation, no palpitations or irregular heartbeat sensation. No weakness to face arm or leg. No difficulty with speech or swallowing. No cognitive problems known. No injury or trauma. He does not take chronic blood thinner medications, including aspirin, as he sided he had a major gastrointestinal hemorrhage August 2023. He is referred here for further evaluation of possible stroke On Anticoagulants: No Related Data Home Medications Medication Instructions Recorded Confirmed [DHEA] 50 mg PO QDAY ##0 01/10/17 09/21/23 [PHOSPHATIDYL SERINE] 100 mg PO HS ##0 01/10/17 09/21/23 [PREGNENOLONE] 100 mg PO QDAY ##0 01/10/17 09/21/23 [ULTRA VITAMIN K] 1 tab PO QDAY ##0 01/10/17 09/21/23 [VINPOCETINE] 1 tab PO HS ##0 01/10/17 09/21/23 gabapentin 300 mg capsule 900 mg PO BID ##0 01/10/17 09/21/23 (Neurontin) lutein 25 mg-zeaxanthin 5 mg 1 cap PO QDAY ##0 01/10/17 09/21/23 capsule metoprolol succinate 50 mg 50 mg PO BID ##0 01/10/17 09/21/23 tablet,extended release 24 hr dofetilide 250 mcg capsule 500 mcg PO BID ##0 06/02/17 09/21/23 simvastatin 20 mg tablet 20 mg PO BEDTIME ##0 06/02/17 09/21/23 lisinopril 30 mg tablet 30 mg PO BEDTIME 05/04/20 09/21/23 aspirin 81 mg tablet 81 mg PO DAILY 07/01/23 09/21/23 thyroid (pork) 120 mg tablet (Niva 120 mg PO BID 07/01/23 09/21/23 Thyroid) zolpidem 10 mg tablet 10 mg PO ONCE PM PRN Insomnia 07/01/23 09/21/23 Previous Rx's Medication Instructions Recorded nitroglycerin 0.4 mg sublingual 0.4 mg sublingual Q5-15M PRN chest 10/04/22 tablet pain #10 tabs metoprolol succinate 25 mg 25 mg PO DAILY PRN Palpitations 08/30/23 tablet,extended release 24 hr #30 tabs pantoprazole 40 mg tablet,delayed 40 mg PO BID #60 tabs 09/24/23 release Allergies Allergy/AdvReac Type Severity Reaction Status Date / Time No Known Drug Allergies Allergy Verified 12/05/23 12:16 Review of Systems Review of Systems Narrative: as per HPI Hematologic/Lymphatic On Anticoagulants: No Patient History Social History household members: spouse Smoking Status: Former smoker alcohol intake: current Smoking Status: Former smoker alcohol intake frequency: a few times a week Substance Use Type: does not use Exam Narrative Exam Narrative: GENERAL: [] year old patient appears stated age. Well-developed patient, in mild distress. HEAD: Atraumatic. Normocephalic. EYES: Pupils equal round and reactive. Extraocular motions intact. No scleral icterus. No injection or drainage. ENT: Nose without bleeding, purulent drainage. Throat without erythema, tonsillar hypertrophy or exudate. Airway patent. NECK: Trachea midline. Non tender CARDIOVASCULAR: Regular rate and rhythm without murmurs, gallops, or rubs. RESPIRATORY: Clear to auscultation. Breath sounds equal bilaterally. No wheezes, rales, or rhonchi. GASTROINTESTINAL: Abdomen soft, non-tender, nondistended. EXTREMITIES: No edema or joint tenderness. BACK: Nontender without deformity or crepitance. No flank tenderness. NEURO: AOx3. Cranial nerves 2-12 normal. Motor 5/5 bilateral upper extremities. Motor 5/5 bilateral lower extremities. Good gnncgh-[id number] testing. Sensation intact to light touch all facial divisions, bilateral upper extremities, bilateral lower extremities. SKIN: No rash or erythema of visible areas Initial Vital Signs Initial Vital Signs: Vital Signs Temperature 97.9 F 12/05/23 12:12 Pulse Rate 64 12/05/23 12:12 Respiratory Rate 17 12/05/23 12:12 Blood Pressure 171/81 H 12/05/23 12:12 Pulse Oximetry 99 12/05/23 12:12 Oxygen Delivery Method Room Air 12/05/23 12:12 Course Orders Ordered: Discontinued Medications Sodium Chloride (Normal Saline 0.9%) 1,000 mls @ 150 mls/hr IV CONT ANDRÉS Last Infusion: 12/05/23 18:53 Dose: Infused Documented By: Infusion: 12/05/23 18:42 Dose: 0 mls/hr Documented By: Infusion: 12/05/23 15:36 Dose: 150 mls/hr Documented By: Infusion: 12/05/23 14:29 Dose: 0 mls/hr Documented By: Admin: 12/05/23 13:28 Dose: 150 mls/hr Documented By: DESI Vital Signs Vital signs: Vital Signs - 8 hr 12/05/23 15:20 12/05/23 15:22 12/05/23 15:30 Pulse Rate 56 L Respiratory Rate Blood Pressure 120/72 134/70 Pulse Oximetry 99 Oxygen Delivery Method 12/05/23 15:30 12/05/23 16:00 12/05/23 16:00 Pulse Rate 52 L 52 L Respiratory Rate 19 16 Blood Pressure 113/57 L Pulse Oximetry 99 98 Oxygen Delivery Method 12/05/23 16:30 12/05/23 16:31 12/05/23 16:31 Pulse Rate 51 L 49 L Respiratory Rate 13 16 Blood Pressure 135/69 Pulse Oximetry 99 98 Oxygen Delivery Method 12/05/23 17:00 12/05/23 17:00 12/05/23 17:23 Pulse Rate 53 L 49 L Respiratory Rate 12 21 Blood Pressure 142/67 H Pulse Oximetry 99 99 Oxygen Delivery Method Room Air 12/05/23 17:23 12/05/23 17:30 12/05/23 17:31 Pulse Rate 49 L Respiratory Rate 13 Blood Pressure 163/70 H 140/69 Pulse Oximetry 99 Oxygen Delivery Method 12/05/23 17:31 12/05/23 18:00 12/05/23 18:00 Pulse Rate 49 L 51 L Respiratory Rate 13 13 Blood Pressure 133/67 Pulse Oximetry 100 99 Oxygen Delivery Method 12/05/23 18:30 12/05/23 18:30 Pulse Rate 61 Respiratory Rate 14 Blood Pressure 178/83 H Pulse Oximetry 99 Oxygen Delivery Method MDM - Neuro Symptoms/Deficit Lab Data Attestation: I reviewed the patient's lab results. 12/05/23 12:18 12/05/23 12:18 Labs: Lab Results 12/05/23 12/05/23 12/05/23 Range/Units 12:18 17:18 17:18 WBC 5.7 (4.5-11.0) X10^3/uL RBC 4.38 L (4.5-5.9) X10^6/uL Hgb 12.5 L (13.5-17.5) g/dL Hct 37.6 L (41-53) % MCV 85.9 (80-100) fL MCH 28.5 (26-34) PG MCHC 33.2 (30-36) % RDW 14.1 (11.6-14.8) % Plt Count 181 (150-400) X10^3/uL Neut % (Auto) 63.4 (50-75) % Lymph % (Auto) 22.4 L (25-40) % [place] % (Auto) 11.6 (3-14) % Eos % (Auto) 2.1 (2-4) % Baso % (Auto) 0.5 (0-2) % Neut # (Auto) 3600 (3572-3567) /uL Lymph # (Auto) 1300 (9407-3354) /uL [place] # (Auto) 700 (0-900) /uL Eos # (Auto) 100 (0-450) /uL Baso # (Auto) 0 (0-100) /uL PT 11.3 (9.4-12.5) SECONDS INR 1.0 (0.9-1.3) APTT 34 (25.1-36.5) SECONDS Sodium 136 L (137-145) mmol/L Potassium 4.4 (3.4-5.1) mmol/L Chloride 104 (98-107) mmol/L Carbon Dioxide 29 (22-32) mmol/L BUN 24 H (9-20) mg/dL Creatinine 1.15 (0.66-1.25) mg/dL Estimated GFR > 60 (>60) mL/min BUN/Creatinine Ratio 20.9 (6-22) Glucose 104 (80-110) mg/dL Calcium 9.7 (8.4-10.2) mg/dL Total Bilirubin 0.4 (0.2-1.3) mg/dL AST 41 (17-59) IU/L ALT 37 (<50) IU/L Alkaline Phosphatase 63 (38-126) U/L Total Creatine Kinase 375 H (55-170) U/L Troponin I < 0.012 (0.01-0.034) ng/mL Total Protein 7.3 (6.3-8.2) g/dL Albumin 4.6 (3.5-5.0) g/dL Globulin 2.7 (1.7-4.1) g/dL Albumin/Globulin Ratio 1.7 (1.0-2.8) Urine Color Yellow Urine Appearance Clear Urine pH 7.0 Normal (4.5-8.0) Ur Specific Bennett <=1.005 (1.000-1.035) Urine Protein Negative (Negative) Urine Glucose (UA) Negative (Negative) g/dL Urine Ketones Negative (NEGATIVE) Urine Occult Blood Negative (Negative) Urine Nitrate Negative (Negative) Urine Bilirubin Negative (NEGATIVE) Urine Urobilinogen 0.2 (0.2) E.U./dL Ur Leukocyte Esterase Negative (NEGATIVE) Urine RBC None seen (0-5/HPF) Urine WBC None seen (0-5/HPF) Ur Squamous Epith Cells None seen (0-5/HPF) Urine Bacteria None seen (None) Ur Culture Indicated? Cult not indicated Vol Urine Centrifuged 10ml (spun) U Opiates 300ng/mL cut Negative (Negative) Ur Oxycodone Screen Negative (Negative) Urine Methadone Screen Negative (Negative) Ur Barbiturates Screen Negative (Negative) U Tricyclic Antidepress Negative (Negative) Ur Phencyclidine Scrn Negative (Negative) Ur Amphetamines Screen Negative (Negative) U Methamphetamines Scrn Negative (Negative) Ur MDMA Scrn (Ecstasy) Negative (Negative) U Benzodiazepines Scrn Negative (Negative) Urine Cocaine Screen Negative (Negative) U Marijuana (THC) Screen Negative (Negative) Urine Specific Bennett Normal (Normal) Ethyl Alcohol < 10 ( - 10) mg/dL Ur Creatinine Normal (Normal) Urine Dip Bedside Urine Glucose Negative Bedside Urine Bilirubin - Negative Bedside Urine Ketone - Negative Urine Specific Bennett 1.010 Bedside Urine Occult Blood - Negative Bedside Urine pH 6.5 Bedside Urine Protein - Negative Bedside Urine Urobilinogen - Negative Bedside Urine Nitrite - Negative Bedside Urine Leukocytes - Negative Esterase Imaging Data CT scan - head: Radiologist's Impression: [address] [address] [address] Scan Report Signed Patient: Froy Scanlon MR#: [id number] : 1945 Acct:[id number] Age/Sex: 77 / M Date of Service: 12/05/23 Loc: ED Accession Number: [id number] Procedure: CT head/brain wo con Ordering Provider: Michele Wallace MD PROCEDURE: CT HEAD/BRAIN WO CON INDICATIONS: new left visual field deficits TECHNIQUE: Noncontrast 4.5 mm thick angled axial sections acquired from the foramen magnum to the vertex, with coronal and sagittal reformats. For radiation dose reduction, the following was used: automated exposure control, adjustment of mA and/or kV according to patient size. COMPARISON: [facility], CT, CT ANGIO HEAD AND NECK, 12/05/2023, 12:54. FINDINGS: Image quality: Diagnostic. CSF spaces: Basal cisterns are patent. No extra-axial fluid collections. The ventricles are symmetric in size and shape. Brain: No intracranial bleeds or masses. There is cerebral volume loss for age, with resultant ventricular and sulcal prominence. No significant abnormalities of the occipital lobes or the optic chiasm can be seen. There are periventricular and deep white matter chronic small vessel ischemic changes. There is intracranial internal carotid artery atherosclerosis. Skull and face: Calvarium and visualized facial bones appear intact, without suspicious lesions. Sinuses: Visualized sinuses and mastoids are clear. IMPRESSION: No imaging explanation is found for this patient's presenting symptoms. No acute intracranial hemorrhage is seen. No acute intracranial process is seen. Dictated by: Moiz Cruz M.D. on 12/05/2023 at 12:14 Approved by: Moiz Cruz M.D. on 12/05/2023 at 12:15 CTA - brain/neck: Radiologist's Impression: [address] [address] [address] Scan Report Signed Patient: Froy Scanlon MR#: [id number] : 1945 Acct:[id number] Age/Sex: 77 / M Date of Service: 12/05/23 Loc: ED Accession Number: [id number] Procedure: CT angio head and neck Ordering Provider: Michele Wallace MD PROCEDURE: CT ANGIO HEAD AND NECK INDICATIONS: new left visual field deficits TECHNIQUE: After the administration of intravenous contrast, 1 mm thick sections acquired from the aortic arch through the [place] of [place]. 3-dimensional huxuqhb-dvhscswoy-hpimiubuki (MIP) and/or volume rendering reformats were acquired of the central intracranial vasculature and neck separately. For radiation dose reduction, the following was used: automated exposure control, adjustment of mA and/or kV according to patient size. COMPARISON: [facility], CT, CT HEAD/BRAIN WO CON, 12/05/2023, 12:54. FINDINGS: Image quality: There is artifact associated with the metallic hardware. Artifact from the metallic hardware is reduced by metal reconstruction algorithm. Limited by bolus timing, with venous contamination. BRAIN: CSF spaces: Ventricles are normal in size and shape. Basal cisterns are patent. No extra-axial fluid collections. Brain: No significant abnormality of the brain can be seen. Skull and face: Calvarium and facial bones appear intact, without suspicious lesions. Orbits appear normal. Sinuses: Sinuses and mastoids are clear. HEAD CT ANGIOGRAPHY: Anterior circulation: Intracranial internal carotid arteries are normal in size and flow. The flow within the paired anterior cerebral arteries is normal and symmetric. The flow within the middle cerebral arteries is normal and symmetric. The anterior communicating artery is seen. No aneurysms are seen. Posterior circulation: Visualized portions of the vertebral arteries demonstrate normal caliber, and join to form a normal appearing basilar artery. Flow within the posterior cerebral arteries is normal and symmetric. No aneurysms are seen. NECK CT ANGIOGRAPHY: Carotid system: The great vessels demonstrate a conventional anatomy as they arise from the aortic arch. The origins of the common carotid arteries appear patent. The common carotid arteries demonstrate normal caliber and courses. The bifurcation regions are both widely patent. The internal carotid arteries demonstrate normal calibers and courses. Posterior circulation: The origins of the vertebral arteries both appear widely patent. The more superior extracranial portions of both vertebral arteries also demonstrate normal courses and calibers. The left vertebral artery is dominant to the right. Soft tissues: Visualized neck soft tissues demonstrate no suspicious abnormalities. Bones: No suspicious bony lesions. Visualized cervical spine appears normally aligned. There is at least moderate cervical spine degenerative change seen, which is worst inferiorly. IMPRESSION: No significant intracranial arterial abnormality is seen. No significant abnormality is seen within the arteries of the neck. Any quantitative measurements of stenosis were performed using NASCET criteria. Dictated by: Moiz Cruz M.D. on 12/05/2023 at 12:16 Approved by: Moiz Cruz M.D. on 12/05/2023 at 12:18 MRI BRain: Radiologist's Impression: [address] [address] Magnetic Resonance Report Signed Patient: Froy Scanlon MR#: [id number] : 1945 Acct:[id number] Age/Sex: 77 / M Date of Service: 12/05/23 Loc: ED Accession Number: [id number] Procedure: MR head/brain wo con Ordering Provider: Michele Wallace MD PROCEDURE: MR HEAD/BRAIN WO CON INDICATIONS: new left visual field deficits TECHNIQUE: Non-contrast axial T1 spin echo, axial T2 fast spin echo, sagittal and axial FLAIR, coronal T2 fast spin echo, axial gradient echo, axial diffusion and ADC through the brain. COMPARISON: [facility], CT, CT HEAD/BRAIN WO CON, 12/05/2023, 12:54. [facility], CT, CT ANGIO HEAD AND NECK, 12/05/2023, 12:54. FINDINGS: Image quality: Excellent. CSF spaces: Ventricles appear symmetric in size and shape. Basal cisterns are patent. No extra-axial fluid collections. Brain: No intracranial bleeds or mass effects. There is cerebral volume loss for age. There are periventricular and deep white matter chronic small vessel ischemic changes. Brainstem appears normal. Diffusion-weighted images show no acute infarct. No chronic ischemic insults. Normal intravascular flow voids are present. Skull and face: Calvarial bone marrow is normal in signal. Orbits are normal. Note is made of bilateral lens replacements. Sinuses: Sinuses and mastoids are clear. IMPRESSION: No findings of acute or subacute infarction can be seen. Dictated by: Moiz Cruz M.D. on 12/05/2023 at 13:55 Approved by: Moiz Cruz M.D. on 12/05/2023 at 13:56 ECG Data Attestation: I personally reviewed and interpreted this ECG as follows: Interpretation: Sinus bradycardia with rate of 57, no obvious ST segment elevation or depression changes. NV 162, QRS 96, QTC 436. 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 Guevara, concern for left eye inferior visual field deficit. History of hypertension and atrial fibrillation in the past. Screening EKG shows sinus bradycardia, no atrial fibrillation or flutter. Labs pending. CT head noncontrast study ordered, CTA head and neck vessel studies ordered. Stroke protocol MRI ordered, no obvious contraindications, further review by cardiopulmonary technologist chief pending CT head noncontrast no acute changes, CTA head and neck vessels with no thrombosis or significant vascular narrowing. MRI stroke protocol brain study ordered, to be performed 2:30 p.m. MRI brain shows no acute or subacute infarction changes. Discussed again with Dr Guevara, could have had ophthalamic migraine. Consider aspirin, but patient declined due to recent severe GI bleeding in August 2023. [facility], given copies of his CT/CTA/MRI study reports. Follow-up with his PCP and with eye clinic advised. Return precautions discussed Critical Care Time Critical Care Time Critical Care Time: Yes Total Critical Care Time: 35 Attestation: The high probability of a clinically significant, sudden or life threatening deterioration of the [neurologic, cerebrovascular, cardiopulmonary] system(s) required my full and direct attention, intervention and personal management. The aggregate critical care time was [35] minutes. This time is in addition to time spent performing reported procedures but includes the following: [x] Data Review and interpretation [x] Patient assessment and monitoring of vital signs [x] Documentation [x] Medication orders and management Discharge Plan Departure Patient Disposition: Home Clinical Impression: Visual field defect Activity Restrictions/Additional Instructions: Left eye visual field defect, seen today by your duralumin mechanic Dr. Guevara, who referred you for further testing to look for possible stroke causes of symptoms. CT head noncontrast study was negative. CT angiogram of the head of the neck vessels were negative. MRI of the brain did not show any acute or subacute stroke changes. Case discussed with your duralumin mechanic Dr. Guevara, who wondered if he might be having ocular migraine like symptoms. You could consider use of antiplatelet medications, however you did relay that you had a very significant gastrointestinal bleed recently in August 2023, and reluctant to take blood thinner medications. This is understandable. Copies of your imaging reports given. Follow up with your eye doctor as needed. Return to this/nearest emergency department for any change worsening symptoms or any concerns prior Prescriptions: No Action [DHEA] 50 mg PO QDAY Qty: 0 metoprolol succinate 50 MG tablet extended release 24 hr 50 mg PO BID Qty: 0 [PREGNENOLONE] 100 mg PO QDAY Qty: 0 gabapentin [Neurontin] 300 MG capsule 900 mg PO BID Qty: 0 lutein-zeaxanthin 1 EACH capsule 1 cap PO QDAY Qty: 0 [PHOSPHATIDYL SERINE] 100 mg PO HS Qty: 0 [ULTRA VITAMIN K] 1 tab PO QDAY Qty: 0 [VINPOCETINE] 1 tab PO HS Qty: 0 dofetilide 250 MCG capsule 500 mcg PO BID Qty: 0 simvastatin 20 MG tablet 20 mg PO BEDTIME Qty: 0 lisinopril 30 mg Tablet 30 mg PO BEDTIME metoprolol succinate 25 mg tablet extended release 24 hr 25 mg PO DAILY PRN (Reason: Palpitations) Qty: 30 2RF nitroglycerin 0.4 mg tablet, sublingual 0.4 mg sublingual Q5-15M PRN (Reason: chest pain) Qty: 10 0RF Rx Instructions: do not exceed 3 doses per episode aspirin 81 mg Tablet 81 mg PO DAILY thyroid (pork) [Niva Thyroid] 120 mg tablet 120 mg PO BID zolpidem 10 mg tablet 10 mg PO ONCE PM PRN (Reason: Insomnia) pantoprazole 40 mg Tablet,Delayed Release (Dr/Ec) 40 mg PO BID Qty: 60 2RF Referrals: Gertrude Garcia MD [Primary Care Provider] - Stand Alone Forms: Patient Portal/API
[2023-12-05] MEDS: SODIUM CHLORIDE 0.9% 1,000 ML 150 ML IV (13:28)
[2023-12-05 17:32] LABS: Appearance Urine UA CLEAR; Bilirubin Urine UA NEGATIVE (NEGATIVE); Color Urine UA YELLOW; Glucose Urine UA NEGATIVE (Negative); Ketones Urine UA NEGATIVE (NEGATIVE); Leukocyte Esterase Urine UA NEGATIVE (NEGATIVE); Nitrite Urine UA NEGATIVE (Negative); Occult Blood Urine UA NEGATIVE (Negative); Protein Urine UA NEGATIVE (Negative); Specific Gravity Urine UA <=1.005 (1.000-1.035); UR Morphine/Opiate cutoff 300 Negative (Negative); Ur Creatinine Normal (Normal); Ur Specific Gravity Normal (Normal); Urine Amphetamines Negative (Negative); Urine Barbiturates Negative (Negative); Urine Benzodiazepines Negative (Negative); Urine Cocaine Negative (Negative); Urine MDMA Negative (Negative); Urine Methadone Negative (Negative); Urine Methamphetamines Negative (Negative); Urine Oxycodone Negative (Negative); Urine Phencyclidine Negative (Negative); Urine Tetrahydrocannabinol Negative (Negative); Urine Tricyclic Antidepressant Negative (Negative); Urine pH Normal (Normal); Urobilinogen Urine UA 0.2 E.U./dL (0.2)
[2023-12-05 17:38] LABS: Bacteria Urine None Seen; Culture Indicated Urine Cult Not Indicated; RBC Urine None Seen (0-5/HPF); Squamous Epithelial Cell Urine None Seen (0-5/HPF); Urine Volume 10mL (spun); WBC Urine None Seen (0-5/HPF)
== END 2023-12-05 18:38 | disposition home or self-care (01) ==
PROVIDERS: Emergency Provider Emergency Medicine; Family Provider Internal Medicine; PCP Internal Medicine
DX: H53.452 Other localized visual field defect, left eye (principal); R00.1 Bradycardia, unspecified
CPT/HCPCS: 36415; 70450; 70496; 70498; 70551; 80053; 80305; 80320; 81001; 81003; 82550; 84484; 85025; 85610; 85730; 93005; 99285; Q9967

== ENCOUNTER 2025-03-05 14:45 | Emergency (ER) | payer MEDICARE, OTHER, SELFPAY ==
[2023-09-21 14:34] VITALS: BMI 29.6
[2025-03-05 14:57] VITALS: BP 150/67; PULSE 73; RESP 20; TEMP 36.6; O2SAT 97; BMI 29.9
--- NOTE | 2025-03-05 15:06 | DI.RAD.S_ITS ---
PROCEDURE: XR CHEST 1V INDICATIONS: Chest Pain TECHNIQUE: One view of the chest was acquired. COMPARISON: [facility], CR, XR CHEST 1V, 10/09/2023, 20:10. [facility], CR, XR CHEST 1V, 07/01/2023, 10:24. FINDINGS AND IMPRESSION: No airspace consolidation or pleural effusion on this single view study. Unchanged cardiomediastinal contours. Normal heart size. Degenerative osseous changes. Dictated by: Oswaldo Flores M.D. on 03/05/2025 at 16:43 Approved by: Oswaldo Flores M.D. on 03/05/2025 at 16:43
--- NOTE | 2025-03-05 15:13 | EKG_ITS ---
[address] [address] Test Date: 2025-03-05 Pat Name: Froy Scanlon Department: [facility] Room: Gender: Male Supervisor Bindery: YARIEL : 1945 Requested By: Order Number: [id number] Reading MD: Elpidio Nelson Measurements Intervals [place] Rate: 67 P: 83 LA: 152 QRS: 34 QRSD: 100 T: 43 QT: 438 QTc: 462 Interpretive Statements Normal sinus rhythm Electronically Signed On 03-08-2025 16:47:17 PDT by Elpidio Nelson
[2025-03-05 15:52] LABS: Add Manual Diff / Slide Review NO; Hematocrit 25.1 % (41-53); Hemoglobin 8.8 g/dL (13.5-17.5); Lymphocytes Absolute Auto 800 /uL (1100-4500); Mean Corpuscular HGB Conc 34.9 % (30-36); Mean Corpuscular Hemoglobin 31.3 PG (26-34); Mean Corpuscular Volume 89.9 fL (80-100); Platelet Count 202 X10^3/uL (150-400)
[2025-03-05 16:00] LABS: INR 1.0 (0.9-1.3); Prothrombin Time 11.4 SECONDS (9.4-12.5)
[2025-03-05 16:02] LABS: PTT Partial Thromboplastin Tim 24 SECONDS (25.1-36.5)
[2025-03-05 16:16] LABS: Alanine Aminotransferase 28 IU/L (<50); Albumin 3.8 g/dL (3.5-5.0); Albumin Globulin Ratio 1.8 (1.0-2.8); Alkaline Phosphatase 42 U/L (38-126); Blood Urea Nitrogen 13 mg/dL (9-20); Calcium 9.5 mg/dL (8.4-10.2); Carbon Dioxide 23 mmol/L (22-32); Chloride 104 mmol/L (98-107); Creatine Kinase 135 U/L (55-170); Estimated Glomerular Filt Rate > 60 mL/min (>60); Globulin 2.1 g/dL (1.7-4.1); Glucose 126 mg/dL (70-99); Lipase 42 U/L (23-300); Magnesium 2.0 mg/dL (1.6-2.3); Sodium 133 mmol/L (137-145); Total Protein 5.9 g/dL (6.3-8.2)
[2025-03-05 16:20] LABS: HEMOLYSIS 74 (0-50); Potassium 4.7 mmol/L (3.4-5.1)
[2025-03-05 16:28] LABS: NT-proBNP (BNP-Adult 18+) 1530 pg/mL (<450); Troponin I 0.012 ng/mL (0.01-0.034)
--- NOTE | 2025-03-05 19:25 | PC.NURSE ---
pt wanting to leave states he has been here for 4 hrs and in 25 yrs he has never had to wait this long for care in the ED attempted to explain to pt that the ED had been busy and the rooms were full and there had been a lot of sick patients, pt verbalized understanding of that fact but did not understand the lack of updates
--- NOTE | 2025-03-06 10:46 | ED.SOB ---
HPI - SOB/Dyspnea General Chief Complaint: Shortness of Breath/Dyspnea Stated Complaint: SOB fatigue Time Seen by Provider: 03/05/25 14:51 Source: patient Mode of arrival: Ambulatory Limitations: no limitations Related Data Home Medications ?Medication ?Instructions ?Recorded ?Confirmed [DHEA] 50 mg PO QDAY ##0 01/10/17 09/21/23 [PHOSPHATIDYL SERINE] 100 mg PO HS ##0 01/10/17 09/21/23 [PREGNENOLONE] 100 mg PO QDAY ##0 01/10/17 09/21/23 [ULTRA VITAMIN K] 1 tab PO QDAY ##0 01/10/17 09/21/23 [VINPOCETINE] 1 tab PO HS ##0 01/10/17 09/21/23 gabapentin 300 mg capsule 900 mg PO BID ##0 01/10/17 09/21/23 (Neurontin) lutein 25 mg-zeaxanthin 5 mg 1 cap PO QDAY ##0 01/10/17 09/21/23 capsule metoprolol succinate 50 mg 50 mg PO BID ##0 01/10/17 09/21/23 tablet,extended release 24 hr dofetilide 250 mcg capsule 500 mcg PO BID ##0 06/02/17 09/21/23 simvastatin 20 mg tablet 20 mg PO BEDTIME ##0 06/02/17 09/21/23 lisinopril 30 mg tablet 30 mg PO BEDTIME 05/04/20 09/21/23 aspirin 81 mg tablet 81 mg PO DAILY 07/01/23 09/21/23 thyroid (pork) 120 mg tablet (Niva 120 mg PO BID 07/01/23 09/21/23 Thyroid) zolpidem 10 mg tablet 10 mg PO ONCE PM PRN Insomnia 07/01/23 09/21/23 Previous Rx's ?Medication ?Instructions ?Recorded nitroglycerin 0.4 mg sublingual 0.4 mg sublingual Q5-15M PRN chest 10/04/22 tablet pain #10 tabs metoprolol succinate 25 mg 25 mg PO DAILY PRN Palpitations 08/30/23 tablet,extended release 24 hr #30 tabs pantoprazole 40 mg tablet,delayed 40 mg PO BID #60 tabs 09/24/23 release Allergies Allergy/AdvReac Type Severity Reaction Status Date / Time No Known Drug Allergies Allergy Verified 03/05/25 14:58 Patient History Social History household members: spouse Smoking Status: Former smoker alcohol intake: current Smoking Status: Former smoker alcohol intake frequency: a few times a week Alcohol type: beer Exam Initial Vital Signs Initial Vital Signs: Vital Signs Temperature 98 F 03/05/25 14:57 Pulse Rate 73 03/05/25 14:57 Respiratory Rate 20 03/05/25 14:57 Blood Pressure 150/67 H 03/05/25 14:57 Pulse Oximetry 97 03/05/25 14:57 Oxygen Delivery Method Room Air 03/05/25 14:57 Course Orders Ordered: Discontinued Medications Aspirin (Aspirin 81 Mg Chew Tab) 324 mg PO NOW ONE Stop: 03/05/25 15:07 Last Admin: 03/05/25 16:16 Dose: Not Given Documented By: MDM - SOB/Dyspnea Lab Data 03/05/25 15:44 03/05/25 15:44 Labs: Lab Results 03/05/25 Range/Units 15:44 WBC 10.5 (4.5-11.0) X10^3/uL RBC 2.79 L (4.5-5.9) X10^6/uL Hgb 8.8 L (13.5-17.5) g/dL Hct 25.1 L (41-53) % MCV 89.9 (80-100) fL MCH 31.3 (26-34) PG MCHC 34.9 (30-36) % RDW 13.6 (11.6-14.8) % Plt Count 202 (150-400) X10^3/uL Neut % (Auto) 80.9 H (50-75) % Lymph % (Auto) 7.2 L (25-40) % [place] % (Auto) 10.9 (3-14) % Eos % (Auto) 0.7 L (2-4) % Baso % (Auto) 0.3 (0-2) % Neut # (Auto) 8500 H (4059-0702) /uL Lymph # (Auto) 800 L (4542-1683) /uL Good[place] # (Auto) 1200 H (0-900) /uL Eos # (Auto) 100 (0-450) /uL Baso # (Auto) 0 (0-100) /uL PT 11.4 (9.4-12.5) SECONDS INR 1.0 (0.9-1.3) APTT 24 L (25.1-36.5) SECONDS Sodium 133 L (137-145) mmol/L Potassium 4.7 (3.4-5.1) mmol/L Chloride 104 (98-107) mmol/L Carbon Dioxide 23 (22-32) mmol/L BUN 13 (9-20) mg/dL Creatinine 1.07 (0.66-1.25) mg/dL Estimated GFR > 60 (>60) mL/min BUN/Creatinine Ratio 12.1 (6-22) Glucose 126 H (70-99) mg/dL Calcium 9.5 (8.4-10.2) mg/dL Magnesium 2.0 (1.6-2.3) mg/dL Total Bilirubin 0.7 (0.2-1.3) mg/dL AST 43 (17-59) IU/L ALT 28 (<50) IU/L Alkaline Phosphatase 42 (38-126) U/L Total Creatine Kinase 135 (55-170) U/L Troponin I 0.012 (0.01-0.034) ng/mL NT-Pro-B Natriuret Pep 1530 H (<450) pg/mL Total Protein 5.9 L (6.3-8.2) g/dL Albumin 3.8 (3.5-5.0) g/dL Globulin 2.1 (1.7-4.1) g/dL Albumin/Globulin Ratio 1.8 (1.0-2.8) Lipase 42 (23-300) U/L Discharge Plan Departure Patient Disposition: Left Without Being Seen Clinical Impression: Patient left after triage Prescriptions: No Action [DHEA] 50 mg PO QDAY Qty: 0 metoprolol succinate 50 MG tablet extended release 24 hr 50 mg PO BID Qty: 0 [PREGNENOLONE] 100 mg PO QDAY Qty: 0 gabapentin [Neurontin] 300 MG capsule 900 mg PO BID Qty: 0 lutein-zeaxanthin 1 EACH capsule 1 cap PO QDAY Qty: 0 [PHOSPHATIDYL SERINE] 100 mg PO HS Qty: 0 [ULTRA VITAMIN K] 1 tab PO QDAY Qty: 0 [VINPOCETINE] 1 tab PO HS Qty: 0 dofetilide 250 MCG capsule 500 mcg PO BID Qty: 0 simvastatin 20 MG tablet 20 mg PO BEDTIME Qty: 0 lisinopril 30 mg Tablet 30 mg PO BEDTIME metoprolol succinate 25 mg tablet extended release 24 hr 25 mg PO DAILY PRN (Reason: Palpitations) Qty: 30 2RF nitroglycerin 0.4 mg tablet, sublingual 0.4 mg sublingual Q5-15M PRN (Reason: chest pain) Qty: 10 0RF Rx Instructions: do not exceed 3 doses per episode aspirin 81 mg Tablet 81 mg PO DAILY thyroid (pork) [Niva Thyroid] 120 mg tablet 120 mg PO BID zolpidem 10 mg tablet 10 mg PO ONCE PM PRN (Reason: Insomnia) pantoprazole 40 mg Tablet,Delayed Release (Dr/Ec) 40 mg PO BID Qty: 60 2RF
== END 2025-03-05 19:26 | disposition left against medical advice (07) ==
PROVIDERS: Family Medicine; Emergency Provider Emergency Medicine; Family Provider Internal Medicine; PCP Internal Medicine
DX: R06.02 Shortness of breath (principal); R07.9 Chest pain, unspecified
CPT/HCPCS: 71045; 80053; 82550; 83690; 83735; 83880; 84484; 85025; 85610; 85730; 93005; 99281